=== PATIENT | male | born 1990 | race Caucasian/White ===

== ENCOUNTER 2017-03-05 23:10 | Emergency (ER) | payer BC, MEDICAID ==
[2017-03-05 23:26] VITALS: BP 186/109
== END 2017-03-06 01:08 | disposition left against medical advice (07) ==
LOC: MW.ED 23:10
DX: Z53.20 Procedure and treatment not carried out because of patient's decision for unspecified reasons (principal)
CPT/HCPCS: 93005; 99283-25

== ENCOUNTER 2017-06-23 08:20 | Emergency (ER) | payer MEDICAID ==
[2017-06-23] MEDS ORDERED: Sodium Chloride 0.9% 1,000 ML IV SCH (08:45)
[2017-06-23] MEDS ORDERED: Sodium Chloride 0.9% 2,000 ML IV ONE (08:45)
--- NOTE | 2017-06-23 08:49 | EDM.PDOC ---
ED HPI GENERAL MEDICAL PROBLEM - General Chief Complaint: General Stated Complaint: EXCESSIVE THIRST Time Seen by Provider: 06/23/17 10:57 - History of Present Illness INITIAL COMMENTS - FREE TEXT/NARRATIVE: HISTORY AND PHYSICAL: History of present illness: Patient 27-year-old white male presents with concern of polydipsia polyuria and blood sugar that was high per friends reading along with positive ketones in his urine he states he's had these symptoms for the better part of one week. He denies vomiting diarrhea fever chills chest pain shortness breath or other concern Review of systems: As per history of present illness and below otherwise all systems reviewed and negative. Past medical history: As per history of present illness and as reviewed below otherwise noncontributory. Surgical history: As per history of present illness and as reviewed below otherwise noncontributory. Social history: No reported history of drug or alcohol abuse. Family history: As per history of present illness and as reviewed below otherwise noncontributory. Physical exam: HEENT: Atraumatic, normocephalic, pupils reactive, negative for conjunctival pallor or scleral icterus, mucous membranes dry, throat clear, neck supple, nontender, trachea midline. Lungs: Clear to auscultation, breath sounds equal bilaterally, chest nontender. Heart: S1S2, regular, negative for clicks, rubs, or JVD. Abdomen: Soft, nondistended, nontender. Negative for masses or hepatosplenomegaly. Negative for costovertebral tenderness. Pelvis: Stable nontender. Genitourinary: Deferred. Rectal: Deferred. Extremities: Atraumatic, negative for cords or calf pain. Neurovascular unremarkable. Neuro: Awake, alert, oriented. Cranial nerves II through XII unremarkable. Cerebellum unremarkable. Motor and sensory unremarkable throughout. Exam nonfocal. Diagnostics: CBC CMP EKG chest x-ray ABG UA serum ketones Therapeutics: Normal saline 2 L bolus Impression: #1 new onset diabetes Definitive disposition and diagnosis as appropriate pending reevaluation and review of above. - Related Data Allergies Allergy/AdvReac Type Severity Reaction Status Date / Time No Known Allergies Allergy Verified 06/23/17 08:27 Home Meds: Home Meds . [No Known Home Meds] 03/05/17 [History] Past Medical History - Past Health History Medical/Surgical History: Denies Medical/Surgical History HEENT History: Reports: None Other HEENT History: multiple dental caries Cardiovascular History: Reports: Hypertension Other Cardiovascular History: pt claimed that he has on and off high BP but not on any medication Respiratory History: Reports: None Gastrointestinal History: Reports: None Genitourinary History: Reports: None Musculoskeletal History: Reports: Gout Neurological History: Reports: None Psychiatric History: Reports: Anxiety Endocrine/Metabolic History: Reports: None Hematologic History: Reports: None Oncologic (Cancer) History: Reports: None - Infectious Disease History Infectious Disease History: Reports: Chicken Pox - Past Surgical History HEENT Surgical History: Reports: Tonsillectomy Cardiovascular Surgical History: Reports: None GI Surgical History: Reports: Appendectomy Social & Family History - Family History Family Medical History: Noncontributory - Tobacco Use Smoking Status *Q: Never Smoker Used Tobacco, but Quit: Yes Month Tobacco Last Used: years ago Second Hand Smoke Exposure: No - Caffeine Use Caffeine Use: Reports: Soda Caffeine Use Comment: "every week" - Alcohol Use Days Per Week of Alcohol Use: 0 - Recreational Drug Use Recreational Drug Use: No Drug Use in Last 12 Months: No Recreational Drug Type: Reports: Marijuana/Hashish Recreational Drug Use Frequency: Not Used In Over 1 Year Recreational Drug Last Use: 5 years ago ED ROS GENERAL - Review of Systems Review Of Systems: ROS reveals no pertinent complaints other than HPI. ED EXAM, GENERAL - Physical Exam Exam: See Below (See dictation) Course - Vital Signs Last Recorded V/S: Last Vital Signs Temp 35.8 C 06/23/17 08:22 Pulse 91 06/23/17 10:40 Resp 18 06/23/17 10:40 BP 142/80 H 06/23/17 10:40 Pulse Ox 94 L 06/23/17 10:40 - Orders/Labs/Meds Orders: Active Orders 24 hr Category Date Time Status EKG Documentation Completion [RC] STAT Care 06/23/17 08:45 Active BLOOD GAS ARTERIAL [BG] Stat Lab 06/23/17 08:44 Ordered Sodium Chloride 0.9% [Normal Saline] 1,000 ml Med 06/23/17 08:45 Active IV STAT Medication Orders Sodium Chloride (Normal Saline) 1,000 mls @ 125 mls/hr IV STAT ION Last Admin: 06/23/17 10:45 Dose: 125 mls/hr Labs: Laboratory Tests 06/23/17 06/23/17 06/23/17 Range/Units 08:43 09:25 09:25 WBC 4.47 (4.0-11.0) K/uL RBC 5.59 (4.50-5.90) M/uL Hgb 16.2 (13.0-17.0) g/dL Hct 44.9 (38.0-50.0) % MCV 80.3 (80.0-98.0) fL MCH 29.0 (27.0-32.0) pg MCHC 36.1 (31.0-37.0) g/dL RDW Std Deviation 37.2 (28.0-62.0) fl RDW Coeff of Gato 13 (11.0-15.0) % Plt Count 216 (150-400) K/uL MPV 9.80 (7.40-12.00) fL Neut % (Auto) 49.3 (48.0-80.0) % Lymph % (Auto) 37.8 (16.0-40.0) % [place] % (Auto) 9.8 (0.0-15.0) % Eos % (Auto) 2.7 (0.0-7.0) % Baso % (Auto) 0.4 (0.0-1.5) % Neut # (Auto) 2.2 (1.4-5.7) K/uL Lymph # (Auto) 1.7 (0.6-2.4) K/uL [place] # (Auto) 0.4 (0.0-0.8) K/uL Eos # (Auto) 0.1 (0.0-0.7) K/uL Baso # (Auto) 0.0 (0.0-0.1) K/uL Nucleated RBC % 0.0 /100WBC Nucleated RBCs # 0 K/uL VBG pH (7.31-7.41) VBG pCO2 (35-45) mmHG VBG pO2 (30-40) mmHG VBG HCO3 (22-30) mEq/L VBG Total CO2 (41-51) mmol/L VBG Base Excess (-3.0-3.0) Sodium 138 (136-146) mmol/L Potassium 3.9 (3.5-5.1) mmol/L Chloride 102 (98-110) mmol/L Carbon Dioxide 23 (21-31) mmol/L BUN 12 (6.0-23.0) mg/dL Creatinine 1.1 (0.6-1.5) mg/dL Est Cr Clr Drug Dosing 122.75 mL/min Estimated GFR (MDRD) > 60.0 ml/min Glucose 352 H (60-110) mg/dL POC Glucose 277 H (60-110) mg/dL Calcium 9.6 (8.8-10.8) mg/dL Total Bilirubin 0.7 (0.1-1.5) mg/dL AST 48 H (5-40) IU/L ALT 119 H (8-54) IU/L Alkaline Phosphatase 86 (40-150) Total Protein 7.6 (6.0-8.0) g/dL Albumin 4.5 (3.5-5.0) g/dL Globulin 3.1 (2.0-3.5) g/dL Albumin/Globulin Ratio 1.5 (1.3-2.8) Urine Color Urine Appearance Urine pH (5.0-8.0) Ur Specific [place] (1.001-1.035) Urine Protein (NEGATIVE) mg/dL Urine Glucose (UA) (NEGATIVE) mg/dL Urine Ketones (NEGATIVE) mg/dL Urine Occult Blood (NEGATIVE) Urine Nitrite (NEGATIVE) Urine Bilirubin (NEGATIVE) Urine Ictotest Urine Urobilinogen (<2.0) EU/dL Ur Leukocyte Esterase (NEGATIVE) Urine RBC (0-2/HPF) Urine WBC (0-5/HPF) Ur Epithelial Cells (NONE-FEW) Amorphous Sediment (NEGATIVE) Urine Bacteria (NEGATIVE) Fine Granular Casts (NEGATIVE) Ketones (NEG) 06/23/17 06/23/17 06/23/17 Range/Units 09:25 09:25 10:09 WBC (4.0-11.0) K/uL RBC (4.50-5.90) M/uL Hgb (13.0-17.0) g/dL Hct (38.0-50.0) % MCV (80.0-98.0) fL MCH (27.0-32.0) pg MCHC (31.0-37.0) g/dL RDW Std Deviation (28.0-62.0) fl RDW Coeff of [place]ato (11.0-15.0) % Plt Count (150-400) K/uL MPV (7.40-12.00) fL Neut % (Auto) (48.0-80.0) % Lymph % (Auto) (16.0-40.0) % [place] % (Auto) (0.0-15.0) % Eos % (Auto) (0.0-7.0) % Baso % (Auto) (0.0-1.5) % Neut # (Auto) (1.4-5.7) K/uL Lymph # (Auto) (0.6-2.4) K/uL [place] # (Auto) (0.0-0.8) K/uL Eos # (Auto) (0.0-0.7) K/uL Baso # (Auto) (0.0-0.1) K/uL Nucleated RBC % /100WBC Nucleated RBCs # K/uL VBG pH 7.37 (7.31-7.41) VBG pCO2 41 (35-45) mmHG VBG pO2 31 (30-40) mmHG VBG HCO3 24 (22-30) mEq/L VBG Total CO2 21 L (41-51) mmol/L VBG Base Excess -1.6 (-3.0-3.0) Sodium (136-146) mmol/L Potassium (3.5-5.1) mmol/L Chloride (98-110) mmol/L Carbon Dioxide (21-31) mmol/L BUN (6.0-23.0) mg/dL Creatinine (0.6-1.5) mg/dL Est Cr Clr Drug Dosing mL/min Estimated GFR (MDRD) ml/min Glucose (60-110) mg/dL POC Glucose (60-110) mg/dL Calcium (8.8-10.8) mg/dL Total Bilirubin (0.1-1.5) mg/dL AST (5-40) IU/L ALT (8-54) IU/L Alkaline Phosphatase (40-150) Total Protein (6.0-8.0) g/dL Albumin (3.5-5.0) g/dL Globulin (2.0-3.5) g/dL Albumin/Globulin Ratio (1.3-2.8) Urine Color DARK YELLOW Urine Appearance SLT CLOUDY Urine pH 6.0 (5.0-8.0) Ur Specific [place] >= 1.030 (1.001-1.035) Urine Protein 100 (NEGATIVE) mg/dL Urine Glucose (UA) 500 H (NEGATIVE) mg/dL Urine Ketones 40 H (NEGATIVE) mg/dL Urine Occult Blood NEGATIVE (NEGATIVE) Urine Nitrite NEGATIVE (NEGATIVE) Urine Bilirubin MODERATE H (NEGATIVE) Urine Ictotest NEGATIVE Urine Urobilinogen 0.2 (<2.0) EU/dL Ur Leukocyte Esterase NEGATIVE (NEGATIVE) Urine RBC 0-1 (0-2/HPF) Urine WBC 1-3 (0-5/HPF) Ur Epithelial Cells FEW (NONE-FEW) Amorphous Sediment MODERATE (NEGATIVE) Urine Bacteria FEW (NEGATIVE) Fine Granular Casts FEW (NEGATIVE) Ketones NEGATIVE (NEG) Meds: Medications Generic Name Dose Route Start Last Admin Trade Name Freq PRN Reason Stop Dose Admin Sodium Chloride 1,000 mls @ 125 mls/hr 06/23/17 08:45 06/23/17 10:45 Normal Saline IV 125 mls/hr STAT ION Administration Discontinued Medications Generic Name Dose Route Start Last Admin Trade Name Freq PRN Reason Stop Dose Admin Sodium Chloride 2,000 mls @ 999 mls/hr 06/23/17 08:45 06/23/17 09:29 Normal Saline IV 06/23/17 10:45 999 mls/hr STAT ONE Administration Departure - Departure Time of Disposition: 10:57 Disposition: Home, Self-Care 01 Condition: Good Clinical Impression: Diabetes mellitus, new onset - Discharge Information Referrals: PCP,None [Primary Care Provider] - Forms: ED Department Discharge Additional Instructions: The following information is given to patients seen in the emergency department who are being discharged to home. This information is to outline your options for follow-up care. We provide all patients seen in our emergency department with a follow-up referral. The need for follow-up, as well as the timing and circumstances, are variable depending upon the specifics of your emergency department visit. If you don't have a primary care physician on staff, we will provide you with a referral. We always advise you to contact your personal physician following an emergency department visit to inform them of the circumstance of the visit and for follow-up with them and/or the need for any referrals to a consulting specialist. The emergency department will also refer you to a specialist when appropriate. This referral assures that you have the opportunity for followup care with a specialist. All of these measure are taken in an effort to provide you with optimal care, which includes your followup. Under all circumstances we always encourage you to contact your private physician who remains a resource for coordinating your care. When calling for followup care, please make the office aware that this follow-up is from your recent emergency room visit. If for any reason you are refused follow-up, please contact the [facility] emergency department at and asked to speak to the emergency department charge nurse. Glyburide as prescribed follow-up clinic as discussed/scheduled return as needed as discussed dietary considerations as discussed - My Orders Last 24 Hours: My Active Orders 06/23/17 08:44 BLOOD GAS ARTERIAL [BG] Stat 06/23/17 08:45 EKG Documentation Completion [RC] STAT Sodium Chloride 0.9% [Normal Saline] 1,000 ml IV STAT - Assessment/Plan Last 24 Hours: My Active Orders 06/23/17 08:44 BLOOD GAS ARTERIAL [BG] Stat 06/23/17 08:45 EKG Documentation Completion [RC] STAT Sodium Chloride 0.9% [Normal Saline] 1,000 ml IV STAT
[2017-06-23 09:53] LABS: CHLORIDE,CL 102 mmol/L (98-110); SODIUM,NA 138 mmol/L (136-146)
--- NOTE | 2017-06-23 10:41 | CR ---
EXAMINATION: Two-view chest (PA and Lateral views). HISTORY: Shortness of breath. FINDINGS: The trachea is midline. The cardiomediastinal silhouette is within normal limits. No pulmonary infilt rates, effusions or pneumothorax. Osseous structures appear unremarkable. IMPRESSION: No acute cardiopulmonary process.
[2017-06-23 12:11] VITALS: BP 158/94
== END 2017-06-23 11:25 | disposition home or self-care (01) ==
LOC: MW.ED 08:20
DX: E11.9 Type 2 diabetes mellitus without complications (principal); I10 Essential (primary) hypertension; Z98.890 Other specified postprocedural states; Z90.49 Acquired absence of other specified parts of digestive tract
CPT/HCPCS: 71020; 80053; 81001; 82009; 82803; 82962; 83036; 85025; 93005; 96360; 96361; 99284; J7040

== ENCOUNTER 2018-10-28 13:48 | Inpatient (IN) | payer MEDICAID ==
[2018-10-28] MEDS ORDERED: Ondansetron 4 MG/2 ML SDV IVPUSH ONE ×2 (14:33→16:39)
[2018-10-28] MEDS ORDERED: Morphine 2 MG/ML Syringe IVPUSH ONE (14:33)
[2018-10-28] MEDS ORDERED: Pantoprazole 40 MG Vial IVPUSH ONE (14:33)
[2018-10-28] MEDS ORDERED: Sodium Chloride 0.9% 10 ML Syringe FLUSH PRN (14:33)
[2018-10-28] MEDS ORDERED: Sodium Chloride 0.9% 2.5 ML Syringe FLUSH PRN (14:33)
[2018-10-28] MEDS ORDERED: Sodium Chloride 0.9% 1,000 ML IV ONE (14:33)
--- NOTE | 2018-10-28 14:37 | EDM.PDOC ---
ED HPI GENERAL MEDICAL PROBLEM - General Chief Complaint: Gastrointestinal Problem Stated Complaint: PAIN IN MIDDLE OF CHEST Time Seen by Provider: 10/28/18 14:25 - History of Present Illness INITIAL COMMENTS - FREE TEXT/NARRATIVE: HISTORY AND PHYSICAL: History of present illness: The patient is a 28-year-old male with no significant GI or cardiac history but has a loose diagnosis of acid reflux for which he takes the prescription medication he believes to be Protonix that he was given by Dr. Montoya in clinic , with whom he follows on a regular basis, and presents with complaints of epigastric and mid upper abdominal pain that started yesterday. The patient tells me that he has episodic vomiting pretty much all the time 4-5 times per week over the last 2 years and his provider has been working with him to start evaluation of that. He has never had endoscopy or any other imaging. His only surgical history is of an appendectomy. He says he has not had any cough or upper respiratory symptoms chest pain or shortness of breath but feels a burning -like sensation in his epigastric and mid abdominal area. He's had no diarrhea no urinary complaints and no flank pain. The pain only radiates slightly to his lower mid chest but does not localize right or left. He has no liver or pancreas history that he knows of. She has not tried any [id number] meds and says he has been pushing fluids and can tolerate that but he cannot eat food without vomiting. The reason why he came in today as because he has never had pain with his vomiting symptoms and now he is having that as well. He has vomited since last evening any solids and intermittent liquids. He has had feverish feelings and chills but no documented fever Review of systems: As per history of present illness and below otherwise all systems reviewed and negative. Past medical history: As per history of present illness and as reviewed below otherwise noncontributory. Surgical history: As per history of present illness and as reviewed below otherwise noncontributory. Social history: No reported history of drug or alcohol abuse. Family history: As per history of present illness and as reviewed below otherwise noncontributory. Physical exam: General: Well-developed well-nourished overweight man who is nontoxic and looks somewhat diaphoretic on my evaluation. He is nontoxic though and speaking clearly and easily HEENT: Atraumatic, normocephalic, negative for conjunctival pallor or scleral icterus, mucous membranes moist, throat clear, neck supple, nontender, trachea midline. Lungs: Clear to auscultation, breath sounds equal bilaterally, chest nontender. No work of breathing wheezing or stridor Heart: S1S2, regular rate and rhythm no overt murmurs Abdomen: Soft, nondistended, tender in the epigastrium and extending to just above the umbilicus in the midline but there is no right upper or left upper quadrant tenderness. Negative for masses or hepatosplenomegaly. Hypoactive bowel sounds and there is no rebound or guarding or tympany on percussion Pelvis: Stable nontender. Genitourinary: Deferred. Rectal: Deferred. Extremities: Atraumatic, negative for cords or calf pain. Neurovascular unremarkable. Neuro: Awake, alert, oriented. Cranial nerves II through XII unremarkable. Cerebellum unremarkable. Motor and sensory unremarkable throughout. Exam nonfocal. Diagnostics: EKG CBC CMP amylase lipase H. pylori influenza CT scan of the abdomen and pelvis Therapeutics: IV, IV fluids, Zofran, Protonix, morphine Patient is feeling better in the ED from a pain perspective but did require a second dose of Zofran for nausea. He has not had any vomiting here. I discussed with him and his significant other at bedside all testing results and need for observation admission for pancreatitis. He is agreeable and states understanding. 1718: case is discussed with Dr. Mayes who accepts the patient for observation admission. Impression: Epigastric abdominal pain and vomiting/pancreatitis ; history of episodic vomiting Definitive disposition and diagnosis as appropriate pending reevaluation and review of above. upper abd Pain Score (Numeric/FACES): 9 - Related Data Allergies Allergy/AdvReac Type Severity Reaction Status Date / Time No Known Allergies Allergy Verified 06/23/17 08:27 Home Meds: Home Meds . [No Known Home Meds] 03/05/17 [History] Past Medical History - Past Health History Medical/Surgical History: Denies Medical/Surgical History HEENT History: Reports: None Other HEENT History: multiple dental caries Cardiovascular History: Reports: Hypertension Other Cardiovascular History: pt claimed that he has on and off high BP but not on any medication Respiratory History: Reports: None Gastrointestinal History: Reports: None Genitourinary History: Reports: None Other Genitourinary History: fatty liver disease Musculoskeletal History: Reports: Gout Neurological History: Reports: None Psychiatric History: Reports: Anxiety Endocrine/Metabolic History: Reports: Diabetes, Type II Hematologic History: Reports: None Oncologic (Cancer) History: Reports: None - Infectious Disease History Infectious Disease History: Reports: Chicken Pox - Past Surgical History HEENT Surgical History: Reports: Tonsillectomy Cardiovascular Surgical History: Reports: None GI Surgical History: Reports: Appendectomy Social & Family History - Family History Family Medical History: Noncontributory - Tobacco Use Smoking Status *Q: Never Smoker - Caffeine Use Caffeine Use: Reports: Soda Caffeine Use Comment: "every week" - Recreational Drug Use Recreational Drug Use: No ED ROS GENERAL - Review of Systems Review Of Systems: ROS reveals no pertinent complaints other than HPI. ED EXAM, GENERAL - Physical Exam Exam: See Below (see Dictation) Course - Vital Signs Last Recorded V/S: Last Vital Signs Temp 36.4 C 10/28/18 14:06 Pulse 104 H 10/28/18 16:02 Resp 18 10/28/18 16:02 BP 132/59 L 10/28/18 16:02 Pulse Ox 98 10/28/18 16:02 - Orders/Labs/Meds Orders: Active Orders 24 hr Category Date Time Status Patient Status [ADT] Stat ADT 10/28/18 17:17 Ordered EKG Documentation Completion [RC] STAT Care 10/28/18 14:32 Active Abdomen Pelvis w Cont [CT] Stat Exams 10/28/18 14:32 Taken D5 1/2 NS w/ 20 mEq/L KCl 1,000 ml Med 10/28/18 17:15 Active IV ASDIRECTED Sodium Chloride 0.9% [Saline Flush] Med 10/28/18 14:33 Active 10 ml FLUSH ASDIRECTED PRN Sodium Chloride 0.9% [Saline Flush] Med 10/28/18 14:33 Active 2.5 ml FLUSH ASDIRECTED PRN Saline Lock Insert [OM.PC] Stat Oth 10/28/18 14:32 Ordered Medication Orders Potassium Chloride/Dextrose/Sod Cl (D5 1/2 Ns W/ 20 Meq/L Kcl) 1,000 mls @ 150 mls/hr IV ASDIRECTED ION Sodium Chloride (Saline Flush) 10 ml FLUSH ASDIRECTED PRN PRN Reason: Keep Vein Open Last Admin: 10/28/18 14:46 Dose: 10 ml Sodium Chloride (Saline Flush) 2.5 ml FLUSH ASDIRECTED PRN PRN Reason: Keep Vein Open Last Admin: 10/28/18 14:46 Dose: 2.5 ml Labs: Laboratory Tests 10/28/18 10/28/18 10/28/18 Range/Units 14:43 14:43 14:43 WBC 9.69 (4.0-11.0) K/uL RBC 6.11 H (4.50-5.90) M/uL Hgb 17.0 (13.0-17.0) g/dL Hct 49.4 (38.0-50.0) % MCV 80.9 (80.0-98.0) fL MCH 27.8 (27.0-32.0) pg MCHC 34.4 (31.0-37.0) g/dL RDW Std Deviation 39.2 (28.0-62.0) fl RDW Coeff of Gato 13 (11.0-15.0) % Plt Count 238 (150-400) K/uL MPV 9.50 (7.40-12.00) fL Neut % (Auto) 66.9 (48.0-80.0) % Lymph % (Auto) 19.6 (16.0-40.0) % [place] % (Auto) 10.2 (0.0-15.0) % Eos % (Auto) 3.1 (0.0-7.0) % Baso % (Auto) 0.2 (0.0-1.5) % Neut # (Auto) 6.5 H (1.4-5.7) K/uL Lymph # (Auto) 1.9 (0.6-2.4) K/uL [place] # (Auto) 1.0 H (0.0-0.8) K/uL Eos # (Auto) 0.3 (0.0-0.7) K/uL Baso # (Auto) 0.0 (0.0-0.1) K/uL Nucleated RBC % 0.0 /100WBC Nucleated RBCs # 0 K/uL Sodium 133 L (136-148) mmol/L Potassium 4.4 (3.5-5.1) mmol/L Chloride 99 (98-107) mmol/L Carbon Dioxide 16.4 L (21.0-32.0) mmol/L BUN 12 (7.0-18.0) mg/dL Creatinine 0.9 (0.8-1.3) mg/dL Est Cr Clr Drug Dosing 148.69 mL/min Estimated GFR (MDRD) > 60.0 ml/min Glucose 150 H (74-106) mg/dL Calcium 9.2 (8.5-10.1) mg/dL Total Bilirubin 0.7 (0.2-1.0) mg/dL AST 45 H (15-37) IU/L ALT 190 H (14-63) IU/L Alkaline Phosphatase 81 (46-116) U/L Total Protein 8.6 H (6.4-8.2) g/dL Albumin 4.1 (3.4-5.0) g/dL Globulin 4.5 H (2.6-4.0) g/dL Albumin/Globulin Ratio 0.9 (0.9-1.6) Amylase 112 (25-115) U/L Lipase 2121 H (73-393) U/L H. pylori IgG Antibody NEGATIVE (NEG) Meds: Medications Generic Name Dose Route Start Last Admin Trade Name Freq PRN Reason Stop Dose Admin Potassium Chloride/Dextrose/Sod Cl 1,000 mls @ 150 mls/hr 10/28/18 17:15 D5 1/2 Ns W/ 20 Meq/L Kcl IV ASDIRECTED ION Sodium Chloride 10 ml 10/28/18 14:33 10/28/18 14:46 Saline Flush FLUSH 10 ml ASDIRECTED PRN Administration Keep Vein Open Sodium Chloride 2.5 ml 10/28/18 14:33 10/28/18 14:46 Saline Flush FLUSH 2.5 ml ASDIRECTED PRN Administration Keep Vein Open Discontinued Medications Generic Name Dose Route Start Last Admin Trade Name Freq PRN Reason Stop Dose Admin Sodium Chloride 1,000 mls @ 999 mls/hr 10/28/18 14:33 10/28/18 14:46 Normal Saline IV 10/28/18 15:33 999 mls/hr STAT ONE Administration Iopamidol 100 ml 10/28/18 16:09 10/28/18 16:09 Isovue Multipack-370 (76%) IVPUSH 10/28/18 16:10 100 ml ONETIME STA Administration Morphine Sulfate 4 mg 10/28/18 14:33 10/28/18 14:46 Morphine IVPUSH 10/28/18 14:34 4 mg ONETIME ONE Administration Ondansetron HCl 4 mg 10/28/18 14:33 10/28/18 14:46 Zofran IVPUSH 10/28/18 14:34 4 mg ONETIME ONE Administration Ondansetron HCl 4 mg 10/28/18 16:39 10/28/18 16:45 Zofran IVPUSH 10/28/18 16:40 4 mg ONETIME ONE Administration Pantoprazole Sodium 80 mg 10/28/18 14:33 10/28/18 14:46 Protonix Iv IVPUSH 10/28/18 14:34 80 mg .BOLUS ONE Administration Departure - Departure Time of Disposition: 17:18 Disposition: Refer to Observation Condition: Good Clinical Impression: Pancreatitis - Discharge Information Referrals: Shan Montoya MD [Primary Care Provider] - Forms: ED Department Discharge - My Orders Last 24 Hours: My Active Orders 10/28/18 14:32 EKG Documentation Completion [RC] STAT Abdomen Pelvis w Cont [CT] Stat Saline Lock Insert [OM.PC] Stat 10/28/18 14:33 Sodium Chloride 0.9% [Saline Flush] 10 ml FLUSH ASDIRECTED PRN Sodium Chloride 0.9% [Saline Flush] 2.5 ml FLUSH ASDIRECTED PRN 10/28/18 17:15 D5 1/2 NS w/ 20 mEq/L KCl 1,000 ml IV ASDIRECTED 10/28/18 17:17 Patient Status [ADT] Stat - Assessment/Plan Last 24 Hours: My Active Orders 10/28/18 14:32 EKG Documentation Completion [RC] STAT Abdomen Pelvis w Cont [CT] Stat Saline Lock Insert [OM.PC] Stat 10/28/18 14:33 Sodium Chloride 0.9% [Saline Flush] 10 ml FLUSH ASDIRECTED PRN Sodium Chloride 0.9% [Saline Flush] 2.5 ml FLUSH ASDIRECTED PRN 10/28/18 17:15 D5 1/2 NS w/ 20 mEq/L KCl 1,000 ml IV ASDIRECTED 10/28/18 17:17 Patient Status [ADT] Stat
[2018-10-28 15:28] LABS: CHLORIDE,CL 99 mmol/L (98-107); SODIUM,NA 133 mmol/L (136-148)
[2018-10-28] MEDS ORDERED: Iopamidol 755 MG/ML 500 ML Multipack Bottle IVPUSH STA (16:09)
[2018-10-28] MEDS ORDERED: D5 1/2 NS w/ 20 mEq/L KCl 1,000 ML IV SCH (17:15)
[2018-10-28] MEDS ORDERED: Acetaminophen 325 MG Tab PO PRN (17:35)
--- NOTE | 2018-10-28 17:43 | PCM.HP ---
H&P History of Present Illness - General Date of Service: 10/28/18 Admit Problem/Dx: Admission Diagnosis/Problem Admission Diagnosis/Problem Pancreatitis Source of Information: Patient History Limitations: Reports: No Limitations - History of Present Illness Initial Comments - Free Text/Narative: The patient is a 28-year-old gentleman who presented to the emergency department this afternoon with a complaint of abdominal pain in the epigastrium that had been going on for past 3-4 days. The patient also says that he has had periods of episodic vomiting 4-5 times a week over the past several years as well. The patient has described the pain in the epigastrium as sharp, stabbing and burning type sensation in the lower part of his chest. The patient says that he does not have a history of H. pylori. The patient also has reported episodes of waterbrash waking him up in the middle of the night. The patient has denied alcohol consumption recently. Patient also has had no specific aggravating or relieving factors for his pain. Patient has denied any fevers but has had chills and sweating associated with this episode. The patient only has had an appendectomy recently. He is also being treated for hypertension. Patient is also taking medication for depression as well. The patient has been taking medication for diabetes as well. Onset of Symptoms: Reports: Gradual Duration of Symptoms: Reports: Day(s):, Getting Worse Location: Reports: Abdomen Quality: Reports: Burning, Stabbing Severity: Moderate Improves with: Reports: Rest Worsens with: Reports: Movement Associated Symptoms: Reports: Diaphoresis, Fever/Chills upper abd Pain Score (Numeric/FACES): 9 Epigastric Pain Score (Numeric/FACES): 4 - Related Data Allergies/Adverse Reactions: Allergies Allergy/AdvReac Type Severity Reaction Status Date / Time No Known Allergies Allergy Verified 06/23/17 08:27 Home Medications: Home Meds Empagliflozin [Jardiance] 10 mg PO DAILY 10/28/18 [History] Escitalopram [Lexapro] 10 mg PO DAILY 10/28/18 [History] Liraglutide [Victoza 3-[place]] 1.2 mg SUBCUT DAILY 10/28/18 [History] Lisinopril [Prinivil] 5 mg PO DAILY 10/28/18 [History] Pantoprazole Sodium [Protonix] 40 mg PO DAILY 10/28/18 [History] Rosuvastatin Calcium 20 mg PO BEDTIME 10/28/18 [History] Testosterone Cypionate 100 mg IM WEEKLY 10/28/18 [History] metFORMIN HCl [Glucophage] 1,000 mg PO BIDMEALS 10/28/18 [History] Past Medical History - Past Health History Medical/Surgical History: Denies Medical/Surgical History HEENT History: Reports: None Other HEENT History: multiple dental caries Cardiovascular History: Reports: Hypertension Other Cardiovascular History: pt claimed that he has on and off high BP but not on any medication Respiratory History: Reports: None Gastrointestinal History: Reports: None Genitourinary History: Reports: None Other Genitourinary History: fatty liver disease Musculoskeletal History: Reports: Gout Neurological History: Reports: None Psychiatric History: Reports: Anxiety Endocrine/Metabolic History: Reports: Diabetes, Type II Hematologic History: Reports: None Immunologic History: Reports: None Oncologic (Cancer) History: Reports: None - Infectious Disease History Infectious Disease History: Reports: Chicken Pox - Past Surgical History HEENT Surgical History: Reports: Tonsillectomy Cardiovascular Surgical History: Reports: None GI Surgical History: Reports: Appendectomy Social & Family History - Family History Family Medical History: Noncontributory - Tobacco Use Smoking Status *Q: Never Smoker - Caffeine Use Caffeine Use: Reports: Soda Caffeine Use Comment: "every week" - Recreational Drug Use Recreational Drug Use: No - Living Situation & Occupation Living situation: Reports: Single, with Family Occupation: Unemployed H&P Review of Systems - Review of Systems: Review Of Systems: See Below General: Reports: Malaise, Weakness HEENT: Reports: No Symptoms Pulmonary: Reports: Shortness of Breath Cardiovascular: Reports: No Symptoms Gastrointestinal: Reports: Abdominal Pain. Denies: Black Stool, Hematemesis, Hematochezia Genitourinary: Reports: No Symptoms Musculoskeletal: Reports: Back Pain Skin: Reports: No Symptoms Psychiatric: Reports: No Symptoms Neurological: Reports: Dizziness Hematologic/Lymphatic: Reports: No Symptoms Immunologic: Reports: No Symptoms Exam - Exam Exam: See Below - Vital Signs Vital Signs: Last Vital Signs Temp 36.4 C 10/28/18 14:06 Pulse 106 H 10/28/18 17:33 Resp 16 10/28/18 17:33 BP 122/73 10/28/18 17:33 Pulse Ox 95 10/28/18 17:33 Weight: 181.437 kg - Exam Quality Assessment: No: Supplemental Oxygen General: Alert (Obese), Oriented, Cooperative, Moderate Distress HEENT: Conjunctiva Clear, EACs Clear, EOMI, Nares Patent. No: Mucosa Moist & [place] (Dry) Neck: Supple, Trachea Midline Lungs: Clear to Auscultation, Normal Respiratory Effort Cardiovascular: Regular Rhythm, Tachycardia (Rate is 110 on monitor.) GI/Abdominal Exam: Normal Bowel Sounds, Soft, No Distention, Tender (Epigastrum) , Other (Obese). No: Guarding, Rigid, Rebound (Male) Exam: Deferred Rectal (Males) Exam: Deferred Back Exam: Normal Inspection, Full Range of Motion Extremities: Normal Inspection, No Pedal Edema Skin: Warm, Dry, Intact Neurological: Cranial Nerves Intact, Reflexes Equal Bilateral Neuro Extensive - Mental Status: Alert Psychiatric: Alert, Normal Affect, Normal Mood - Patient Data Lab Results Last 24 hrs: Laboratory Results - last 24 hr 10/28/18 10/28/18 10/28/18 Range/Units 14:43 14:43 14:43 WBC 9.69 (4.0-11.0) K/uL RBC 6.11 H (4.50-5.90) M/uL Hgb 17.0 (13.0-17.0) g/dL Hct 49.4 (38.0-50.0) % MCV 80.9 (80.0-98.0) fL MCH 27.8 (27.0-32.0) pg MCHC 34.4 (31.0-37.0) g/dL RDW Std Deviation 39.2 (28.0-62.0) fl RDW Coeff of Gato 13 (11.0-15.0) % Plt Count 238 (150-400) K/uL MPV 9.50 (7.40-12.00) fL Neut % (Auto) 66.9 (48.0-80.0) % Lymph % (Auto) 19.6 (16.0-40.0) % [place] % (Auto) 10.2 (0.0-15.0) % Eos % (Auto) 3.1 (0.0-7.0) % Baso % (Auto) 0.2 (0.0-1.5) % Neut # (Auto) 6.5 H (1.4-5.7) K/uL Lymph # (Auto) 1.9 (0.6-2.4) K/uL [place] # (Auto) 1.0 H (0.0-0.8) K/uL Eos # (Auto) 0.3 (0.0-0.7) K/uL Baso # (Auto) 0.0 (0.0-0.1) K/uL Nucleated RBC % 0.0 /100WBC Nucleated RBCs # 0 K/uL Sodium 133 L (136-148) mmol/L Potassium 4.4 (3.5-5.1) mmol/L Chloride 99 (98-107) mmol/L Carbon Dioxide 16.4 L (21.0-32.0) mmol/L BUN 12 (7.0-18.0) mg/dL Creatinine 0.9 (0.8-1.3) mg/dL Est Cr Clr Drug Dosing 148.69 mL/min Estimated GFR (MDRD) > 60.0 ml/min Glucose 150 H (74-106) mg/dL Calcium 9.2 (8.5-10.1) mg/dL Total Bilirubin 0.7 (0.2-1.0) mg/dL AST 45 H (15-37) IU/L ALT 190 H (14-63) IU/L Alkaline Phosphatase 81 (46-116) U/L Total Protein 8.6 H (6.4-8.2) g/dL Albumin 4.1 (3.4-5.0) g/dL Globulin 4.5 H (2.6-4.0) g/dL Albumin/Globulin Ratio 0.9 (0.9-1.6) Amylase 112 (25-115) U/L Lipase 2121 H (73-393) U/L H. pylori IgG Antibody NEGATIVE (NEG) Result Diagrams: 10/29/18 05:49 10/29/18 05:49 Tai Results Last 24 hrs: Microbiology 10/28/18 14:05 Influenza Type A Antigen Screen - Final Nasopharyngeal Swab NEGATIVE INFLUENZA A VIRUS AG Influenza Type B Antigen Screen - Final NEGATIVE INFLUENZA B VIRUS AG - Problem List (1) Pancreatitis SNOMED Code(s): 48391123 ICD Code: K85.90 - ACUTE PANCREATITIS WITHOUT NECROSIS OR INFECTION, UNSP Status: Acute Priority: High Current Visit: Yes (2) Hypertension SNOMED Code(s): 20458851 ICD Code: I10 - ESSENTIAL (PRIMARY) HYPERTENSION Status: Chronic Priority : High Current Visit: Yes Qualifiers: Hypertension type: essential hypertension Qualified Code(s): I10 - Essential (primary) hypertension (3) Morbid obesity with BMI of 45.0-49.9, adult SNOMED Code(s): 897804773 ICD Code: E66.01 - MORBID (SEVERE) OBESITY DUE TO EXCESS CALORIES; Z68.42 - BODY MASS INDEX (BMI) 45.0-49.9, ADULT Status: Chronic Priority: High Current Visit: Yes (4) Transaminitis SNOMED Code(s): 946457543, 526569772 ICD Code: R74.0 - NONSPEC ELEV OF LEVELS OF TRANSAMNS & LACTIC ACID DEHYDRGNSE Status: Chronic Priority: High Current Visit: Yes (5) Diabetes mellitus, new onset SNOMED Code(s): 874593488, 002759048 ICD Code: E11.9 - TYPE 2 DIABETES MELLITUS WITHOUT COMPLICATIONS Status: Chronic Priority: High Current Visit: Yes Problem List Initiated/Reviewed/Updated: Yes Orders Last 24hrs: Active Orders 24 hr Category Date Time Status Patient Status [ADT] Stat ADT 10/28/18 17:17 Active Blood Glucose Check, Bedside [RC] QIDACANDBED Care 10/28/18 17:35 Ordered Blood Glucose Check, Bedside [RC] WITHMEALSANDBED Care 10/28/18 17:35 Ordered Diabetes Education [RC] Click to Edit Care 10/28/18 17:37 Ordered EKG Documentation Completion [RC] STAT Care 10/28/18 14:32 Active Oxygen Therapy [RC] PRN Care 10/28/18 17:33 Ordered Oxygen Therapy [RC] PRN Care 10/28/18 17:35 Ordered Up ad Renate [RC] ASDIRECTED Care 10/28/18 17:33 Ordered VTE/DVT Education [RC] PER UNIT ROUTINE Care 10/28/18 17:33 Ordered VTE/DVT Education [RC] PER UNIT ROUTINE Care 10/28/18 17:35 Ordered Vital Signs [RC] Q4H Care 10/28/18 17:33 Ordered Vital Signs [RC] Q4H Care 10/28/18 17:35 Ordered Nothing per Oral Now Diet [DIET] Diet 10/28/18 Breakfast Ordered Abdomen Ltd [US] Routine Exams 10/28/18 17:38 Ordered Abdomen Pelvis w Cont [CT] Stat Exams 10/28/18 14:32 Taken CBC WITH AUTO DIFF [HEME] AM Lab 10/29/18 05:11 Ordered COMPREHENSIVE METABOLIC PN,CMP [CHEM] AM Lab 10/29/18 05:11 Ordered LIPID PANEL [CHEM] Routine Lab 10/29/18 05:11 Ordered Acetaminophen [Tylenol] Med 10/28/18 17:35 Ordered 650 mg PO Q4H PRN D5 1/2 NS w/ 20 mEq/L KCl 1,000 ml Med 10/28/18 17:15 Active IV ASDIRECTED Enoxaparin [Lovenox] Med 10/28/18 17:45 Ordered 30 mg SUBCUT Q24H Insulin Aspart [NovoLOG] Med 10/28/18 21:00 Ordered See Protocol SUBCUT ACBREAKFASTANDBED Morphine Med 10/28/18 17:35 Ordered 2 mg IVPUSH Q2H PRN Ondansetron [Zofran] Med 10/28/18 17:35 Ordered 4 mg IVPUSH Q4H PRN Sodium Chloride 0.9% @ 125 MLS/HR (1000ml) Med 10/28/18 17:45 Ordered Sodium Chloride 0.9% [Normal Saline] 1,000 ml IV ASDIRECTED Sodium Chloride 0.9% [Saline Flush] Med 10/28/18 14:33 Active 10 ml FLUSH ASDIRECTED PRN Sodium Chloride 0.9% [Saline Flush] Med 10/28/18 14:33 Active 2.5 ml FLUSH ASDIRECTED PRN Glucose Management Sub Q Reflex [OM.PC] Click To Edit Oth 10/28/18 17:35 Ordered Saline Lock Insert [OM.PC] Stat Oth 10/28/18 14:32 Ordered Resuscitation Status Routine Resus Stat 10/28/18 17:33 Ordered Medication Orders Potassium Chloride/Dextrose/Sod Cl (D5 1/2 Ns W/ 20 Meq/L Kcl) 1,000 mls @ 150 mls/hr IV ASDIRECTED ION Last Admin: 10/28/18 17:32 Dose: 150 mls/hr Sodium Chloride (Saline Flush) 10 ml FLUSH ASDIRECTED PRN PRN Reason: Keep Vein Open Last Admin: 10/28/18 14:46 Dose: 10 ml Sodium Chloride (Saline Flush) 2.5 ml FLUSH ASDIRECTED PRN PRN Reason: Keep Vein Open Last Admin: 10/28/18 14:46 Dose: 2.5 ml Assessment/Plan Comment:: The patient is a 28-year-old gentleman who had been recently diagnosed with type 2 diabetes, hypertension and now has pancreatitis. The patient's lipase was elevated at 2121 units per liter and ceased CT scan showed stranding consistent with pancreatitis. Patient's physical examination is also consistent with acute pancreatitis. He has denied any alcohol use. I've ordered an ultrasound of his abdomen in order to exclude radiolucent gallstones as a cause of the patient's pancreatitis. I've also ordered a fasting lipid panel. The patient will be admitted to acute hospitalization. He'll be kept nothing by mouth. I've ordered fluids of normal saline at 125 mL per hour. The patient will also have IV narcotics for pain control. The patient should be appropriate for discharge as all laboratory testing is been completed, symptoms have improved and he has been able to tolerate diet. Interestingly the patient had been started on Victoza for his diabetes and pancreatitis has been listed as a severe side effect. Once other causes have been ruled out this can be considered as a likely contributor to the patient's pancreatitis.
[2018-10-28] MEDS: Sodium Chloride 0.9% 1,000 ML IV SCH (19:44)
[2018-10-28] MEDS: Morphine 10 MG/ML Syringe IVPUSH PRN (19:45)
[2018-10-28] MEDS: Enoxaparin 40 MG/0.4 ML Syringe SUBCUT SCH (20:36)
[2018-10-28] MEDS: Ondansetron 4 MG/2 ML SDV IVPUSH PRN (20:37)
[2018-10-28] MEDS ORDERED: Alum Hydrox/Mag Hydrox/Simeth 15 ML, Lidocaine 2% 5 ML PO ONE ×2 (20:47)
[2018-10-28] MEDS ORDERED: Insulin Aspart 100 Units/ML 3 ML Pen SUBCUT SCH (21:00)
[2018-10-28] MEDS ORDERED: Non-Formulary Medication 1 Each (Rosuvastatin Calcium [Rosuvastatin Calcium] 20 MG) PO SCH (21:00)
[2018-10-28] MEDS: Insulin Aspart 100 Units/ML 3 ML Pen SUBCUT SCH (21:01)
[2018-10-29] MEDS: Sodium Chloride 0.9% 1,000 ML IV SCH ×3 (03:46→19:04)
[2018-10-29] MEDS: Insulin Aspart 100 Units/ML 3 ML Pen SUBCUT SCH ×4 (03:52→21:17)
[2018-10-29] MEDS: Ondansetron 4 MG/2 ML SDV IVPUSH PRN ×3 (05:59→23:33)
[2018-10-29 06:35] LABS: CHLORIDE,CL 104 mmol/L (98-107); SODIUM,NA 138 mmol/L (136-148)
[2018-10-29] MEDS: Escitalopram 10 MG Tab PO SCH (08:04)
[2018-10-29] MEDS: Lisinopril 5 MG Tab PO SCH (08:07)
[2018-10-29] MEDS: Morphine 10 MG/ML Syringe IVPUSH PRN (08:07)
[2018-10-29] MEDS ORDERED: Morphine 2 MG/ML Syringe IVPUSH PRN (08:15)
[2018-10-29] MEDS ORDERED: Ibuprofen 600 MG Tab PO PRN (09:52)
[2018-10-29] MEDS ORDERED: traMADol 50 MG Tab PO PRN (09:53)
--- NOTE | 2018-10-29 10:41 | PCM.PN ---
- General Info Date of Service: 10/29/18 Admission Dx/Problem (Free Text): Admission Diagnosis/Problem Admission Diagnosis/Problem Pancreatitis Subjective Update: The patient is a 28-year-old gentleman who had been admitted yesterday secondary to acute pancreatitis. The patient also has new onset diabetes and he says that he was started on Victoza on 13 October. The patient also has a history of chronic nausea and vomiting. Overall, the patient's pain is better controlled. He has no nausea at this time. The patient has not been ambulating as he still has been on fluids. The patient also has been complaining of mild dysuria for the past couple of times he has urinated. Functional Status: Reports: Pain Controlled, Tolerating Diet (Clear liquids) - Review of Systems General: Reports: Weakness HEENT: Reports: No Symptoms Pulmonary: Reports: No Symptoms Cardiovascular: Reports: No Symptoms Gastrointestinal: Reports: No Symptoms Genitourinary: Reports: Dysuria, Burning Musculoskeletal: Reports: No Symptoms Skin: Reports: No Symptoms Neurological: Reports: No Symptoms Psychiatric: Reports: No Symptoms - Patient Data Vitals - Most Recent: Last Vital Signs Temp 36.3 C 10/29/18 08:18 Pulse 104 H 10/29/18 08:18 Resp 16 10/29/18 08:18 BP 115/54 L 10/29/18 08:18 Pulse Ox 94 L 10/29/18 08:18 Weight - Most Recent: 181.437 kg I&O - Last 24 Hours: Intake & Output 10/28/18 10/29/18 10/29/18 22:59 06:59 14:59 Intake Total 262 1072 Output Total 350 Balance 262 722 Lab Results Last 24 Hours: Laboratory Results - last 24 hr 10/28/18 10/28/18 10/28/18 Range/Units 14:43 14:43 14:43 WBC 9.69 (4.0-11.0) K/uL RBC 6.11 H (4.50-5.90) M/uL Hgb 17.0 (13.0-17.0) g/dL Hct 49.4 (38.0-50.0) % MCV 80.9 (80.0-98.0) fL MCH 27.8 (27.0-32.0) pg MCHC 34.4 (31.0-37.0) g/dL RDW Std Deviation 39.2 (28.0-62.0) fl RDW Coeff of Gato 13 (11.0-15.0) % Plt Count 238 (150-400) K/uL MPV 9.50 (7.40-12.00) fL Neut % (Auto) 66.9 (48.0-80.0) % Lymph % (Auto) 19.6 (16.0-40.0) % [place] % (Auto) 10.2 (0.0-15.0) % Eos % (Auto) 3.1 (0.0-7.0) % Baso % (Auto) 0.2 (0.0-1.5) % Neut # (Auto) 6.5 H (1.4-5.7) K/uL Lymph # (Auto) 1.9 (0.6-2.4) K/uL [place] # (Auto) 1.0 H (0.0-0.8) K/uL Eos # (Auto) 0.3 (0.0-0.7) K/uL Baso # (Auto) 0.0 (0.0-0.1) K/uL Nucleated RBC % 0.0 /100WBC Nucleated RBCs # 0 K/uL Sodium 133 L (136-148) mmol/L Potassium 4.4 (3.5-5.1) mmol/L Chloride 99 (98-107) mmol/L Carbon Dioxide 16.4 L (21.0-32.0) mmol/L BUN 12 (7.0-18.0) mg/dL Creatinine 0.9 (0.8-1.3) mg/dL Est Cr Clr Drug Dosing 148.69 mL/min Estimated GFR (MDRD) > 60.0 ml/min Glucose 150 H (74-106) mg/dL POC Glucose (60-110) mg/dL Calcium 9.2 (8.5-10.1) mg/dL Total Bilirubin 0.7 (0.2-1.0) mg/dL AST 45 H (15-37) IU/L ALT 190 H (14-63) IU/L Alkaline Phosphatase 81 (46-116) U/L Total Protein 8.6 H (6.4-8.2) g/dL Albumin 4.1 (3.4-5.0) g/dL Globulin 4.5 H (2.6-4.0) g/dL Albumin/Globulin Ratio 0.9 (0.9-1.6) Triglycerides (0-200) mg/dL Cholesterol (50-200) mg/dL LDL Cholesterol, Calc (60-180) mg/dL VLDL Cholesterol (5-55) mg/dL HDL Cholesterol (40-60) mg/dL Cholesterol/HDL Ratio (3.3-6.0) Amylase 112 (25-115) U/L Lipase 2121 H (73-393) U/L H. pylori IgG Antibody NEGATIVE (NEG) 10/28/18 10/29/18 10/29/18 Range/Units 20:43 03:50 05:49 WBC 7.05 (4.0-11.0) K/uL RBC 5.37 (4.50-5.90) M/uL Hgb 14.7 (13.0-17.0) g/dL Hct 43.9 (38.0-50.0) % MCV 81.8 (80.0-98.0) fL MCH 27.4 (27.0-32.0) pg MCHC 33.5 (31.0-37.0) g/dL RDW Std Deviation 40.1 (28.0-62.0) fl RDW Coeff of Gato 14 (11.0-15.0) % Plt Count 224 (150-400) K/uL MPV 9.40 (7.40-12.00) fL Neut % (Auto) 62.2 (48.0-80.0) % Lymph % (Auto) 24.5 (16.0-40.0) % [place] % (Auto) 9.4 (0.0-15.0) % Eos % (Auto) 3.8 (0.0-7.0) % Baso % (Auto) 0.1 (0.0-1.5) % Neut # (Auto) 4.4 (1.4-5.7) K/uL Lymph # (Auto) 1.7 (0.6-2.4) K/uL [place] # (Auto) 0.7 (0.0-0.8) K/uL Eos # (Auto) 0.3 (0.0-0.7) K/uL Baso # (Auto) 0.0 (0.0-0.1) K/uL Nucleated RBC % 0.0 /100WBC Nucleated RBCs # 0 K/uL Sodium (136-148) mmol/L Potassium (3.5-5.1) mmol/L Chloride (98-107) mmol/L Carbon Dioxide (21.0-32.0) mmol/L BUN (7.0-18.0) mg/dL Creatinine (0.8-1.3) mg/dL Est Cr Clr Drug Dosing mL/min Estimated GFR (MDRD) ml/min Glucose (74-106) mg/dL POC Glucose 117 H 125 H (60-110) mg/dL Calcium (8.5-10.1) mg/dL Total Bilirubin (0.2-1.0) mg/dL AST (15-37) IU/L ALT (14-63) IU/L Alkaline Phosphatase (46-116) U/L Total Protein (6.4-8.2) g/dL Albumin (3.4-5.0) g/dL Globulin (2.6-4.0) g/dL Albumin/Globulin Ratio (0.9-1.6) Triglycerides (0-200) mg/dL Cholesterol (50-200) mg/dL LDL Cholesterol, Calc (60-180) mg/dL VLDL Cholesterol (5-55) mg/dL HDL Cholesterol (40-60) mg/dL Cholesterol/HDL Ratio (3.3-6.0) Amylase (25-115) U/L Lipase (73-393) U/L H. pylori IgG Antibody (NEG) 10/29/18 10/29/18 Range/Units 05:49 08:21 WBC (4.0-11.0) K/uL RBC (4.50-5.90) M/uL Hgb (13.0-17.0) g/dL Hct (38.0-50.0) % MCV (80.0-98.0) fL MCH (27.0-32.0) pg MCHC (31.0-37.0) g/dL RDW Std Deviation (28.0-62.0) fl RDW Coeff of Gato (11.0-15.0) % Plt Count (150-400) K/uL MPV (7.40-12.00) fL Neut % (Auto) (48.0-80.0) % Lymph % (Auto) (16.0-40.0) % [place] % (Auto) (0.0-15.0) % Eos % (Auto) (0.0-7.0) % Baso % (Auto) (0.0-1.5) % Neut # (Auto) (1.4-5.7) K/uL Lymph # (Auto) (0.6-2.4) K/uL [place] # (Auto) (0.0-0.8) K/uL Eos # (Auto) (0.0-0.7) K/uL Baso # (Auto) (0.0-0.1) K/uL Nucleated RBC % /100WBC Nucleated RBCs # K/uL Sodium 138 (136-148) mmol/L Potassium 4.4 (3.5-5.1) mmol/L Chloride 104 (98-107) mmol/L Carbon Dioxide 19.8 L (21.0-32.0) mmol/L BUN 9 (7.0-18.0) mg/dL Creatinine 0.9 (0.8-1.3) mg/dL Est Cr Clr Drug Dosing 148.62 mL/min Estimated GFR (MDRD) > 60.0 ml/min Glucose 139 H (74-106) mg/dL POC Glucose 132 H (60-110) mg/dL Calcium 8.8 (8.5-10.1) mg/dL Total Bilirubin 0.6 (0.2-1.0) mg/dL AST 75 H (15-37) IU/L ALT 184 H (14-63) IU/L Alkaline Phosphatase 65 (46-116) U/L Total Protein 7.3 (6.4-8.2) g/dL Albumin 3.5 (3.4-5.0) g/dL Globulin 3.8 (2.6-4.0) g/dL Albumin/Globulin Ratio 0.9 (0.9-1.6) Triglycerides 186 (0-200) mg/dL Cholesterol 150 (50-200) mg/dL LDL Cholesterol, Calc 86 (60-180) mg/dL VLDL Cholesterol 37 (5-55) mg/dL HDL Cholesterol 27 L (40-60) mg/dL Cholesterol/HDL Ratio 5.6 (3.3-6.0) Amylase (25-115) U/L Lipase (73-393) U/L H. pylori IgG Antibody (NEG) Tai Results Last 24 Hours: Microbiology 10/28/18 14:05 Influenza Type A Antigen Screen - Final Nasopharyngeal Swab NEGATIVE INFLUENZA A VIRUS AG Influenza Type B Antigen Screen - Final NEGATIVE INFLUENZA B VIRUS AG Med Orders - Current: Current Medications Enoxaparin Sodium (Lovenox) 40 mg SUBCUT BEDTIME [facility] Last Admin: 10/28/18 20:36 Dose: 40 mg Escitalopram Oxalate (Lexapro) 10 mg PO DAILY [facility] Last Admin: 10/29/18 08:04 Dose: 10 mg Sodium Chloride (Normal Saline) 1,000 mls @ 125 mls/hr IV ASDIRECTED [facility] Last Admin: 10/29/18 03:46 Dose: 125 mls/hr Ibuprofen (Motrin) 600 mg PO Q6H PRN PRN Reason: Pain Insulin Aspart (Novolog) 0 unit SUBCUT Q6H [facility]; Protocol Last Admin: 10/29/18 08:23 Dose: Not Given Lisinopril (Prinivil) 5 mg PO DAILY [facility] Last Admin: 10/29/18 08:07 Dose: 5 mg Morphine Sulfate (Morphine) 2 mg IVPUSH Q2H PRN PRN Reason: Pain (severe 7-10) Stop: 10/29/18 17:35 Ondansetron HCl (Zofran) 4 mg IVPUSH Q4H PRN PRN Reason: Nausea/Vomiting Last Admin: 10/29/18 05:59 Dose: 4 mg Sodium Chloride (Saline Flush) 10 ml FLUSH ASDIRECTED PRN PRN Reason: Keep Vein Open Last Admin: 10/28/18 14:46 Dose: 10 ml Sodium Chloride (Saline Flush) 2.5 ml FLUSH ASDIRECTED PRN PRN Reason: Keep Vein Open Last Admin: 10/28/18 14:46 Dose: 2.5 ml Tramadol HCl (Ultram) 50 mg PO Q6H PRN PRN Reason: Pain Discontinued Medications Acetaminophen (Tylenol) 650 mg PO Q4H PRN PRN Reason: Pain (Mild 1-3)/fever Al Hydroxide/Mg Hydroxide 15 (ml/ Lidocaine HCl 5 ml) 0 ml PO ONETIME ONE Stop: 10/28/18 20:48 Last Admin: 10/28/18 22:24 Dose: 20 each Sodium Chloride (Normal Saline) 1,000 mls @ 999 mls/hr IV STAT ONE Stop: 10/28/18 15:33 Last Admin: 10/28/18 14:46 Dose: 999 mls/hr Potassium Chloride/Dextrose/Sod Cl (D5 1/2 Ns W/ 20 Meq/L Kcl) 1,000 mls @ 150 mls/hr IV ASDIRECTED [facility] Last Admin: 10/28/18 17:32 Dose: 150 mls/hr Insulin Aspart (Novolog) 0 unit SUBCUT ACBREAKFASTANDBED [facility]; Protocol Iopamidol (Isovue Multipack-370 (76%)) 100 ml IVPUSH ONETIME STA Stop: 10/28/18 16:10 Last Admin: 10/28/18 16:09 Dose: 100 ml Morphine Sulfate (Morphine) 4 mg IVPUSH ONETIME ONE Stop: 10/28/18 14:34 Last Admin: 10/28/18 14:46 Dose: 4 mg Morphine Sulfate (Morphine) 2 mg IVPUSH Q2H PRN PRN Reason: Pain (severe 7-10) Stop: 10/29/18 17:35 Last Admin: 10/29/18 08:07 Dose: 2 mg Non-Formulary Medication (Rosuvastatin Calcium [Rosuvastatin Calcium]) 20 mg PO BEDTIME [facility] Last Admin: 10/29/18 09:58 Dose: Not Given Ondansetron HCl (Zofran) 4 mg IVPUSH ONETIME ONE Stop: 10/28/18 14:34 Last Admin: 10/28/18 14:46 Dose: 4 mg Ondansetron HCl (Zofran) 4 mg IVPUSH ONETIME ONE Stop: 10/28/18 16:40 Last Admin: 10/28/18 16:45 Dose: 4 mg Pantoprazole Sodium (Protonix Iv) 80 mg IVPUSH .BOLUS ONE Stop: 10/28/18 14:34 Last Admin: 10/28/18 14:46 Dose: 80 mg - Exam Quality Assessment: No: Supplemental Oxygen General: Alert, Oriented, Cooperative, No Acute Distress HEENT: Pupils Equal, Pupils Reactive, EOMI. No: Mucous Membr. Moist/Kiefer (dry) Neck: Supple, Trachea Midline Lungs: Clear to Auscultation, Normal Respiratory Effort Cardiovascular: Regular Rate, Regular Rhythm, No Murmurs GI/Abdominal Exam: Normal Bowel Sounds, Soft, No Distention, Tender (Epigastrum) (Male) Exam: Deferred Back Exam: Normal Inspection, Full Range of Motion Extremities: Normal Inspection, No Pedal Edema Skin: Warm, Dry, Intact Neurological: No New Focal Deficit Psy/Mental Status: Alert, Normal Affect, Normal Mood - Problem List & Annotations (1) Pancreatitis SNOMED Code(s): 78422512 Code(s): K85.90 - ACUTE PANCREATITIS WITHOUT NECROSIS OR INFECTION, UNSP Status: Acute Priority: High Current Visit: Yes (2) Hypertension SNOMED Code(s): 02890766 Code(s): I10 - ESSENTIAL (PRIMARY) HYPERTENSION Status: Chronic Priority : High Current Visit: Yes Qualifiers: Hypertension type: essential hypertension Qualified Code(s): I10 - Essential (primary) hypertension (3) Morbid obesity with BMI of 45.0-49.9, adult SNOMED Code(s): 624479136 Code(s): E66.01 - MORBID (SEVERE) OBESITY DUE TO EXCESS CALORIES; Z68.42 - BODY MASS INDEX (BMI) 45.0-49.9, ADULT Status: Chronic Priority: High Current Visit: Yes (4) Transaminitis SNOMED Code(s): 734577754, 522998065 Code(s): R74.0 - NONSPEC ELEV OF LEVELS OF TRANSAMNS & LACTIC ACID DEHYDRGNSE Status: Chronic Priority: High Current Visit: Yes (5) Diabetes mellitus, new onset SNOMED Code(s): 181319401, 528429901 Code(s): E11.9 - TYPE 2 DIABETES MELLITUS WITHOUT COMPLICATIONS Status: Chronic Priority: High Current Visit: Yes - Problem List Review Problem List Initiated/Reviewed/Updated: Yes - My Orders Last 24 Hours: My Active Orders 10/28/18 17:33 Oxygen Therapy [RC] PRN Up ad Renate [RC] ASDIRECTED VTE/DVT Education [RC] PER UNIT ROUTINE Vital Signs [RC] Q4H Resuscitation Status Routine 10/28/18 17:35 Blood Glucose Check, Bedside [RC] Q6H Blood Glucose Check, Bedside [RC] QIDACANDBED Oxygen Therapy [RC] PRN Vital Signs [RC] Q4H Ondansetron [Zofran] 4 mg IVPUSH Q4H PRN Glucose Management Sub Q Reflex [OM.PC] Click To Edit 10/28/18 17:37 Diabetes Education [RC] Click to Edit 10/28/18 17:38 Abdomen Ltd [US] Routine 10/28/18 17:45 Sodium Chloride 0.9% [Normal Saline] 1,000 ml IV ASDIRECTED 10/28/18 21:00 Enoxaparin [Lovenox] 40 mg SUBCUT BEDTIME Insulin Aspart [NovoLOG] See Protocol SUBCUT Q6H 10/29/18 08:15 Morphine 2 mg IVPUSH Q2H PRN 10/29/18 09:00 Escitalopram [Lexapro] 10 mg PO DAILY Lisinopril [Prinivil] 5 mg PO DAILY 10/29/18 09:49 LIPASE [CHEM] Routine 10/29/18 09:50 UA W/MICROSCOPIC [URIN] Routine 10/29/18 09:52 Ibuprofen [Motrin] 600 mg PO Q6H PRN 10/29/18 09:53 traMADol [Ultram] 50 mg PO Q6H PRN 10/29/18 Lunch Clear Liquid Diet [DIET] - Plan Plan:: The patient is a 28-year-old gentleman who had been recently diagnosed with type 2 diabetes, hypertension and now has pancreatitis. The patient's lipase was elevated at 2121 units per liter and ceased CT scan showed stranding consistent with pancreatitis. Patient's physical examination is also consistent with acute pancreatitis. He has denied any alcohol use. I've ordered an ultrasound of his abdomen in order to exclude radiolucent gallstones as a cause of the patient's pancreatitis. I've also ordered a fasting lipid panel. The patient will be admitted to acute hospitalization. He'll be kept nothing by mouth. I've ordered fluids of normal saline at 125 mL per hour. The patient will also have IV narcotics for pain control. The patient should be appropriate for discharge as all laboratory testing is been completed, symptoms have improved and he has been able to tolerate diet. Interestingly the patient had been started on Victoza for his diabetes and pancreatitis has been listed as a severe side effect. Once other causes have been ruled out this can be considered as a likely contributor to the patient's pancreatitis. The patient is a 28-year-old gentleman who today is doing better. His pain is better controlled. The patient had a fasting lipid panel which did not show any evidence of hypertriglyceridemia. Ultrasound of his right upper quadrant for radiolucent stones is still pending. I've ordered repeat laboratory studies. The patient will also have a clear liquid diet for now. I'm concerned that the patient may have a side effect that has been noted with the use of Victoza. As a result of this of had the patient discontinue the use of this. He'll be kept on his other antidiabetic medication for the antrum. The patient's diet will be adjusted to include ADA as tolerated possibly today and he'll be kept on sliding scale insulin as necessary to for glycemic control. The patient also has been encouraged to ambulate. We'll continue with pain control for now. The patient should be appropriate for discharge in 1 day.
[2018-10-29] MEDS ORDERED: Alum Hydrox/Mag Hydrox/Simeth 15 ML, Lidocaine 2% 5 ML PO ONE ×2 (13:52)
[2018-10-29] MEDS: Morphine 2 MG/ML Syringe IVPUSH PRN ×2 (18:59→23:36)
[2018-10-29] MEDS: Pantoprazole 40 MG Tab.CR PO SCH (21:13)
[2018-10-29] MEDS: Enoxaparin 40 MG/0.4 ML Syringe SUBCUT SCH (21:14)
[2018-10-30] MEDS: Sodium Chloride 0.9% 1,000 ML IV SCH ×4 (02:01→20:13)
[2018-10-30] MEDS: Insulin Aspart 100 Units/ML 3 ML Pen SUBCUT SCH ×5 (03:55→20:41)
[2018-10-30 06:33] LABS: CHLORIDE,CL 104 mmol/L (98-107); SODIUM,NA 138 mmol/L (136-148)
[2018-10-30] MEDS: Pantoprazole 40 MG Tab.CR PO SCH (07:28)
[2018-10-30] MEDS: Morphine 2 MG/ML Syringe IVPUSH PRN ×3 (07:33→21:14)
[2018-10-30] MEDS: Lisinopril 5 MG Tab PO SCH (08:40)
[2018-10-30] MEDS: Escitalopram 10 MG Tab PO SCH (08:40)
[2018-10-30] MEDS ORDERED: Pantoprazole 40 MG Vial IVPUSH SCH (09:00)
[2018-10-30] MEDS ORDERED: Testosterone Cypionate 200 MG/ML MDV IM SCH (10:00)
--- NOTE | 2018-10-30 11:14 | PCM.PN ---
<José Streeter - Last Filed: 10/30/18 11:19> - General Info Date of Service: 10/30/18 Subjective Update: No acute events overnight. Afebrile. Pain under control overnight. He did have worsening pain during abdominal U/S. No chest pain, dyspnea. No vomiting. Currently, NPO. - Patient Data Vitals - Most Recent: Last Vital Signs Temp 36.2 C 10/30/18 08:00 Pulse 101 H 10/30/18 08:00 Resp 17 10/30/18 08:00 BP 153/69 H 10/30/18 08:40 Pulse Ox 94 L 10/30/18 08:00 Weight - Most Recent: 176.493 kg I&O - Last 24 Hours: Intake & Output 10/29/18 10/30/18 10/30/18 22:59 06:59 14:59 Intake Total 1655 500 Output Total 1575 Balance 80 500 Lab Results Last 24 Hours: Laboratory Results - last 24 hr 10/29/18 10/29/18 10/29/18 Range/Units 12:40 15:40 16:06 WBC (4.0-11.0) K/uL RBC (4.50-5.90) M/uL Hgb (13.0-17.0) g/dL Hct (38.0-50.0) % MCV (80.0-98.0) fL MCH (27.0-32.0) pg MCHC (31.0-37.0) g/dL RDW Std Deviation (28.0-62.0) fl RDW Coeff of [place]ato (11.0-15.0) % Plt Count (150-400) K/uL MPV (7.40-12.00) fL Neut % (Auto) (48.0-80.0) % Lymph % (Auto) (16.0-40.0) % [place] % (Auto) (0.0-15.0) % Eos % (Auto) (0.0-7.0) % Baso % (Auto) (0.0-1.5) % Neut # (Auto) (1.4-5.7) K/uL Lymph # (Auto) (0.6-2.4) K/uL [place] # (Auto) (0.0-0.8) K/uL Eos # (Auto) (0.0-0.7) K/uL Baso # (Auto) (0.0-0.1) K/uL Nucleated RBC % /100WBC Nucleated RBCs # K/uL Sodium (136-148) mmol/L Potassium (3.5-5.1) mmol/L Chloride (98-107) mmol/L Carbon Dioxide (21.0-32.0) mmol/L BUN (7.0-18.0) mg/dL Creatinine (0.8-1.3) mg/dL Est Cr Clr Drug Dosing mL/min Estimated GFR (MDRD) ml/min Glucose (74-106) mg/dL POC Glucose 134 H 122 H (60-110) mg/dL Calcium (8.5-10.1) mg/dL Total Bilirubin (0.2-1.0) mg/dL AST (15-37) IU/L ALT (14-63) IU/L Alkaline Phosphatase (46-116) U/L Total Protein (6.4-8.2) g/dL Albumin (3.4-5.0) g/dL Globulin (2.6-4.0) g/dL Albumin/Globulin Ratio (0.9-1.6) Lipase (73-393) U/L Urine Color YELLOW Urine Appearance SLT CLOUDY Urine pH 6.0 (5.0-8.0) Ur Specific [place] >= 1.030 (1.001-1.035) Urine Protein TRACE H (NEGATIVE) mg/dL Urine Glucose (UA) NEGATIVE (NEGATIVE) mg/dL Urine Ketones >=80 (NEGATIVE) mg/dL Urine Occult Blood NEGATIVE (NEGATIVE) Urine Nitrite NEGATIVE (NEGATIVE) Urine Bilirubin MODERATE H (NEGATIVE) Urine Urobilinogen 1.0 (<2.0) EU/dL Ur Leukocyte Esterase NEGATIVE (NEGATIVE) Urine RBC 0-2 (0-2/HPF) Urine WBC 1-3 (0-5/HPF) Ur Epithelial Cells OCCASIONAL (NONE-FEW) Urine Bacteria FEW (NEGATIVE) Waxy Casts 1-2 (NEGATIVE) 10/29/18 10/30/18 10/30/18 Range/Units 21:15 03:52 05:26 WBC 6.67 (4.0-11.0) K/uL RBC 5.21 (4.50-5.90) M/uL Hgb 14.6 (13.0-17.0) g/dL Hct 42.5 (38.0-50.0) % MCV 81.6 (80.0-98.0) fL MCH 28.0 (27.0-32.0) pg MCHC 34.4 (31.0-37.0) g/dL RDW Std Deviation 40.5 (28.0-62.0) fl RDW Coeff of [place] 14 (11.0-15.0) % Plt Count 205 (150-400) K/uL MPV 9.60 (7.40-12.00) fL Neut % (Auto) 57.0 (48.0-80.0) % Lymph % (Auto) 27.0 (16.0-40.0) % [place] % (Auto) 10.5 (0.0-15.0) % Eos % (Auto) 5.2 (0.0-7.0) % Baso % (Auto) 0.3 (0.0-1.5) % Neut # (Auto) 3.8 (1.4-5.7) K/uL Lymph # (Auto) 1.8 (0.6-2.4) K/uL [place] # (Auto) 0.7 (0.0-0.8) K/uL Eos # (Auto) 0.4 (0.0-0.7) K/uL Baso # (Auto) 0.0 (0.0-0.1) K/uL Nucleated RBC % 0.0 /100WBC Nucleated RBCs # 0 K/uL Sodium (136-148) mmol/L Potassium (3.5-5.1) mmol/L Chloride (98-107) mmol/L Carbon Dioxide (21.0-32.0) mmol/L BUN (7.0-18.0) mg/dL Creatinine (0.8-1.3) mg/dL Est Cr Clr Drug Dosing mL/min Estimated GFR (MDRD) ml/min Glucose (74-106) mg/dL POC Glucose 129 H 113 H (60-110) mg/dL Calcium (8.5-10.1) mg/dL Total Bilirubin (0.2-1.0) mg/dL AST (15-37) IU/L ALT (14-63) IU/L Alkaline Phosphatase (46-116) U/L Total Protein (6.4-8.2) g/dL Albumin (3.4-5.0) g/dL Globulin (2.6-4.0) g/dL Albumin/Globulin Ratio (0.9-1.6) Lipase (73-393) U/L Urine Color Urine Appearance Urine pH (5.0-8.0) Ur Specific [place] (1.001-1.035) Urine Protein (NEGATIVE) mg/dL Urine Glucose (UA) (NEGATIVE) mg/dL Urine Ketones (NEGATIVE) mg/dL Urine Occult Blood (NEGATIVE) Urine Nitrite (NEGATIVE) Urine Bilirubin (NEGATIVE) Urine Urobilinogen (<2.0) EU/dL Ur Leukocyte Esterase (NEGATIVE) Urine RBC (0-2/HPF) Urine WBC (0-5/HPF) Ur Epithelial Cells (NONE-FEW) Urine Bacteria (NEGATIVE) Waxy Casts (NEGATIVE) 10/30/18 Range/Units 05:26 WBC (4.0-11.0) K/uL RBC (4.50-5.90) M/uL Hgb (13.0-17.0) g/dL Hct (38.0-50.0) % MCV (80.0-98.0) fL MCH (27.0-32.0) pg MCHC (31.0-37.0) g/dL RDW Std Deviation (28.0-62.0) fl RDW Coeff of [place] (11.0-15.0) % Plt Count (150-400) K/uL MPV (7.40-12.00) fL Neut % (Auto) (48.0-80.0) % Lymph % (Auto) (16.0-40.0) % [place] % (Auto) (0.0-15.0) % Eos % (Auto) (0.0-7.0) % Baso % (Auto) (0.0-1.5) % Neut # (Auto) (1.4-5.7) K/uL Lymph # (Auto) (0.6-2.4) K/uL [place] # (Auto) (0.0-0.8) K/uL Eos # (Auto) (0.0-0.7) K/uL Baso # (Auto) (0.0-0.1) K/uL Nucleated RBC % /100WBC Nucleated RBCs # K/uL Sodium 138 (136-148) mmol/L Potassium 4.4 (3.5-5.1) mmol/L Chloride 104 (98-107) mmol/L Carbon Dioxide 19.8 L (21.0-32.0) mmol/L BUN 4 L (7.0-18.0) mg/dL Creatinine 0.7 L (0.8-1.3) mg/dL Est Cr Clr Drug Dosing 191.09 mL/min Estimated GFR (MDRD) > 60.0 ml/min Glucose 134 H (74-106) mg/dL POC Glucose (60-110) mg/dL Calcium 8.7 (8.5-10.1) mg/dL Total Bilirubin 0.6 (0.2-1.0) mg/dL AST 56 H (15-37) IU/L ALT 175 H (14-63) IU/L Alkaline Phosphatase 64 (46-116) U/L Total Protein 7.2 (6.4-8.2) g/dL Albumin 3.3 L (3.4-5.0) g/dL Globulin 3.9 (2.6-4.0) g/dL Albumin/Globulin Ratio 0.9 (0.9-1.6) Lipase 3068 H (73-393) U/L Urine Color Urine Appearance Urine pH (5.0-8.0) Ur Specific [place] (1.001-1.035) Urine Protein (NEGATIVE) mg/dL Urine Glucose (UA) (NEGATIVE) mg/dL Urine Ketones (NEGATIVE) mg/dL Urine Occult Blood (NEGATIVE) Urine Nitrite (NEGATIVE) Urine Bilirubin (NEGATIVE) Urine Urobilinogen (<2.0) EU/dL Ur Leukocyte Esterase (NEGATIVE) Urine RBC (0-2/HPF) Urine WBC (0-5/HPF) Ur Epithelial Cells (NONE-FEW) Urine Bacteria (NEGATIVE) Waxy Casts (NEGATIVE) Med Orders - Current: Current Medications Enoxaparin Sodium (Lovenox) 40 mg SUBCUT BEDTIME [facility] Last Admin: 10/29/18 21:14 Dose: 40 mg Escitalopram Oxalate (Lexapro) 10 mg PO DAILY [facility] Last Admin: 10/30/18 08:40 Dose: 10 mg Sodium Chloride (Normal Saline) 1,000 mls @ 200 mls/hr IV ASDIRECTED [facility] Last Admin: 10/30/18 09:23 Dose: 200 mls/hr Ibuprofen (Motrin) 600 mg PO Q6H PRN PRN Reason: Pain Insulin Aspart (Novolog) 0 unit SUBCUT Q6H [facility]; Protocol Last Admin: 10/30/18 10:00 Dose: Not Given Lisinopril (Prinivil) 5 mg PO DAILY [facility] Last Admin: 10/30/18 08:40 Dose: 5 mg Morphine Sulfate (Morphine) 2 mg IVPUSH Q4H PRN PRN Reason: Pain Last Admin: 10/30/18 07:33 Dose: 2 mg Ondansetron HCl (Zofran) 4 mg IVPUSH Q4H PRN PRN Reason: Nausea/Vomiting Last Admin: 10/29/18 23:33 Dose: 4 mg Pantoprazole Sodium (Protonix) 40 mg PO ACBREAKFAST [facility] Last Admin: 10/30/18 07:28 Dose: 40 mg Pantoprazole Sodium (Protonix Iv) 40 mg IVPUSH DAILY [facility] Last Admin: 10/30/18 09:42 Dose: 40 mg Sodium Chloride (Saline Flush) 10 ml FLUSH ASDIRECTED PRN PRN Reason: Keep Vein Open Last Admin: 10/28/18 14:46 Dose: 10 ml Sodium Chloride (Saline Flush) 2.5 ml FLUSH ASDIRECTED PRN PRN Reason: Keep Vein Open Last Admin: 10/28/18 14:46 Dose: 2.5 ml Testosterone Cypionate (Depo-Testosterone) 100 mg IM Q7D [facility] Last Admin: 10/30/18 10:54 Dose: 100 mg Tramadol HCl (Ultram) 50 mg PO Q6H PRN PRN Reason: Pain Last Admin: 10/29/18 12:37 Dose: 50 mg Discontinued Medications Acetaminophen (Tylenol) 650 mg PO Q4H PRN PRN Reason: Pain (Mild 1-3)/fever Al Hydroxide/Mg Hydroxide 15 (ml/ Lidocaine HCl 5 ml) 0 ml PO ONETIME ONE Stop: 10/28/18 20:48 Last Admin: 10/28/18 22:24 Dose: 20 each Al Hydroxide/Mg Hydroxide 15 (ml/ Lidocaine HCl 5 ml) 0 ml PO ONETIME ONE Stop: 10/29/18 13:53 Last Admin: 10/29/18 14:07 Dose: 1 each Sodium Chloride (Normal Saline) 1,000 mls @ 999 mls/hr IV STAT ONE Stop: 10/28/18 15:33 Last Admin: 10/28/18 14:46 Dose: 999 mls/hr Potassium Chloride/Dextrose/Sod Cl (D5 1/2 Ns W/ 20 Meq/L Kcl) 1,000 mls @ 150 mls/hr IV ASDIRECTED [facility] Last Admin: 10/28/18 17:32 Dose: 150 mls/hr Insulin Aspart (Novolog) 0 unit SUBCUT ACBREAKFASTANDBED [facility]; Protocol Iopamidol (Isovue Multipack-370 (76%)) 100 ml IVPUSH ONETIME STA Stop: 10/28/18 16:10 Last Admin: 10/28/18 16:09 Dose: 100 ml Morphine Sulfate (Morphine) 4 mg IVPUSH ONETIME ONE Stop: 10/28/18 14:34 Last Admin: 10/28/18 14:46 Dose: 4 mg Morphine Sulfate (Morphine) 2 mg IVPUSH Q2H PRN PRN Reason: Pain (severe 7-10) Stop: 10/29/18 17:35 Last Admin: 10/29/18 08:07 Dose: 2 mg Morphine Sulfate (Morphine) 2 mg IVPUSH Q2H PRN PRN Reason: Pain (severe 7-10) Stop: 10/29/18 17:35 Last Admin: 10/29/18 11:33 Dose: 2 mg Non-Formulary Medication (Rosuvastatin Calcium [Rosuvastatin Calcium]) 20 mg PO BEDTIME [facility] Last Admin: 10/29/18 09:58 Dose: Not Given Ondansetron HCl (Zofran) 4 mg IVPUSH ONETIME ONE Stop: 10/28/18 14:34 Last Admin: 10/28/18 14:46 Dose: 4 mg Ondansetron HCl (Zofran) 4 mg IVPUSH ONETIME ONE Stop: 10/28/18 16:40 Last Admin: 10/28/18 16:45 Dose: 4 mg Pantoprazole Sodium (Protonix Iv) 80 mg IVPUSH .BOLUS ONE Stop: 10/28/18 14:34 Last Admin: 10/28/18 14:46 Dose: 80 mg - Exam General: Alert, Oriented, Cooperative, No Acute Distress Lungs: Clear to Auscultation, Normal Respiratory Effort. No: Crackles, Wheezing Cardiovascular: Regular Rate, Regular Rhythm GI/Abdominal Exam: Soft, Other (tender in epigastric area.) Extremities: No Pedal Edema - Problem List Review Problem List Initiated/Reviewed/Updated: Yes - My Orders Last 24 Hours: My Active Orders 10/29/18 18:39 Morphine 2 mg IVPUSH Q4H PRN 10/30/18 09:00 Pantoprazole [ProTONIX IV] 40 mg IVPUSH DAILY 10/30/18 10:00 Testosterone Cypionate [Depo-Testosterone] 100 mg IM Q7D - Plan Plan:: A: 1. Acute pancreatitis 2. Diabetes mellitus type 2 3. Hypertension 4. Obesity P: 1. Acute pancreatitis. Lipase increasing. Continue NPO. Increased IV fluids to 200 ml/hr. Continue pain management. If not improving in 1-2 days, may consider re-ordering another CT to reassess the pancreas. 2. Diabetes mellitus, type 2. NPO for now. Continue ISS. 3. Hypertension. Increased lisinopril to 10 mg PO daily. Dispo: 2-3 days <Gonsalo Mayes - Last Filed: 10/30/18 11:28> - General Info Admission Dx/Problem (Free Text): I have seen and examined the patient independently of certified medical biller. I have discuss the case with him. I agree with the assessment and plan of care as outlined by him. Please see orders. - Patient Data Vitals - Most Recent: Last Vital Signs Temp 36.2 C 10/30/18 08:00 Pulse 101 H 10/30/18 08:00 Resp 17 10/30/18 08:00 BP 153/69 H 10/30/18 08:40 Pulse Ox 94 L 10/30/18 08:00 I&O - Last 24 Hours: Intake & Output 10/29/18 10/30/18 10/30/18 22:59 06:59 14:59 Intake Total 1655 500 Output Total 1575 Balance 80 500 Lab Results Last 24 Hours: Laboratory Results - last 24 hr 10/29/18 10/29/18 10/29/18 Range/Units 12:40 15:40 16:06 WBC (4.0-11.0) K/uL RBC (4.50-5.90) M/uL Hgb (13.0-17.0) g/dL Hct (38.0-50.0) % MCV (80.0-98.0) fL MCH (27.0-32.0) pg MCHC (31.0-37.0) g/dL RDW Std Deviation (28.0-62.0) fl RDW Coeff of [place] (11.0-15.0) % Plt Count (150-400) K/uL MPV (7.40-12.00) fL Neut % (Auto) (48.0-80.0) % Lymph % (Auto) (16.0-40.0) % [place] % (Auto) (0.0-15.0) % Eos % (Auto) (0.0-7.0) % Baso % (Auto) (0.0-1.5) % Neut # (Auto) (1.4-5.7) K/uL Lymph # (Auto) (0.6-2.4) K/uL [place] # (Auto) (0.0-0.8) K/uL Eos # (Auto) (0.0-0.7) K/uL Baso # (Auto) (0.0-0.1) K/uL Nucleated RBC % /100WBC Nucleated RBCs # K/uL Sodium (136-148) mmol/L Potassium (3.5-5.1) mmol/L Chloride (98-107) mmol/L Carbon Dioxide (21.0-32.0) mmol/L BUN (7.0-18.0) mg/dL Creatinine (0.8-1.3) mg/dL Est Cr Clr Drug Dosing mL/min Estimated GFR (MDRD) ml/min Glucose (74-106) mg/dL POC Glucose 134 H 122 H (60-110) mg/dL Calcium (8.5-10.1) mg/dL Total Bilirubin (0.2-1.0) mg/dL AST (15-37) IU/L ALT (14-63) IU/L Alkaline Phosphatase (46-116) U/L Total Protein (6.4-8.2) g/dL Albumin (3.4-5.0) g/dL Globulin (2.6-4.0) g/dL Albumin/Globulin Ratio (0.9-1.6) Lipase (73-393) U/L Urine Color YELLOW Urine Appearance SLT CLOUDY Urine pH 6.0 (5.0-8.0) Ur Specific [place] >= 1.030 (1.001-1.035) Urine Protein TRACE H (NEGATIVE) mg/dL Urine Glucose (UA) NEGATIVE (NEGATIVE) mg/dL Urine Ketones >=80 (NEGATIVE) mg/dL Urine Occult Blood NEGATIVE (NEGATIVE) Urine Nitrite NEGATIVE (NEGATIVE) Urine Bilirubin MODERATE H (NEGATIVE) Urine Urobilinogen 1.0 (<2.0) EU/dL Ur Leukocyte Esterase NEGATIVE (NEGATIVE) Urine RBC 0-2 (0-2/HPF) Urine WBC 1-3 (0-5/HPF) Ur Epithelial Cells OCCASIONAL (NONE-FEW) Urine Bacteria FEW (NEGATIVE) Waxy Casts 1-2 (NEGATIVE) 10/29/18 10/30/18 10/30/18 Range/Units 21:15 03:52 05:26 WBC 6.67 (4.0-11.0) K/uL RBC 5.21 (4.50-5.90) M/uL Hgb 14.6 (13.0-17.0) g/dL Hct 42.5 (38.0-50.0) % MCV 81.6 (80.0-98.0) fL MCH 28.0 (27.0-32.0) pg MCHC 34.4 (31.0-37.0) g/dL RDW Std Deviation 40.5 (28.0-62.0) fl RDW Coeff of [place] 14 (11.0-15.0) % Plt Count 205 (150-400) K/uL MPV 9.60 (7.40-12.00) fL Neut % (Auto) 57.0 (48.0-80.0) % Lymph % (Auto) 27.0 (16.0-40.0) % [place] % (Auto) 10.5 (0.0-15.0) % Eos % (Auto) 5.2 (0.0-7.0) % Baso % (Auto) 0.3 (0.0-1.5) % Neut # (Auto) 3.8 (1.4-5.7) K/uL Lymph # (Auto) 1.8 (0.6-2.4) K/uL [place] # (Auto) 0.7 (0.0-0.8) K/uL Eos # (Auto) 0.4 (0.0-0.7) K/uL Baso # (Auto) 0.0 (0.0-0.1) K/uL Nucleated RBC % 0.0 /100WBC Nucleated RBCs # 0 K/uL Sodium (136-148) mmol/L Potassium (3.5-5.1) mmol/L Chloride (98-107) mmol/L Carbon Dioxide (21.0-32.0) mmol/L BUN (7.0-18.0) mg/dL Creatinine (0.8-1.3) mg/dL Est Cr Clr Drug Dosing mL/min Estimated GFR (MDRD) ml/min Glucose (74-106) mg/dL POC Glucose 129 H 113 H (60-110) mg/dL Calcium (8.5-10.1) mg/dL Total Bilirubin (0.2-1.0) mg/dL AST (15-37) IU/L ALT (14-63) IU/L Alkaline Phosphatase (46-116) U/L Total Protein (6.4-8.2) g/dL Albumin (3.4-5.0) g/dL Globulin (2.6-4.0) g/dL Albumin/Globulin Ratio (0.9-1.6) Lipase (73-393) U/L Urine Color Urine Appearance Urine pH (5.0-8.0) Ur Specific [place] (1.001-1.035) Urine Protein (NEGATIVE) mg/dL Urine Glucose (UA) (NEGATIVE) mg/dL Urine Ketones (NEGATIVE) mg/dL Urine Occult Blood (NEGATIVE) Urine Nitrite (NEGATIVE) Urine Bilirubin (NEGATIVE) Urine Urobilinogen (<2.0) EU/dL Ur Leukocyte Esterase (NEGATIVE) Urine RBC (0-2/HPF) Urine WBC (0-5/HPF) Ur Epithelial Cells (NONE-FEW) Urine Bacteria (NEGATIVE) Waxy Casts (NEGATIVE) 10/30/18 Range/Units 05:26 WBC (4.0-11.0) K/uL RBC (4.50-5.90) M/uL Hgb (13.0-17.0) g/dL Hct (38.0-50.0) % MCV (80.0-98.0) fL MCH (27.0-32.0) pg MCHC (31.0-37.0) g/dL RDW Std Deviation (28.0-62.0) fl RDW Coeff of [place] (11.0-15.0) % Plt Count (150-400) K/uL MPV (7.40-12.00) fL Neut % (Auto) (48.0-80.0) % Lymph % (Auto) (16.0-40.0) % [place] % (Auto) (0.0-15.0) % Eos % (Auto) (0.0-7.0) % Baso % (Auto) (0.0-1.5) % Neut # (Auto) (1.4-5.7) K/uL Lymph # (Auto) (0.6-2.4) K/uL [place] # (Auto) (0.0-0.8) K/uL Eos # (Auto) (0.0-0.7) K/uL Baso # (Auto) (0.0-0.1) K/uL Nucleated RBC % /100WBC Nucleated RBCs # K/uL Sodium 138 (136-148) mmol/L Potassium 4.4 (3.5-5.1) mmol/L Chloride 104 (98-107) mmol/L Carbon Dioxide 19.8 L (21.0-32.0) mmol/L BUN 4 L (7.0-18.0) mg/dL Creatinine 0.7 L (0.8-1.3) mg/dL Est Cr Clr Drug Dosing 191.09 mL/min Estimated GFR (MDRD) > 60.0 ml/min Glucose 134 H (74-106) mg/dL POC Glucose (60-110) mg/dL Calcium 8.7 (8.5-10.1) mg/dL Total Bilirubin 0.6 (0.2-1.0) mg/dL AST 56 H (15-37) IU/L ALT 175 H (14-63) IU/L Alkaline Phosphatase 64 (46-116) U/L Total Protein 7.2 (6.4-8.2) g/dL Albumin 3.3 L (3.4-5.0) g/dL Globulin 3.9 (2.6-4.0) g/dL Albumin/Globulin Ratio 0.9 (0.9-1.6) Lipase 3068 H (73-393) U/L Urine Color Urine Appearance Urine pH (5.0-8.0) Ur Specific [place] (1.001-1.035) Urine Protein (NEGATIVE) mg/dL Urine Glucose (UA) (NEGATIVE) mg/dL Urine Ketones (NEGATIVE) mg/dL Urine Occult Blood (NEGATIVE) Urine Nitrite (NEGATIVE) Urine Bilirubin (NEGATIVE) Urine Urobilinogen (<2.0) EU/dL Ur Leukocyte Esterase (NEGATIVE) Urine RBC (0-2/HPF) Urine WBC (0-5/HPF) Ur Epithelial Cells (NONE-FEW) Urine Bacteria (NEGATIVE) Waxy Casts (NEGATIVE) Med Orders - Current: Current Medications Enoxaparin Sodium (Lovenox) 40 mg SUBCUT BEDTIME [facility] Last Admin: 10/29/18 21:14 Dose: 40 mg Escitalopram Oxalate (Lexapro) 10 mg PO DAILY [facility] Last Admin: 10/30/18 08:40 Dose: 10 mg Sodium Chloride (Normal Saline) 1,000 mls @ 200 mls/hr IV ASDIRECTED [facility] Last Admin: 10/30/18 09:23 Dose: 200 mls/hr Ibuprofen (Motrin) 600 mg PO Q6H PRN PRN Reason: Pain Insulin Aspart (Novolog) 0 unit SUBCUT Q6H [facility]; Protocol Last Admin: 10/30/18 10:00 Dose: Not Given Lisinopril (Prinivil) 10 mg PO DAILY [facility] Morphine Sulfate (Morphine) 2 mg IVPUSH Q4H PRN PRN Reason: Pain Last Admin: 10/30/18 07:33 Dose: 2 mg Ondansetron HCl (Zofran) 4 mg IVPUSH Q4H PRN PRN Reason: Nausea/Vomiting Last Admin: 10/29/18 23:33 Dose: 4 mg Pantoprazole Sodium (Protonix) 40 mg PO ACBREAKFAST [facility] Last Admin: 10/30/18 07:28 Dose: 40 mg Pantoprazole Sodium (Protonix Iv) 40 mg IVPUSH DAILY [facility] Last Admin: 10/30/18 09:42 Dose: 40 mg Sodium Chloride (Saline Flush) 10 ml FLUSH ASDIRECTED PRN PRN Reason: Keep Vein Open Last Admin: 10/28/18 14:46 Dose: 10 ml Sodium Chloride (Saline Flush) 2.5 ml FLUSH ASDIRECTED PRN PRN Reason: Keep Vein Open Last Admin: 10/28/18 14:46 Dose: 2.5 ml Testosterone Cypionate (Depo-Testosterone) 100 mg IM Q7D [facility] Last Admin: 10/30/18 10:54 Dose: 100 mg Tramadol HCl (Ultram) 50 mg PO Q6H PRN PRN Reason: Pain Last Admin: 10/29/18 12:37 Dose: 50 mg Discontinued Medications Acetaminophen (Tylenol) 650 mg PO Q4H PRN PRN Reason: Pain (Mild 1-3)/fever Al Hydroxide/Mg Hydroxide 15 (ml/ Lidocaine HCl 5 ml) 0 ml PO ONETIME ONE Stop: 10/28/18 20:48 Last Admin: 10/28/18 22:24 Dose: 20 each Al Hydroxide/Mg Hydroxide 15 (ml/ Lidocaine HCl 5 ml) 0 ml PO ONETIME ONE Stop: 10/29/18 13:53 Last Admin: 10/29/18 14:07 Dose: 1 each Sodium Chloride (Normal Saline) 1,000 mls @ 999 mls/hr IV STAT ONE Stop: 10/28/18 15:33 Last Admin: 10/28/18 14:46 Dose: 999 mls/hr Potassium Chloride/Dextrose/Sod Cl (D5 1/2 Ns W/ 20 Meq/L Kcl) 1,000 mls @ 150 mls/hr IV ASDIRECTED [facility] Last Admin: 10/28/18 17:32 Dose: 150 mls/hr Insulin Aspart (Novolog) 0 unit SUBCUT ACBREAKFASTANDBED [facility]; Protocol Iopamidol (Isovue Multipack-370 (76%)) 100 ml IVPUSH ONETIME STA Stop: 10/28/18 16:10 Last Admin: 10/28/18 16:09 Dose: 100 ml Lisinopril (Prinivil) 5 mg PO DAILY [facility] Last Admin: 10/30/18 08:40 Dose: 5 mg Morphine Sulfate (Morphine) 4 mg IVPUSH ONETIME ONE Stop: 10/28/18 14:34 Last Admin: 10/28/18 14:46 Dose: 4 mg Morphine Sulfate (Morphine) 2 mg IVPUSH Q2H PRN PRN Reason: Pain (severe 7-10) Stop: 10/29/18 17:35 Last Admin: 10/29/18 08:07 Dose: 2 mg Morphine Sulfate (Morphine) 2 mg IVPUSH Q2H PRN PRN Reason: Pain (severe 7-10) Stop: 10/29/18 17:35 Last Admin: 10/29/18 11:33 Dose: 2 mg Non-Formulary Medication (Rosuvastatin Calcium [Rosuvastatin Calcium]) 20 mg PO BEDTIME ION Last Admin: 10/29/18 09:58 Dose: Not Given Ondansetron HCl (Zofran) 4 mg IVPUSH ONETIME ONE Stop: 10/28/18 14:34 Last Admin: 10/28/18 14:46 Dose: 4 mg Ondansetron HCl (Zofran) 4 mg IVPUSH ONETIME ONE Stop: 10/28/18 16:40 Last Admin: 10/28/18 16:45 Dose: 4 mg Pantoprazole Sodium (Protonix Iv) 80 mg IVPUSH .BOLUS ONE Stop: 10/28/18 14:34 Last Admin: 10/28/18 14:46 Dose: 80 mg - Problem List & Annotations (1) Pancreatitis SNOMED Code(s): 21752037 Code(s): K85.90 - ACUTE PANCREATITIS WITHOUT NECROSIS OR INFECTION, UNSP Status: Acute Priority: High Current Visit: Yes (2) Hypertension SNOMED Code(s): 06504509 Code(s): I10 - ESSENTIAL (PRIMARY) HYPERTENSION Status: Chronic Priority : High Current Visit: Yes Qualifiers: Hypertension type: essential hypertension Qualified Code(s): I10 - Essential (primary) hypertension (3) Morbid obesity with BMI of 45.0-49.9, adult SNOMED Code(s): 940622566 Code(s): E66.01 - MORBID (SEVERE) OBESITY DUE TO EXCESS CALORIES; Z68.42 - BODY MASS INDEX (BMI) 45.0-49.9, ADULT Status: Chronic Priority: High Current Visit: Yes (4) Transaminitis SNOMED Code(s): 468766334, 103114897 Code(s): R74.0 - NONSPEC ELEV OF LEVELS OF TRANSAMNS & LACTIC ACID DEHYDRGNSE Status: Chronic Priority: High Current Visit: Yes (5) Diabetes mellitus, new onset SNOMED Code(s): 243798485, 852265179 Code(s): E11.9 - TYPE 2 DIABETES MELLITUS WITHOUT COMPLICATIONS Status: Chronic Priority: High Current Visit: Yes - My Orders Last 24 Hours: My Active Orders 10/29/18 21:00 Pantoprazole [ProTONIX] 40 mg PO ACBREAKFAST 10/29/18 Dinner NPO [Nothing Per Oral Diet] [DIET] 10/30/18 06:52 Admission Status [Patient Status] [ADT] Routine
[2018-10-30] MEDS: Ondansetron 4 MG/2 ML SDV IVPUSH PRN (12:08)
--- NOTE | 2018-10-30 14:04 | CT ---
EXAM DATE: 10/30/18 PATIENT'S AGE: 28 Patient: PER [facility] Facility: [place], [place] Site . Site : 1990 Study: CT Abdomen/Pelvis [facility] [place] [id number]/5/2019 4:13:39 PM Ordering Physician: Ivy Peace Final Report: INDICATION: Epigastric abdominal pain over last couple days with nausea. Vomiting. Diaphoresis and chills. TECHNIQUE: Multiple axial images were obtained from the diaphragm to the symphysis pubis after administration 100 mL of Isovue-370 intravenously. Sagittal and coronal re -formatted images were obtained. COMPARISON: None. FINDINGS: There is a 0.2 cm pulmonary nodule in the right lower lobe on image #26 of series 201. The visualized lung bases otherwise are clear. The liver is of diffuse decreased attenuation consistent with fatty infiltration of the liver. The spleen measures 17.6 cm in greatest length. There is inflammation seen in the left upper abdomen along the body/tail of pancreas. There is a small amount of fluid adjacent to the tail of pancreas an the left pericolic gutter. There is also inflammation seen adjacent to the head of the pancreas with a trace amount of fluid in the right pararenal space. There is fluid seen in the root of small wall mesentery. There is fluid and stranding of fat inferior to the body of the stomach. The gallbladder and adrenal glands are unremarkable. There is no mass or hydronephrosis seen in the kidneys. There is no evidence of a bowel obstruction. There is no free fluid seen in the pelvis. The abdominal aorta is normal in caliber. There are non pathologic enlarged lymph nodes in retroperitoneal space. IMPRESSION: 1. Mild inflammation around the body and tail there is well as the head of pancreas. Trace amount of fluid fascia adjacent tail of pancreas and in the left pericolic gutter, right pararenal space and in the root of small bowel mesentery. Stranding of the fat and fluid inferior to the body of the stomach. This could be secondary to a pancreatitis. Recommend correlation with the patient`s lipase level. 2. Fatty infiltration of the liver. 3. Enlarged spleen measuring 17.6 cm in greatest length. Dictated by Mauro Erwin MD @ 10/28/2018 4:55:57 PM Please note that all CT scans at this facility use dose modulation, iterative reconstruction, and/or weight-based dosing when appropriate to reduce radiation dose to as low as reasonably achievable. Dictated by: Mauro Erwin MD @ 10/28/2018 16:56:12 (Electronic Signature) Report Signed by Proxy. [facility]
--- NOTE | 2018-10-30 17:56 | US ---
EXAM DATE: 10/30/18 PATIENT'S AGE: 28 Patient: PER CAMPBELL Facility: [place], [place] Site . Site : 1990 Study: US Abdomen [id number]/6/2019 12:26:14 PM Ordering Physician: Sugey Brush Final Report: INDICATION: Pancreatitis. TECHNIQUE: Abdominal limited ultrasound. COMPARISON: CT 10/28/2018. FINDINGS: The liver is prominent in craniocaudad dimension measuring nearly 23 cm. Moderately prominent diffuse increased echogenicity of the liver correlating with the moderately prominent fatty infiltration of the liver seen on recent CT. Exam is compromised by patient body habitus. The pancreas is not well visualized. Gallbladder is moderately distended. Gallbladder wall normal in thickness. No gallstones. Positive sonographic Recio`s sign was noted by the assistant auto center manager. If clinically desired HIDA scan could further evaluate for acalculous cholecystitis. Common bile duct measured up to 6.6 mm which is upper limits of normal. Right kidney measures 13.0 cm and is not well visualized but is negative for hydronephrosis. Remainder negative. IMPRESSION: 1. No gallstones. Gallbladder wall normal in thickness. Positive sonographic Recio`s sign was noted by the assistant auto center manager. If there is concern for acalculous cholecystitis, consider HIDA scan. 2. Common bile duct upper limits of normal. 3. Pancreas was not well visualized due to overlying bowel gas and body habitus. 4. Moderate diffuse fatty infiltration of the liver as seen on recent CT. Other findings as above. Dictated by Nikos Rico MD @ Oct 29 2018 12:50PM (Electronic Signature) Report Signed by Proxy. JT
[2018-10-30] MEDS: Enoxaparin 40 MG/0.4 ML Syringe SUBCUT SCH (20:12)
[2018-10-31] MEDS: Sodium Chloride 0.9% 1,000 ML IV SCH ×4 (02:09→11:48)
[2018-10-31] MEDS: Insulin Aspart 100 Units/ML 3 ML Pen SUBCUT SCH ×2 (03:30→10:15)
[2018-10-31 06:05] LABS: CHLORIDE,CL 106 mmol/L (98-107); SODIUM,NA 139 mmol/L (136-148)
[2018-10-31] MEDS: Morphine 2 MG/ML Syringe IVPUSH PRN (06:05)
[2018-10-31] MEDS: Pantoprazole 40 MG Tab.CR PO SCH ×2 (06:59→08:26)
[2018-10-31] MEDS ORDERED: Magnesium Sulfate/Water 2 GM in Premix Bag 1 BAG IV ONE (07:32)
[2018-10-31] MEDS: Escitalopram 10 MG Tab PO SCH (08:26)
[2018-10-31] MEDS ORDERED: Lisinopril 5 MG Tab PO SCH (09:00)
--- NOTE | 2018-10-31 09:55 | PCM.PN ---
<José Streeter - Last Filed: 10/31/18 09:50> - General Info Date of Service: 10/31/18 Subjective Update: No acute events overnight. Remained afebrile. Abdominal pain improving. No nausea or vomiting. Had a BM last night. - Patient Data Vitals - Most Recent: Last Vital Signs Temp 36 C 10/31/18 08:36 Pulse 94 10/31/18 08:36 Resp 16 10/31/18 08:36 BP 136/86 10/31/18 08:36 Pulse Ox 96 10/31/18 08:36 Weight - Most Recent: 176.493 kg I&O - Last 24 Hours: Intake & Output 10/30/18 10/31/18 10/31/18 22:59 06:59 14:59 Intake Total 1530 2517 Output Total 1200 1325 Balance 330 1192 Lab Results Last 24 Hours: Laboratory Results - last 24 hr 10/30/18 10/30/18 10/30/18 Range/Units 10:16 15:09 20:18 Sodium (136-148) mmol/L Potassium (3.5-5.1) mmol/L Chloride (98-107) mmol/L Carbon Dioxide (21.0-32.0) mmol/L BUN (7.0-18.0) mg/dL Creatinine (0.8-1.3) mg/dL Est Cr Clr Drug Dosing mL/min Estimated GFR (MDRD) ml/min Glucose (74-106) mg/dL POC Glucose 136 H 126 H 108 (60-110) mg/dL Calcium (8.5-10.1) mg/dL Magnesium (1.8-2.4) mg/dL Total Bilirubin (0.2-1.0) mg/dL AST (15-37) IU/L ALT (14-63) IU/L Alkaline Phosphatase (46-116) U/L Total Protein (6.4-8.2) g/dL Albumin (3.4-5.0) g/dL Globulin (2.6-4.0) g/dL Albumin/Globulin Ratio (0.9-1.6) Lipase (73-393) U/L 10/31/18 10/31/18 10/31/18 Range/Units 03:32 05:45 09:09 Sodium 139 (136-148) mmol/L Potassium 4.5 (3.5-5.1) mmol/L Chloride 106 (98-107) mmol/L Carbon Dioxide 18.2 L (21.0-32.0) mmol/L BUN 4 L (7.0-18.0) mg/dL Creatinine 0.8 (0.8-1.3) mg/dL Est Cr Clr Drug Dosing 167.20 mL/min Estimated GFR (MDRD) > 60.0 ml/min Glucose 121 H (74-106) mg/dL POC Glucose 104 130 H (60-110) mg/dL Calcium 9.0 (8.5-10.1) mg/dL Magnesium 1.6 L (1.8-2.4) mg/dL Total Bilirubin 0.6 (0.2-1.0) mg/dL AST 79 H (15-37) IU/L ALT 200 H (14-63) IU/L Alkaline Phosphatase 65 (46-116) U/L Total Protein 7.2 (6.4-8.2) g/dL Albumin 3.3 L (3.4-5.0) g/dL Globulin 3.9 (2.6-4.0) g/dL Albumin/Globulin Ratio 0.9 (0.9-1.6) Lipase 1925 H (73-393) U/L Med Orders - Current: Current Medications Enoxaparin Sodium (Lovenox) 40 mg SUBCUT BEDTIME [facility] Last Admin: 10/30/18 20:12 Dose: 40 mg Escitalopram Oxalate (Lexapro) 10 mg PO DAILY [facility] Last Admin: 10/31/18 08:26 Dose: 10 mg Sodium Chloride (Normal Saline) 1,000 mls @ 250 mls/hr IV ASDIRECTED [facility] Last Admin: 10/31/18 07:14 Dose: 200 mls/hr Ibuprofen (Motrin) 600 mg PO Q6H PRN PRN Reason: Pain Insulin Aspart (Novolog) 0 unit SUBCUT Q6H [facility]; Protocol Last Admin: 10/31/18 03:30 Dose: Not Given Lisinopril (Prinivil) 10 mg PO DAILY [facility] Last Admin: 10/31/18 08:30 Dose: 10 mg Morphine Sulfate (Morphine) 2 mg IVPUSH Q4H PRN PRN Reason: Pain Last Admin: 10/31/18 06:05 Dose: 2 mg Ondansetron HCl (Zofran) 4 mg IVPUSH Q4H PRN PRN Reason: Nausea/Vomiting Last Admin: 10/30/18 12:08 Dose: 4 mg Pantoprazole Sodium (Protonix) 40 mg PO ACBREAKFAST [facility] Last Admin: 10/31/18 08:26 Dose: 40 mg Sodium Chloride (Saline Flush) 10 ml FLUSH ASDIRECTED PRN PRN Reason: Keep Vein Open Last Admin: 10/28/18 14:46 Dose: 10 ml Sodium Chloride (Saline Flush) 2.5 ml FLUSH ASDIRECTED PRN PRN Reason: Keep Vein Open Last Admin: 10/28/18 14:46 Dose: 2.5 ml Testosterone Cypionate (Depo-Testosterone) 100 mg IM Q7D [facility] Last Admin: 10/30/18 10:54 Dose: 100 mg Tramadol HCl (Ultram) 50 mg PO Q6H PRN PRN Reason: Pain Last Admin: 10/29/18 12:37 Dose: 50 mg Discontinued Medications Acetaminophen (Tylenol) 650 mg PO Q4H PRN PRN Reason: Pain (Mild 1-3)/fever Al Hydroxide/Mg Hydroxide 15 (ml/ Lidocaine HCl 5 ml) 0 ml PO ONETIME ONE Stop: 10/28/18 20:48 Last Admin: 10/28/18 22:24 Dose: 20 each Al Hydroxide/Mg Hydroxide 15 (ml/ Lidocaine HCl 5 ml) 0 ml PO ONETIME ONE Stop: 10/29/18 13:53 Last Admin: 10/29/18 14:07 Dose: 1 each Sodium Chloride (Normal Saline) 1,000 mls @ 999 mls/hr IV STAT ONE Stop: 10/28/18 15:33 Last Admin: 10/28/18 14:46 Dose: 999 mls/hr Potassium Chloride/Dextrose/Sod Cl (D5 1/2 Ns W/ 20 Meq/L Kcl) 1,000 mls @ 150 mls/hr IV ASDIRECTED [facility] Last Admin: 10/28/18 17:32 Dose: 150 mls/hr Magnesium Sulfate 2 gm/ Premix 50 mls @ 25 mls/hr IV ONETIME ONE Stop: 10/31/18 09:31 Last Admin: 10/31/18 08:18 Dose: 25 mls/hr Insulin Aspart (Novolog) 0 unit SUBCUT ACBREAKFASTANDBED [facility]; Protocol Iopamidol (Isovue Multipack-370 (76%)) 100 ml IVPUSH ONETIME STA Stop: 10/28/18 16:10 Last Admin: 10/28/18 16:09 Dose: 100 ml Lisinopril (Prinivil) 5 mg PO DAILY [facility] Last Admin: 10/30/18 08:40 Dose: 5 mg Morphine Sulfate (Morphine) 4 mg IVPUSH ONETIME ONE Stop: 10/28/18 14:34 Last Admin: 10/28/18 14:46 Dose: 4 mg Morphine Sulfate (Morphine) 2 mg IVPUSH Q2H PRN PRN Reason: Pain (severe 7-10) Stop: 10/29/18 17:35 Last Admin: 10/29/18 08:07 Dose: 2 mg Morphine Sulfate (Morphine) 2 mg IVPUSH Q2H PRN PRN Reason: Pain (severe 7-10) Stop: 10/29/18 17:35 Last Admin: 10/29/18 11:33 Dose: 2 mg Non-Formulary Medication (Rosuvastatin Calcium [Rosuvastatin Calcium]) 20 mg PO BEDTIME [facility] Last Admin: 10/29/18 09:58 Dose: Not Given Ondansetron HCl (Zofran) 4 mg IVPUSH ONETIME ONE Stop: 10/28/18 14:34 Last Admin: 10/28/18 14:46 Dose: 4 mg Ondansetron HCl (Zofran) 4 mg IVPUSH ONETIME ONE Stop: 10/28/18 16:40 Last Admin: 10/28/18 16:45 Dose: 4 mg Pantoprazole Sodium (Protonix Iv) 80 mg IVPUSH .BOLUS ONE Stop: 10/28/18 14:34 Last Admin: 10/28/18 14:46 Dose: 80 mg Pantoprazole Sodium (Protonix Iv) 40 mg IVPUSH DAILY [facility] Last Admin: 10/30/18 09:42 Dose: 40 mg - Exam General: Alert, Oriented, Cooperative, No Acute Distress Lungs: Clear to Auscultation, Normal Respiratory Effort Cardiovascular: Regular Rate, Regular Rhythm GI/Abdominal Exam: Other (soft, low pitch bowel sounds. No rebound. Epigastric tenderness but much improved.) Skin: Warm, Dry Neurological: No New Focal Deficit - Problem List Review Problem List Initiated/Reviewed/Updated: Yes - My Orders Last 24 Hours: My Active Orders 10/30/18 10:00 Testosterone Cypionate [Depo-Testosterone] 100 mg IM Q7D 10/31/18 09:00 Lisinopril [Prinivil] 10 mg PO DAILY 10/31/18 Breakfast Clear Liquid Diet [DIET] 10/31/18 Lunch Clear Liquid Diet [DIET] - Plan Plan:: A: 1. Acute pancreatitis, improving 2. Hypomagnesemia, replaced 3. Diabetes mellitus type 2 4. Hypertension 5. Obesity P: 1. Acute pancreatitis, improving. Will advance diet to clear liquids and advance as tolerated. Continue pain management. 2. Hypomagnesemia. Replaced with MgS 2 g IV once. 3. Diabetes mellitus, type 2. Continue ISS. Dispo: plan to dc tomorrow if tolerating PO. <Gonsalo Mayes - Last Filed: 10/31/18 11:22> - General Info Admission Dx/Problem (Free Text): I have seen and examined the patient independently of neuropsychology medical consultant. I have discussed the case with the resident. I agree with the assessment and plan of care as outlined for this patient. Please see orders. Can be discharged today with instructions to follow-up with PCP. Stop Spike. - Patient Data Vitals - Most Recent: Last Vital Signs Temp 36 C 10/31/18 08:36 Pulse 94 10/31/18 08:36 Resp 16 10/31/18 08:36 BP 136/86 10/31/18 08:36 Pulse Ox 96 10/31/18 08:36 I&O - Last 24 Hours: Intake & Output 10/30/18 10/31/18 10/31/18 22:59 06:59 14:59 Intake Total 1530 2517 Output Total 1200 1325 Balance 330 1192 Lab Results Last 24 Hours: Laboratory Results - last 24 hr 10/30/18 10/30/18 10/30/18 Range/Units 10:16 15:09 20:18 Sodium (136-148) mmol/L Potassium (3.5-5.1) mmol/L Chloride (98-107) mmol/L Carbon Dioxide (21.0-32.0) mmol/L BUN (7.0-18.0) mg/dL Creatinine (0.8-1.3) mg/dL Est Cr Clr Drug Dosing mL/min Estimated GFR (MDRD) ml/min Glucose (74-106) mg/dL POC Glucose 136 H 126 H 108 (60-110) mg/dL Calcium (8.5-10.1) mg/dL Magnesium (1.8-2.4) mg/dL Total Bilirubin (0.2-1.0) mg/dL AST (15-37) IU/L ALT (14-63) IU/L Alkaline Phosphatase (46-116) U/L Total Protein (6.4-8.2) g/dL Albumin (3.4-5.0) g/dL Globulin (2.6-4.0) g/dL Albumin/Globulin Ratio (0.9-1.6) Lipase (73-393) U/L 10/31/18 10/31/18 10/31/18 Range/Units 03:32 05:45 09:09 Sodium 139 (136-148) mmol/L Potassium 4.5 (3.5-5.1) mmol/L Chloride 106 (98-107) mmol/L Carbon Dioxide 18.2 L (21.0-32.0) mmol/L BUN 4 L (7.0-18.0) mg/dL Creatinine 0.8 (0.8-1.3) mg/dL Est Cr Clr Drug Dosing 167.20 mL/min Estimated GFR (MDRD) > 60.0 ml/min Glucose 121 H (74-106) mg/dL POC Glucose 104 130 H (60-110) mg/dL Calcium 9.0 (8.5-10.1) mg/dL Magnesium 1.6 L (1.8-2.4) mg/dL Total Bilirubin 0.6 (0.2-1.0) mg/dL AST 79 H (15-37) IU/L ALT 200 H (14-63) IU/L Alkaline Phosphatase 65 (46-116) U/L Total Protein 7.2 (6.4-8.2) g/dL Albumin 3.3 L (3.4-5.0) g/dL Globulin 3.9 (2.6-4.0) g/dL Albumin/Globulin Ratio 0.9 (0.9-1.6) Lipase 1925 H (73-393) U/L Med Orders - Current: Current Medications Enoxaparin Sodium (Lovenox) 40 mg SUBCUT BEDTIME [facility] Last Admin: 10/30/18 20:12 Dose: 40 mg Escitalopram Oxalate (Lexapro) 10 mg PO DAILY [facility] Last Admin: 10/31/18 08:26 Dose: 10 mg Sodium Chloride (Normal Saline) 1,000 mls @ 250 mls/hr IV ASDIRECTED [facility] Last Admin: 10/31/18 07:14 Dose: 200 mls/hr Ibuprofen (Motrin) 600 mg PO Q6H PRN PRN Reason: Pain Insulin Aspart (Novolog) 0 unit SUBCUT ACBREAKFASTANDBED [facility]; Protocol Lisinopril (Prinivil) 10 mg PO DAILY [facility] Last Admin: 10/31/18 08:30 Dose: 10 mg Morphine Sulfate (Morphine) 2 mg IVPUSH Q4H PRN PRN Reason: Pain Last Admin: 10/31/18 06:05 Dose: 2 mg Ondansetron HCl (Zofran) 4 mg IVPUSH Q4H PRN PRN Reason: Nausea/Vomiting Last Admin: 10/30/18 12:08 Dose: 4 mg Pantoprazole Sodium (Protonix) 40 mg PO ACBREAKFAST [facility] Last Admin: 10/31/18 08:26 Dose: 40 mg Sodium Chloride (Saline Flush) 10 ml FLUSH ASDIRECTED PRN PRN Reason: Keep Vein Open Last Admin: 10/28/18 14:46 Dose: 10 ml Sodium Chloride (Saline Flush) 2.5 ml FLUSH ASDIRECTED PRN PRN Reason: Keep Vein Open Last Admin: 10/28/18 14:46 Dose: 2.5 ml Testosterone Cypionate (Depo-Testosterone) 100 mg IM Q7D [facility] Last Admin: 10/30/18 10:54 Dose: 100 mg Tramadol HCl (Ultram) 50 mg PO Q6H PRN PRN Reason: Pain Last Admin: 10/29/18 12:37 Dose: 50 mg Discontinued Medications Acetaminophen (Tylenol) 650 mg PO Q4H PRN PRN Reason: Pain (Mild 1-3)/fever Al Hydroxide/Mg Hydroxide 15 (ml/ Lidocaine HCl 5 ml) 0 ml PO ONETIME ONE Stop: 10/28/18 20:48 Last Admin: 10/28/18 22:24 Dose: 20 each Al Hydroxide/Mg Hydroxide 15 (ml/ Lidocaine HCl 5 ml) 0 ml PO ONETIME ONE Stop: 10/29/18 13:53 Last Admin: 10/29/18 14:07 Dose: 1 each Sodium Chloride (Normal Saline) 1,000 mls @ 999 mls/hr IV STAT ONE Stop: 10/28/18 15:33 Last Admin: 10/28/18 14:46 Dose: 999 mls/hr Potassium Chloride/Dextrose/Sod Cl (D5 1/2 Ns W/ 20 Meq/L Kcl) 1,000 mls @ 150 mls/hr IV ASDIRECTED [facility] Last Admin: 10/28/18 17:32 Dose: 150 mls/hr Magnesium Sulfate 2 gm/ Premix 50 mls @ 25 mls/hr IV ONETIME ONE Stop: 10/31/18 09:31 Last Admin: 10/31/18 08:18 Dose: 25 mls/hr Insulin Aspart (Novolog) 0 unit SUBCUT ACBREAKFASTANDBED [facility]; Protocol Insulin Aspart (Novolog) 0 unit SUBCUT Q6H [facility]; Protocol Last Admin: 10/31/18 10:15 Dose: Not Given Iopamidol (Isovue Multipack-370 (76%)) 100 ml IVPUSH ONETIME STA Stop: 10/28/18 16:10 Last Admin: 10/28/18 16:09 Dose: 100 ml Lisinopril (Prinivil) 5 mg PO DAILY [facility] Last Admin: 10/30/18 08:40 Dose: 5 mg Morphine Sulfate (Morphine) 4 mg IVPUSH ONETIME ONE Stop: 10/28/18 14:34 Last Admin: 10/28/18 14:46 Dose: 4 mg Morphine Sulfate (Morphine) 2 mg IVPUSH Q2H PRN PRN Reason: Pain (severe 7-10) Stop: 10/29/18 17:35 Last Admin: 10/29/18 08:07 Dose: 2 mg Morphine Sulfate (Morphine) 2 mg IVPUSH Q2H PRN PRN Reason: Pain (severe 7-10) Stop: 10/29/18 17:35 Last Admin: 10/29/18 11:33 Dose: 2 mg Non-Formulary Medication (Rosuvastatin Calcium [Rosuvastatin Calcium]) 20 mg PO BEDTIME [facility] Last Admin: 10/29/18 09:58 Dose: Not Given Ondansetron HCl (Zofran) 4 mg IVPUSH ONETIME ONE Stop: 10/28/18 14:34 Last Admin: 10/28/18 14:46 Dose: 4 mg Ondansetron HCl (Zofran) 4 mg IVPUSH ONETIME ONE Stop: 10/28/18 16:40 Last Admin: 10/28/18 16:45 Dose: 4 mg Pantoprazole Sodium (Protonix Iv) 80 mg IVPUSH .BOLUS ONE Stop: 10/28/18 14:34 Last Admin: 10/28/18 14:46 Dose: 80 mg Pantoprazole Sodium (Protonix Iv) 40 mg IVPUSH DAILY [facility] Last Admin: 10/30/18 09:42 Dose: 40 mg - Problem List & Annotations (1) Pancreatitis SNOMED Code(s): 93905410 Code(s): K85.90 - ACUTE PANCREATITIS WITHOUT NECROSIS OR INFECTION, UNSP Status: Acute Priority: High Current Visit: Yes (2) Hypertension SNOMED Code(s): 02676247 Code(s): I10 - ESSENTIAL (PRIMARY) HYPERTENSION Status: Chronic Priority : High Current Visit: Yes Qualifiers: Hypertension type: essential hypertension Qualified Code(s): I10 - Essential (primary) hypertension (3) Morbid obesity with BMI of 45.0-49.9, adult SNOMED Code(s): 754415829 Code(s): E66.01 - MORBID (SEVERE) OBESITY DUE TO EXCESS CALORIES; Z68.42 - BODY MASS INDEX (BMI) 45.0-49.9, ADULT Status: Chronic Priority: High Current Visit: Yes (4) Transaminitis SNOMED Code(s): 354919207, 116643098 Code(s): R74.0 - NONSPEC ELEV OF LEVELS OF TRANSAMNS & LACTIC ACID DEHYDRGNSE Status: Chronic Priority: High Current Visit: Yes (5) Diabetes mellitus, new onset SNOMED Code(s): 358863620, 294006039 Code(s): E11.9 - TYPE 2 DIABETES MELLITUS WITHOUT COMPLICATIONS Status: Chronic Priority: High Current Visit: Yes - My Orders Last 24 Hours: My Active Orders 10/31/18 11:30 Blood Glucose Check, Bedside [RC] QIDACANDBED Insulin Aspart [NovoLOG] See Protocol SUBCUT ACBREAKFASTANDBED
[2018-10-31] MEDS ORDERED: Insulin Aspart 100 Units/ML 3 ML Pen SUBCUT SCH (11:30)
[2018-10-31 12:42] VITALS: BP 138/86
--- NOTE | 2018-10-31 17:44 | PCM.DCSUM1 ---
<Charity MarilynJosé - Last Filed: 10/31/18 17:45> Discharge Summary - Hospital Course Free Text/Narrative:: Admission date: 10/28/18 Discharge date: 10/31/18 Admission diagnosis: 1. Acute pancreatitis 2. Diabetes mellitus,type 2 3. Hypertension 4. Transaminitis 5. Morbid obesity Discharge diagnosis: 1. Acute pancreatitis, improved 2. Diabetes mellitus, type 2 3. Hypertension, stable 4. Transiminitis 5. Morbid obesity Hospital course: Michael Deleon is a 28 y/o male with history of Diabetes mellitus type 2 who presented to the ED complaining of nausea and worsening abdominal pain. A CT abdomen/pelvis was peformed which showed mild inflammation at the body and tail of the pancreas. In addition, lipase level was elevated at approximately 2100. He was admitted for acute pancreatitis and pain control. It was noted that the patient recently started taking Victoza. His acute pancreatitis was thought to be due to Victoza. He was aggressively hydrated and pain was controlled. At time of discharge, he was able to tolerate PO intake. No nausea or vomiting and his pain was much improved. He was advised to stop taking Victoza and follow-up with his primary care provider for follow-up and management of his diabetes. Follow-up: 1. Primary care provider - Discharge Data Discharge Date: 10/31/18 Discharge Disposition: Home, Self-Care 01 Condition: Good - Patient Instructions Diet: Regular Diet as Tolerated, Drink 8-10+ Glasses/Day Activity: As Tolerated Notify Provider of: Fever, Increased Pain, Swelling and Redness, Nausea and/or Vomiting - Discharge Plan *PRESCRIPTION DRUG MONITORING PROGRAM REVIEWED*: Not Applicable *COPY OF PRESCRIPTION DRUG MONITORING REPORT IN PATIENT CHRISTI: Not Applicable Home Medications: Home Meds Empagliflozin [Jardiance] 10 mg PO DAILY 10/28/18 [History] Escitalopram [Lexapro] 10 mg PO DAILY 10/28/18 [History] Lisinopril [Prinivil] 5 mg PO DAILY 10/28/18 [History] Pantoprazole Sodium [Protonix] 40 mg PO DAILY 10/28/18 [History] Rosuvastatin Calcium 20 mg PO BEDTIME 10/28/18 [History] Testosterone Cypionate 100 mg IM WEEKLY 10/28/18 [History] metFORMIN HCl [Glucophage] 1,000 mg PO BIDMEALS 10/28/18 [History] traMADol [Ultram] 50 mg PO BID PRN 10/29/18 [History] Patient Handouts: Acute Pancreatitis Referrals: Shan Montoya MD [Primary Care Provider] - 11/09/18 9:30 am - Discharge Summary/Plan Comment DC Time >30 min.: No - Patient Data Vitals - Most Recent: Last Vital Signs Temp 35.6 C 10/31/18 12:00 Pulse 104 H 10/31/18 12:00 Resp 22 H 10/31/18 12:00 BP 138/86 10/31/18 12:00 Pulse Ox 95 10/31/18 12:00 Weight - Most Recent: 176.493 kg I&O - Last 24 hours: Intake & Output 10/31/18 10/31/18 10/31/18 06:59 14:59 22:59 Intake Total 2517 Output Total 1325 Balance 1192 Lab Results - Last 24 hrs: Laboratory Results - last 24 hr 10/30/18 10/30/18 10/30/18 Range/Units 10:16 15:09 20:18 Sodium (136-148) mmol/L Potassium (3.5-5.1) mmol/L Chloride (98-107) mmol/L Carbon Dioxide (21.0-32.0) mmol/L BUN (7.0-18.0) mg/dL Creatinine (0.8-1.3) mg/dL Est Cr Clr Drug Dosing mL/min Estimated GFR (MDRD) ml/min Glucose (74-106) mg/dL POC Glucose 136 H 126 H 108 (60-110) mg/dL Calcium (8.5-10.1) mg/dL Magnesium (1.8-2.4) mg/dL Total Bilirubin (0.2-1.0) mg/dL AST (15-37) IU/L ALT (14-63) IU/L Alkaline Phosphatase (46-116) U/L Total Protein (6.4-8.2) g/dL Albumin (3.4-5.0) g/dL Globulin (2.6-4.0) g/dL Albumin/Globulin Ratio (0.9-1.6) Lipase (73-393) U/L 10/31/18 10/31/18 10/31/18 Range/Units 03:32 05:45 09:09 Sodium 139 (136-148) mmol/L Potassium 4.5 (3.5-5.1) mmol/L Chloride 106 (98-107) mmol/L Carbon Dioxide 18.2 L (21.0-32.0) mmol/L BUN 4 L (7.0-18.0) mg/dL Creatinine 0.8 (0.8-1.3) mg/dL Est Cr Clr Drug Dosing 167.20 mL/min Estimated GFR (MDRD) > 60.0 ml/min Glucose 121 H (74-106) mg/dL POC Glucose 104 130 H (60-110) mg/dL Calcium 9.0 (8.5-10.1) mg/dL Magnesium 1.6 L (1.8-2.4) mg/dL Total Bilirubin 0.6 (0.2-1.0) mg/dL AST 79 H (15-37) IU/L ALT 200 H (14-63) IU/L Alkaline Phosphatase 65 (46-116) U/L Total Protein 7.2 (6.4-8.2) g/dL Albumin 3.3 L (3.4-5.0) g/dL Globulin 3.9 (2.6-4.0) g/dL Albumin/Globulin Ratio 0.9 (0.9-1.6) Lipase 1925 H (73-393) U/L 10/31/18 10/31/18 Range/Units 11:52 14:10 Sodium (136-148) mmol/L Potassium (3.5-5.1) mmol/L Chloride (98-107) mmol/L Carbon Dioxide (21.0-32.0) mmol/L BUN (7.0-18.0) mg/dL Creatinine (0.8-1.3) mg/dL Est Cr Clr Drug Dosing mL/min Estimated GFR (MDRD) ml/min Glucose (74-106) mg/dL POC Glucose 135 H 188 H (60-110) mg/dL Calcium (8.5-10.1) mg/dL Magnesium (1.8-2.4) mg/dL Total Bilirubin (0.2-1.0) mg/dL AST (15-37) IU/L ALT (14-63) IU/L Alkaline Phosphatase (46-116) U/L Total Protein (6.4-8.2) g/dL Albumin (3.4-5.0) g/dL Globulin (2.6-4.0) g/dL Albumin/Globulin Ratio (0.9-1.6) Lipase (73-393) U/L Med Orders - Current: Current Medications Discontinued Medications Acetaminophen (Tylenol) 650 mg PO Q4H PRN PRN Reason: Pain (Mild 1-3)/fever Al Hydroxide/Mg Hydroxide 15 (ml/ Lidocaine HCl 5 ml) 0 ml PO ONETIME ONE Stop: 10/28/18 20:48 Last Admin: 10/28/18 22:24 Dose: 20 each Al Hydroxide/Mg Hydroxide 15 (ml/ Lidocaine HCl 5 ml) 0 ml PO ONETIME ONE Stop: 10/29/18 13:53 Last Admin: 10/29/18 14:07 Dose: 1 each Enoxaparin Sodium (Lovenox) 40 mg SUBCUT BEDTIME [facility] Last Admin: 10/30/18 20:12 Dose: 40 mg Escitalopram Oxalate (Lexapro) 10 mg PO DAILY [facility] Last Admin: 10/31/18 08:26 Dose: 10 mg Sodium Chloride (Normal Saline) 1,000 mls @ 999 mls/hr IV STAT ONE Stop: 10/28/18 15:33 Last Admin: 10/28/18 14:46 Dose: 999 mls/hr Potassium Chloride/Dextrose/Sod Cl (D5 1/2 Ns W/ 20 Meq/L Kcl) 1,000 mls @ 150 mls/hr IV ASDIRECTED [facility] Last Admin: 10/28/18 17:32 Dose: 150 mls/hr Sodium Chloride (Normal Saline) 1,000 mls @ 250 mls/hr IV ASDIRECTED [facility] Last Admin: 10/31/18 11:48 Dose: 250 mls/hr Magnesium Sulfate 2 gm/ Premix 50 mls @ 25 mls/hr IV ONETIME ONE Stop: 10/31/18 09:31 Last Admin: 10/31/18 08:18 Dose: 25 mls/hr Ibuprofen (Motrin) 600 mg PO Q6H PRN PRN Reason: Pain Insulin Aspart (Novolog) 0 unit SUBCUT ACBREAKFASTANDBED ION; Protocol Insulin Aspart (Novolog) 0 unit SUBCUT Q6H ION; Protocol Last Admin: 10/31/18 10:15 Dose: Not Given Insulin Aspart (Novolog) 0 unit SUBCUT ACBREAKFASTANDBED [facility]; Protocol Last Admin: 10/31/18 14:35 Dose: Not Given Iopamidol (Isovue Multipack-370 (76%)) 100 ml IVPUSH ONETIME STA Stop: 10/28/18 16:10 Last Admin: 10/28/18 16:09 Dose: 100 ml Lisinopril (Prinivil) 5 mg PO DAILY [facility] Last Admin: 10/30/18 08:40 Dose: 5 mg Lisinopril (Prinivil) 10 mg PO DAILY [facility] Last Admin: 10/31/18 08:30 Dose: 10 mg Morphine Sulfate (Morphine) 4 mg IVPUSH ONETIME ONE Stop: 10/28/18 14:34 Last Admin: 10/28/18 14:46 Dose: 4 mg Morphine Sulfate (Morphine) 2 mg IVPUSH Q2H PRN PRN Reason: Pain (severe 7-10) Stop: 10/29/18 17:35 Last Admin: 10/29/18 08:07 Dose: 2 mg Morphine Sulfate (Morphine) 2 mg IVPUSH Q2H PRN PRN Reason: Pain (severe 7-10) Stop: 10/29/18 17:35 Last Admin: 10/29/18 11:33 Dose: 2 mg Morphine Sulfate (Morphine) 2 mg IVPUSH Q4H PRN PRN Reason: Pain Last Admin: 10/31/18 06:05 Dose: 2 mg Non-Formulary Medication (Rosuvastatin Calcium [Rosuvastatin Calcium]) 20 mg PO BEDTIME [facility] Last Admin: 10/29/18 09:58 Dose: Not Given Ondansetron HCl (Zofran) 4 mg IVPUSH ONETIME ONE Stop: 10/28/18 14:34 Last Admin: 10/28/18 14:46 Dose: 4 mg Ondansetron HCl (Zofran) 4 mg IVPUSH ONETIME ONE Stop: 10/28/18 16:40 Last Admin: 10/28/18 16:45 Dose: 4 mg Ondansetron HCl (Zofran) 4 mg IVPUSH Q4H PRN PRN Reason: Nausea/Vomiting Last Admin: 10/30/18 12:08 Dose: 4 mg Pantoprazole Sodium (Protonix Iv) 80 mg IVPUSH .BOLUS ONE Stop: 10/28/18 14:34 Last Admin: 10/28/18 14:46 Dose: 80 mg Pantoprazole Sodium (Protonix) 40 mg PO ACBREAKFAST [facility] Last Admin: 10/31/18 08:26 Dose: 40 mg Pantoprazole Sodium (Protonix Iv) 40 mg IVPUSH DAILY [facility] Last Admin: 10/30/18 09:42 Dose: 40 mg Sodium Chloride (Saline Flush) 10 ml FLUSH ASDIRECTED PRN PRN Reason: Keep Vein Open Last Admin: 10/28/18 14:46 Dose: 10 ml Sodium Chloride (Saline Flush) 2.5 ml FLUSH ASDIRECTED PRN PRN Reason: Keep Vein Open Last Admin: 10/28/18 14:46 Dose: 2.5 ml Testosterone Cypionate (Depo-Testosterone) 100 mg IM Q7D [facility] Last Admin: 10/30/18 10:54 Dose: 100 mg Tramadol HCl (Ultram) 50 mg PO Q6H PRN PRN Reason: Pain Last Admin: 10/29/18 12:37 Dose: 50 mg <Gonsalo Mayes - Last Filed: 11/01/18 07:22> Discharge Summary - Hospital Course Free Text/Narrative:: I have seen and examined the patient independently of medical care evaluation specialist. I have discussed the case with the resident. I agree with the assessment and plan of care outlined for this patient. Please see orders. Patient was physically active , no distress and walking. Able to tolerate diet and pain free. to follow-up with his PCP. Adverse drug reaction filed. - Discharge Diagnosis/Problem(s) (1) Pancreatitis SNOMED Code(s): 48039405 ICD Code: K85.90 - ACUTE PANCREATITIS WITHOUT NECROSIS OR INFECTION, UNSP Status: Acute Priority: High (2) Hypertension SNOMED Code(s): 91522600 ICD Code: I10 - ESSENTIAL (PRIMARY) HYPERTENSION Status: Chronic Priority : High Qualifiers: Hypertension type: essential hypertension Qualified Code(s): I10 - Essential (primary) hypertension (3) Morbid obesity with BMI of 45.0-49.9, adult SNOMED Code(s): 083499908 ICD Code: E66.01 - MORBID (SEVERE) OBESITY DUE TO EXCESS CALORIES; Z68.42 - BODY MASS INDEX (BMI) 45.0-49.9, ADULT Status: Chronic Priority: High (4) Transaminitis SNOMED Code(s): 528013678, 625368531 ICD Code: R74.0 - NONSPEC ELEV OF LEVELS OF TRANSAMNS & LACTIC ACID DEHYDRGNSE Status: Chronic Priority: High (5) Diabetes mellitus, new onset SNOMED Code(s): 154753586, 198680309 ICD Code: E11.9 - TYPE 2 DIABETES MELLITUS WITHOUT COMPLICATIONS Status: Chronic Priority: High - Patient Data Vitals - Most Recent: Last Vital Signs Temp 35.6 C 10/31/18 12:00 Pulse 104 H 10/31/18 12:00 Resp 22 H 10/31/18 12:00 BP 138/86 10/31/18 12:00 Pulse Ox 95 10/31/18 12:00 Lab Results - Last 24 hrs: Laboratory Results - last 24 hr 10/31/18 10/31/18 10/31/18 Range/Units 09:09 11:52 14:10 POC Glucose 130 H 135 H 188 H (60-110) mg/dL Med Orders - Current: Current Medications Discontinued Medications Acetaminophen (Tylenol) 650 mg PO Q4H PRN PRN Reason: Pain (Mild 1-3)/fever Al Hydroxide/Mg Hydroxide 15 (ml/ Lidocaine HCl 5 ml) 0 ml PO ONETIME ONE Stop: 10/28/18 20:48 Last Admin: 10/28/18 22:24 Dose: 20 each Al Hydroxide/Mg Hydroxide 15 (ml/ Lidocaine HCl 5 ml) 0 ml PO ONETIME ONE Stop: 10/29/18 13:53 Last Admin: 10/29/18 14:07 Dose: 1 each Enoxaparin Sodium (Lovenox) 40 mg SUBCUT BEDTIME [facility] Last Admin: 10/30/18 20:12 Dose: 40 mg Escitalopram Oxalate (Lexapro) 10 mg PO DAILY [facility] Last Admin: 10/31/18 08:26 Dose: 10 mg Sodium Chloride (Normal Saline) 1,000 mls @ 999 mls/hr IV STAT ONE Stop: 10/28/18 15:33 Last Admin: 10/28/18 14:46 Dose: 999 mls/hr Potassium Chloride/Dextrose/Sod Cl (D5 1/2 Ns W/ 20 Meq/L Kcl) 1,000 mls @ 150 mls/hr IV ASDIRECTED [facility] Last Admin: 10/28/18 17:32 Dose: 150 mls/hr Sodium Chloride (Normal Saline) 1,000 mls @ 250 mls/hr IV ASDIRECTED [facility] Last Admin: 10/31/18 11:48 Dose: 250 mls/hr Magnesium Sulfate 2 gm/ Premix 50 mls @ 25 mls/hr IV ONETIME ONE Stop: 10/31/18 09:31 Last Admin: 10/31/18 08:18 Dose: 25 mls/hr Ibuprofen (Motrin) 600 mg PO Q6H PRN PRN Reason: Pain Insulin Aspart (Novolog) 0 unit SUBCUT ACBREAKFASTANDBED [facility]; Protocol Insulin Aspart (Novolog) 0 unit SUBCUT Q6H ION; Protocol Last Admin: 10/31/18 10:15 Dose: Not Given Insulin Aspart (Novolog) 0 unit SUBCUT ACBREAKFASTANDBED [facility]; Protocol Last Admin: 10/31/18 14:35 Dose: Not Given Iopamidol (Isovue Multipack-370 (76%)) 100 ml IVPUSH ONETIME STA Stop: 10/28/18 16:10 Last Admin: 10/28/18 16:09 Dose: 100 ml Lisinopril (Prinivil) 5 mg PO DAILY [facility] Last Admin: 10/30/18 08:40 Dose: 5 mg Lisinopril (Prinivil) 10 mg PO DAILY [facility] Last Admin: 10/31/18 08:30 Dose: 10 mg Morphine Sulfate (Morphine) 4 mg IVPUSH ONETIME ONE Stop: 10/28/18 14:34 Last Admin: 10/28/18 14:46 Dose: 4 mg Morphine Sulfate (Morphine) 2 mg IVPUSH Q2H PRN PRN Reason: Pain (severe 7-10) Stop: 10/29/18 17:35 Last Admin: 10/29/18 08:07 Dose: 2 mg Morphine Sulfate (Morphine) 2 mg IVPUSH Q2H PRN PRN Reason: Pain (severe 7-10) Stop: 10/29/18 17:35 Last Admin: 10/29/18 11:33 Dose: 2 mg Morphine Sulfate (Morphine) 2 mg IVPUSH Q4H PRN PRN Reason: Pain Last Admin: 10/31/18 06:05 Dose: 2 mg Non-Formulary Medication (Rosuvastatin Calcium [Rosuvastatin Calcium]) 20 mg PO BEDTIME [facility] Last Admin: 10/29/18 09:58 Dose: Not Given Ondansetron HCl (Zofran) 4 mg IVPUSH ONETIME ONE Stop: 10/28/18 14:34 Last Admin: 10/28/18 14:46 Dose: 4 mg Ondansetron HCl (Zofran) 4 mg IVPUSH ONETIME ONE Stop: 10/28/18 16:40 Last Admin: 10/28/18 16:45 Dose: 4 mg Ondansetron HCl (Zofran) 4 mg IVPUSH Q4H PRN PRN Reason: Nausea/Vomiting Last Admin: 10/30/18 12:08 Dose: 4 mg Pantoprazole Sodium (Protonix Iv) 80 mg IVPUSH .BOLUS ONE Stop: 10/28/18 14:34 Last Admin: 10/28/18 14:46 Dose: 80 mg Pantoprazole Sodium (Protonix) 40 mg PO ACBREAKFAST [facility] Last Admin: 10/31/18 08:26 Dose: 40 mg Pantoprazole Sodium (Protonix Iv) 40 mg IVPUSH DAILY [facility] Last Admin: 10/30/18 09:42 Dose: 40 mg Sodium Chloride (Saline Flush) 10 ml FLUSH ASDIRECTED PRN PRN Reason: Keep Vein Open Last Admin: 10/28/18 14:46 Dose: 10 ml Sodium Chloride (Saline Flush) 2.5 ml FLUSH ASDIRECTED PRN PRN Reason: Keep Vein Open Last Admin: 10/28/18 14:46 Dose: 2.5 ml Testosterone Cypionate (Depo-Testosterone) 100 mg IM Q7D [facility] Last Admin: 10/30/18 10:54 Dose: 100 mg Tramadol HCl (Ultram) 50 mg PO Q6H PRN PRN Reason: Pain Last Admin: 10/29/18 12:37 Dose: 50 mg
== END 2018-10-31 15:25 | disposition home or self-care (01) | DRG 439 ==
LOC: MW.ED 13:48 → MW.ICU 17:31 → OBSVTOIN 10-30 06:52 → MW.MS 10-31 04:36
PROVIDERS: ADMIT Internal Medicine; ATTEND Internal Medicine
DX: K85.90 Acute pancreatitis without necrosis or infection, unspecified (principal); K21.9 Gastro-esophageal reflux disease without esophagitis; K85.30 Drug induced acute pancreatitis without necrosis or infection; Z68.42 Body mass index [BMI] 45.0-49.9, adult; M10.9 Gout, unspecified; F41.9 Anxiety disorder, unspecified; T50.995A Adverse effect of other drugs, medicaments and biological substances, initial encounter; Y92.019 Unspecified place in single-family (private) house as the place of occurrence of the external cause; E11.9 Type 2 diabetes mellitus without complications; I10 Essential (primary) hypertension; R74.0 Nonspecific elevation of levels of transaminase and lactic acid dehydrogenase [LDH]; K76.0 Fatty (change of) liver, not elsewhere classified; E83.42 Hypomagnesemia; E66.01 Morbid (severe) obesity due to excess calories; F32.9 Major depressive disorder, single episode, unspecified; Z79.899 Other long term (current) drug therapy; Z79.84 Long term (current) use of oral hypoglycemic drugs
CPT/HCPCS: 36415 ×2; 74177; 76705; 80053 ×3; 80061; 81001; 82150; 82962 ×7; 83690 ×3; 85025 ×3; 86677; 87804 ×2; 93005; 96361; 96374; 96375; 96376; 99285; A9270 ×8; C9113; J1650 ×2; J1815; J2270 ×6; J2405 ×6; J3480; J7040 ×6; Q9967; 83735; 96372; G0378; J1071; J3475

== ENCOUNTER 2019-07-06 22:21 | Emergency (ER) | payer MEDICAID ==
[2019-07-06] MEDS ORDERED: Sodium Chloride 0.9% 1,000 ML IV ONE (22:38)
[2019-07-06] MEDS ORDERED: Sodium Chloride 0.9% 10 ML Syringe FLUSH PRN (22:38)
[2019-07-06] MEDS ORDERED: Sodium Chloride 0.9% 2.5 ML Syringe FLUSH PRN (22:38)
--- NOTE | 2019-07-06 22:38 | EDM.PDOC ---
ED HPI GENERAL MEDICAL PROBLEM - General Chief Complaint: Diabetic Complaint Stated Complaint: PT HAS HIGH SUGAR LEVEL Time Seen by Provider: 07/06/19 22:38 Source of Information: Reports: Patient History Limitations: Reports: No Limitations - History of Present Illness INITIAL COMMENTS - FREE TEXT/NARRATIVE: HISTORY AND PHYSICAL: History of present illness: Patient is a 29-year-old male type 2 diabetic presents to the ED with complaint of elevated blood sugar. He states his blood glucose was >600. He take 10mg insulin at bedtime as well as 2,000mg metformin daily. He states he recently stopped doing the keto diet which he believes is the cause of his elevated blood sugars. He denies fevers, chills, chest pain, cough, nausea, vomiting, abdominal pain, urinary or bowel symptoms. Review of systems: As per history of present illness and below otherwise all systems reviewed and negative. Past medical history: As per history of present illness and as reviewed below otherwise noncontributory. Surgical history: As per history of present illness and as reviewed below otherwise noncontributory. Social history: No reported history of drug or alcohol abuse. Family history: As per history of present illness and as reviewed below otherwise noncontributory. Physical exam: General: Patient sitting comfortably in no acute distress and nontoxic appearing HEENT: Atraumatic, normocephalic, pupils reactive, negative for conjunctival pallor or scleral icterus, mucous membranes moist, throat clear, neck supple, nontender, trachea midline. No meningeal signs. Lungs: Clear to auscultation, breath sounds equal bilaterally, chest nontender. Heart: S1S2, regular, negative for clicks, rubs, or overt murmur. Abdomen: Soft, nondistended, nontender. Negative for masses or hepatosplenomegaly. Negative for costovertebral tenderness. No rigidity, rebound , guarding. Pelvis: Stable nontender. Genitourinary: Deferred. Rectal: Deferred. Extremities: Atraumatic, negative for cords or calf pain. Neurovascular unremarkable. Neuro: Awake, alert, oriented. Cranial nerves II through XII unremarkable. Cerebellum unremarkable. Motor and sensory unremarkable throughout. Exam nonfocal. Notes: Respiratory therapy unable to get ABG after 3 attempts. Discussed with patient admitting for fluids and glucose control. He does not want to be admitted at this time and understands my concerns and risks of this. Diagnostics: CBC, CMP, UA, ABG Therapeutics: 1L NS IV 10 unit insulin IV x 2 Prescriptions: Impression: Hyperglycemia Plan: Drink plenty of fluids and take home medications as prescribed Follow up with primary care provider Return to ED as needed as discussed Definitive disposition and diagnosis as appropriate pending reevaluation and review of above. low back Pain Score (Numeric/FACES): 7 - Related Data Allergies Allergy/AdvReac Type Severity Reaction Status Date / Time No Known Allergies Allergy Verified 07/06/19 22:29 Home Meds: Home Meds Lisinopril [Prinivil] 5 mg PO DAILY 10/28/18 [History] Pantoprazole Sodium [Protonix] 40 mg PO DAILY 10/28/18 [History] Rosuvastatin Calcium 20 mg PO BEDTIME 10/28/18 [History] metFORMIN HCl [Glucophage] 1,000 mg PO BIDMEALS 10/28/18 [History] Insulin Glarg,Human.Rec.Analog [Lantus] 10 units SQ BEDTIME 07/06/19 [History] Past Medical History - Past Health History Medical/Surgical History: Denies Medical/Surgical History HEENT History: Reports: None Other HEENT History: multiple dental caries Cardiovascular History: Reports: Hypertension Other Cardiovascular History: pt claimed that he has on and off high BP but not on any medication Respiratory History: Reports: None Gastrointestinal History: Reports: None Other Gastrointestinal History: on and off nausea and vomiting for past 2 years Genitourinary History: Reports: None Other Genitourinary History: fatty liver disease Musculoskeletal History: Reports: Gout Neurological History: Reports: None Psychiatric History: Reports: Anxiety Endocrine/Metabolic History: Reports: Diabetes, Type II Hematologic History: Reports: None Immunologic History: Reports: None Oncologic (Cancer) History: Reports: None - Infectious Disease History Infectious Disease History: Reports: Chicken Pox - Past Surgical History HEENT Surgical History: Reports: Tonsillectomy Cardiovascular Surgical History: Reports: None GI Surgical History: Reports: Appendectomy Social & Family History - Family History Family Medical History: Noncontributory - Caffeine Use Caffeine Use: Reports: Soda Caffeine Use Comment: "every week" - Living Situation & Occupation Living situation: Reports: Single, with Family Occupation: Unemployed ED ROS GENERAL - Review of Systems Review Of Systems: ROS reveals no pertinent complaints other than HPI. ED EXAM GENERAL NO PERIP PULSE - Physical Exam Exam: See Below (see dictation) Course - Vital Signs Last Recorded V/S: Last Vital Signs Temp 96.3 F 07/06/19 22:28 Pulse 115 H 07/06/19 22:28 Resp 18 07/06/19 22:28 BP 148/97 H 07/06/19 22:28 Pulse Ox 96 07/06/19 22:28 - Orders/Labs/Meds Orders: Active Orders 24 hr Category Date Time Status Blood Glucose Check, Bedside [RC] ONETIME Care 07/06/19 22:37 Active BLOOD GAS ARTERIAL [BG] Stat Lab 07/06/19 22:49 Ordered UA RFX BHAVESH AND CULT IF INDIC [URIN] Stat Lab 07/06/19 23:57 Ordered Insulin Regular, Human [NovoLIN R] Med 07/06/19 23:59 Once 10 unit IVPUSH ONETIME ONE Sodium Chloride 0.9% [Saline Flush] Med 07/06/19 22:38 Active 10 ml FLUSH ASDIRECTED PRN Sodium Chloride 0.9% [Saline Flush] Med 07/06/19 22:38 Active 2.5 ml FLUSH ASDIRECTED PRN Saline Lock Insert [OM.PC] Stat Oth 07/06/19 22:37 Ordered Medication Orders Sodium Chloride (Saline Flush) 10 ml FLUSH ASDIRECTED PRN PRN Reason: Keep Vein Open Sodium Chloride (Saline Flush) 2.5 ml FLUSH ASDIRECTED PRN PRN Reason: Keep Vein Open Labs: Laboratory Tests 07/06/19 07/06/19 07/06/19 Range/Units 22:42 22:55 22:55 WBC 7.02 (4.0-11.0) K/uL RBC 5.70 (4.50-5.90) M/uL Hgb 15.9 (13.0-17.0) g/dL Hct 45.2 (38.0-50.0) % MCV 79.3 L (80.0-98.0) fL MCH 27.9 (27.0-32.0) pg MCHC 35.2 (31.0-37.0) g/dL RDW Std Deviation 37.7 (28.0-62.0) fl RDW Coeff of Gato 13 (11.0-15.0) % Plt Count 251 (150-400) K/uL MPV 10.30 (7.40-12.00) fL Neut % (Auto) 60.5 (48.0-80.0) % Lymph % (Auto) 30.6 (16.0-40.0) % Nolan % (Auto) 6.6 (0.0-15.0) % Eos % (Auto) 1.9 (0.0-7.0) % Baso % (Auto) 0.4 (0.0-1.5) % Neut # (Auto) 4.3 (1.4-5.7) K/uL Lymph # (Auto) 2.2 (0.6-2.4) K/uL Nolan # (Auto) 0.5 (0.0-0.8) K/uL Eos # (Auto) 0.1 (0.0-0.7) K/uL Baso # (Auto) 0.0 (0.0-0.1) K/uL Nucleated RBC % 0.0 /100WBC Nucleated RBCs # 0 K/uL Sodium 133 L (136-148) mmol/L Potassium 4.3 (3.5-5.1) mmol/L Chloride 93 L (98-107) mmol/L Carbon Dioxide 22.9 (21.0-32.0) mmol/L BUN 15 (7.0-18.0) mg/dL Creatinine 1.3 (0.8-1.3) mg/dL Est Cr Clr Drug Dosing 104.71 mL/min Estimated GFR (MDRD) > 60.0 ml/min Glucose 607 H* (74-106) mg/dL POC Glucose > 500 H (60-110) mg/dL Calcium 10.2 H (8.5-10.1) mg/dL Total Bilirubin 0.3 (0.2-1.0) mg/dL AST 36 (15-37) IU/L ALT 157 H (14-63) IU/L Alkaline Phosphatase 82 (46-116) U/L Total Protein 8.3 H (6.4-8.2) g/dL Albumin 4.3 (3.4-5.0) g/dL Globulin 4.0 (2.6-4.0) g/dL Albumin/Globulin Ratio 1.1 (0.9-1.6) Ketones (NEG) 07/06/19 07/06/19 Range/Units 22:55 23:46 WBC (4.0-11.0) K/uL RBC (4.50-5.90) M/uL Hgb (13.0-17.0) g/dL Hct (38.0-50.0) % MCV (80.0-98.0) fL MCH (27.0-32.0) pg MCHC (31.0-37.0) g/dL RDW Std Deviation (28.0-62.0) fl RDW Coeff of Gato (11.0-15.0) % Plt Count (150-400) K/uL MPV (7.40-12.00) fL Neut % (Auto) (48.0-80.0) % Lymph % (Auto) (16.0-40.0) % Nolan % (Auto) (0.0-15.0) % Eos % (Auto) (0.0-7.0) % Baso % (Auto) (0.0-1.5) % Neut # (Auto) (1.4-5.7) K/uL Lymph # (Auto) (0.6-2.4) K/uL Nolan # (Auto) (0.0-0.8) K/uL Eos # (Auto) (0.0-0.7) K/uL Baso # (Auto) (0.0-0.1) K/uL Nucleated RBC % /100WBC Nucleated RBCs # K/uL Sodium (136-148) mmol/L Potassium (3.5-5.1) mmol/L Chloride (98-107) mmol/L Carbon Dioxide (21.0-32.0) mmol/L BUN (7.0-18.0) mg/dL Creatinine (0.8-1.3) mg/dL Est Cr Clr Drug Dosing mL/min Estimated GFR (MDRD) ml/min Glucose (74-106) mg/dL POC Glucose 450 H (60-110) mg/dL Calcium (8.5-10.1) mg/dL Total Bilirubin (0.2-1.0) mg/dL AST (15-37) IU/L ALT (14-63) IU/L Alkaline Phosphatase (46-116) U/L Total Protein (6.4-8.2) g/dL Albumin (3.4-5.0) g/dL Globulin (2.6-4.0) g/dL Albumin/Globulin Ratio (0.9-1.6) Ketones NEGATIVE (NEG) Meds: Medications Generic Name Dose Route Start Last Admin Trade Name Freq PRN Reason Stop Dose Admin Sodium Chloride 10 ml 07/06/19 22:38 Saline Flush FLUSH ASDIRECTED PRN Keep Vein Open Sodium Chloride 2.5 ml 07/06/19 22:38 Saline Flush FLUSH ASDIRECTED PRN Keep Vein Open Discontinued Medications Generic Name Dose Route Start Last Admin Trade Name Freq PRN Reason Stop Dose Admin Sodium Chloride 1,000 mls @ 999 mls/hr 07/06/19 22:38 07/06/19 23:04 Normal Saline IV 07/06/19 23:38 999 mls/hr STAT ONE Administration Insulin Human Regular 10 unit 07/06/19 22:49 07/06/19 23:03 Novolin R IVPUSH 07/06/19 22:50 10 unit ONETIME ONE Administration Protocol Departure - Departure Time of Disposition: 00:03 Disposition: Home, Self-Care 01 Condition: Good Clinical Impression: Hyperglycemia - Discharge Information Referrals: PCP,None [Primary Care Provider] - Forms: ED Department Discharge Additional Instructions: The following information is given to patients seen in the emergency department who are being discharged to home. This information is to outline your options for follow-up care. We provide all patients seen in our emergency department with a follow-up referral. The need for follow-up, as well as the timing and circumstances, are variable depending upon the specifics of your emergency department visit. If you don't have a primary care physician on staff, we will provide you with a referral. We always advise you to contact your personal physician following an emergency department visit to inform them of the circumstance of the visit and for follow-up with them and/or the need for any referrals to a consulting specialist. The emergency department will also refer you to a specialist when appropriate. This referral assures that you have the opportunity for follow-up care with a specialist. All of these measure are taken in an effort to provide you with optimal care, which includes your follow-up. Under all circumstances we always encourage you to contact your private physician who remains a resource for coordinating your care. When calling for follow-up care, please make the office aware that this follow-up is from your recent emergency room visit. If for any reason you are refused follow-up, please contact the [facility] Emergency Department at and asked to speak to the emergency department charge nurse. [facility] [address] [place] [address] [facility] [address] [place] [id number] Drink plenty of fluids and take home medications as prescribed Follow up with primary care provider Return to ED as needed as discussed - My Orders Last 24 Hours: My Active Orders 07/06/19 22:37 Blood Glucose Check, Bedside [RC] ONETIME Saline Lock Insert [OM.PC] Stat 07/06/19 22:38 Sodium Chloride 0.9% [Saline Flush] 10 ml FLUSH ASDIRECTED PRN Sodium Chloride 0.9% [Saline Flush] 2.5 ml FLUSH ASDIRECTED PRN 07/06/19 22:49 BLOOD GAS ARTERIAL [BG] Stat 07/06/19 23:57 UA RFX BHAVESH AND CULT IF INDIC [URIN] Stat 07/06/19 23:59 Insulin Regular, Human [NovoLIN R] 10 unit IVPUSH ONETIME ONE - Assessment/Plan Last 24 Hours: My Active Orders 07/06/19 22:37 Blood Glucose Check, Bedside [RC] ONETIME Saline Lock Insert [OM.PC] Stat 07/06/19 22:38 Sodium Chloride 0.9% [Saline Flush] 10 ml FLUSH ASDIRECTED PRN Sodium Chloride 0.9% [Saline Flush] 2.5 ml FLUSH ASDIRECTED PRN 07/06/19 22:49 BLOOD GAS ARTERIAL [BG] Stat 07/06/19 23:57 UA RFX BHAVESH AND CULT IF INDIC [URIN] Stat 07/06/19 23:59 Insulin Regular, Human [NovoLIN R] 10 unit IVPUSH ONETIME ONE
[2019-07-06] MEDS ORDERED: Insulin Regular, Human 100 Units/ML 10 ML Vial IVPUSH ONE ×2 (22:49→23:59)
[2019-07-06 23:38] LABS: BLOOD UREA NITROGEN,BUN 15 mg/dL (7.0-18.0); CARBON DIOXIDE,CO2 22.9 mmol/L (21.0-32.0); CHLORIDE,CL 93 mmol/L (98-107); POTASSIUM,K 4.3 mmol/L (3.5-5.1); SODIUM,NA 133 mmol/L (136-148)
[2019-07-06 23:39] LABS: GLUCOSE RANDOM 607 mg/dL (74-106)
[2019-07-07 01:00] VITALS: BP 138/79; PULSE 108
== END 2019-07-07 00:50 | disposition home or self-care (01) ==
LOC: MW.ED 22:21
DX: E11.65 Type 2 diabetes mellitus with hyperglycemia (principal); F41.9 Anxiety disorder, unspecified; I10 Essential (primary) hypertension; Z79.4 Long term (current) use of insulin; Z79.899 Other long term (current) drug therapy
CPT/HCPCS: 36415; 80053; 81001; 82009; 82962; 85025; 96360; 99283; J7040; J1815-GY

== ENCOUNTER 2020-04-14 06:38 | Emergency (ER) | payer MEDICAID ==
[2020-04-14] MEDS ORDERED: Sodium Chloride 0.9% 1,000 ML IV ONE ×2 (06:49→10:18)
[2020-04-14] MEDS ORDERED: Sodium Chloride 0.9% 2.5 ML Syringe FLUSH PRN (07:24)
[2020-04-14] MEDS ORDERED: Sodium Chloride 0.9% 10 ML Syringe FLUSH PRN (07:24)
[2020-04-14] MEDS ORDERED: fentaNYL 50 MCG/ML SDV IVPUSH ONE (07:26)
--- NOTE | 2020-04-14 07:34 | EDM.PDOC ---
ED HPI GENERAL MEDICAL PROBLEM - General Chief Complaint: Neuro Symptoms/Deficits Stated Complaint: NERVE PAIN Time Seen by Provider: 04/14/20 06:59 Source of Information: Reports: Patient History Limitations: Reports: No Limitations - History of Present Illness INITIAL COMMENTS - FREE TEXT/NARRATIVE: This patient is a 30-year-old male with past medical history of morbid obesity, type 2 diabetes mellitus, hypertension, medication associated pancreatitis, hyperlipidemia presenting with back pain. Patient reports a one-week history of midline low back pain. This has limited his ability to get out of bed and care for himself. 4 days ago, the patient was struggling to get out of the bathtub when he felt a pop in his lower back and worsening of his low back pain. Since then he is essentially been bedbound, unable to get out of bed to walk or care for himself. He has not had a bowel movement for 4 days. He can tell that he needs to void urine but is unable to do so. He complains of numbness to the sole of his left foot and pain rating down the right lower extremity. He denies any recent blunt trauma to the back, lower extremity weakness, perineal anesthesia, autoimmune disease, fever, history of recent corticosteroid use, history of malignancy, prior spinal surgery. Right Leg Pain Score (Numeric/FACES): 10 - Related Data Allergies Allergy/AdvReac Type Severity Reaction Status Date / Time No Known Allergies Allergy Verified 04/14/20 06:49 Home Meds: Home Meds Pantoprazole Sodium [Protonix] 40 mg PO DAILY 10/28/18 [History] Rosuvastatin Calcium 20 mg PO BEDTIME 10/28/18 [History] lisinopriL [Prinivil] 5 mg PO DAILY 10/28/18 [History] metFORMIN HCl [Glucophage] 1,000 mg PO BIDMEALS 10/28/18 [History] Insulin Glarg,Human.Rec.Analog [Lantus] 15 units SQ BEDTIME 07/06/19 [History] Empagliflozin [Jardiance] 10 mg PO DAILY 04/14/20 [History] Past Medical History - Past Health History Medical/Surgical History: Denies Medical/Surgical History HEENT History: Reports: None Other HEENT History: multiple dental caries Cardiovascular History: Reports: Hypertension Other Cardiovascular History: pt claimed that he has on and off high BP but not on any medication Respiratory History: Reports: None Gastrointestinal History: Reports: None Other Gastrointestinal History: on and off nausea and vomiting for past 2 years Genitourinary History: Reports: None Other Genitourinary History: fatty liver disease Musculoskeletal History: Reports: Gout Neurological History: Reports: None Psychiatric History: Reports: Anxiety Endocrine/Metabolic History: Reports: Diabetes, Type II Hematologic History: Reports: None Immunologic History: Reports: None Oncologic (Cancer) History: Reports: None - Infectious Disease History Infectious Disease History: Reports: Chicken Pox - Past Surgical History HEENT Surgical History: Reports: Tonsillectomy Cardiovascular Surgical History: Reports: None GI Surgical History: Reports: Appendectomy Social & Family History - Family History Family Medical History: Noncontributory - Tobacco Use Smoking Status *Q: Never Smoker Second Hand Smoke Exposure: No - Caffeine Use Caffeine Use: Reports: None Caffeine Use Comment: "every week" - Recreational Drug Use Recreational Drug Use: No - Living Situation & Occupation Living situation: Reports: Single, with Family Occupation: Unemployed ED ROS GENERAL - Review of Systems Review Of Systems: See Below Constitutional: Denies: Fever HEENT: Reports: No Symptoms Respiratory: Denies: Shortness of Breath Cardiovascular: Denies: Chest Pain GI/Abdominal: Reports: Constipation. Denies: Abdominal Pain, Nausea, Vomiting : Reports: Urinary Retention Musculoskeletal: Reports: Back Pain Skin: Denies: Rash, Lesions Neurological: Reports: Numbness, Paresthesia. Denies: Headache Psychiatric: Reports: No Symptoms Hematologic/Lymphatic: Reports: No Symptoms Immunologic: Reports: No Symptoms ED EXAM,LOWER BACK PAIN/INJURY - Physical Exam Exam: See Below Text/Narrative:: Vital signs reviewed. Nursing notes reviewed. Constitutional: Awake, alert, appears very uncomfortable Head: Normocephalic, atraumatic. Eyes: EOMI, conjunctiva normal, no discharge, no scleral icterus. Ears, Nose, Throat: External ears and nose normal, moist oral mucosa. Cardiovascular: Tachycardic, 2+ radial pulse, capillary refill less than 2 seconds. Pulmonary: normal work of breathing, no accessory muscle use. Abdomen/GI: Soft, nontender, nondistended, no guarding or rigidity, no masses. Morbidly obese abdomen. : Intact rectal tone, soft stool in the rectal vault (chaperoned exam with RN) Musculoskeletal: No deformities. No skin changes, incisions, or wounds overlying the spine. Mild tenderness to palpation of the lowermost portion of the lumbar spine. Integumentary: Appropriate color for ethnicity, warm, diaphoretic, no pallor or jaundice, no rash. Neurologic: Alert, answering questions appropriately, normal speech, no facial droop, moving all extremities well. 4/5 strength with right thigh flexion and extension and knee flexion and extension. 5/5 strength to right elbow dorsi and plantar flexion, and all left lower extremity muscle groups. Intact perineal sensation. Unable to elicit reflexes in the lower extremities, complicate by patient positioning (would only tolerate being supine) and habitus. Psychiatric: Appropriate mood and affect, normal thought process. Course - Vital Signs Text/Narrative:: 30-year-old male with severe low back pain with lower extremity numbness and urinary retention. Patient afebrile but tachycardic, well-appearing, looks nontoxic. Differential diagnosis includes but is not limited to: Cauda equina syndrome, conus medullaris syndrome, sciatica, spinal epidural abscess, spinal epidural hematoma, etc. At 7:25 AM, I spoke with the gas plant technician who states that they currently have a sedated pediatric patient undergoing a scan. She estimates that the MRI will be free for our emergent studies at 9 AM. I asked her to reserve this time slot for our emergent studies. Bladder scan showed 999+ mL of urine (maximum reading possible). 8:29 AM: Neuro exam is concerning for weakness in the right lower extremity. Miller catheter is being placed. Immediately noted 1500 mL of urine out. We are awaiting MRI readiness. Labs show a leukocytosis, erythrocytosis. Normal lactate. Mildly low CO2. Elevated glucose at 196. Normal renal function. Mildly elevated ALT and AST. CRP is 1.50 but ESR is normal. Awaiting CT reads of the thoracic spine, lumbar spine, abdomen/pelvis. 0844: CT imaging of the spine demonstrated a circumferential disc bulge at L3-4 with moderate central canal stenosis. L4-5 shows mild circumferential disc bulge, posterior disc shows a focal protrusion or herniation to the midline. This is indenting the anterior thecal sac and causes moderate central canal stenosis. CT imaging of the thoracic spine shows mild degenerative changes but no acute findings. CT abdomen pelvis showed a mildly dilated bladder otherwise no acute findings. Urinalysis shows trace lysed blood and trace protein but no evidence of infection. 0930: Antibiotics have been empirically ordered. MRI crew is here to take the patient for MRI imaging. MRI studies of the thoracic and lumbar spine demonstrated disc herniation at L3- 4 in the midline with moderate canal stenosis, small disc retrusion at L4-5 causing mild central canal stenosis, right-sided neural foraminal stenosis L4-5 causing compromise of the exiting right L5 nerve root, but this appeared stable from prior exams. Given IV hydromorphone for pain and a second liter of fluid. He remained persistently tachycardic throughout his ED stay although he did not develop a fever and there is no radiographic evidence of infection. His urine does not appear infected. No evidence of intra-abdominal infection on CT imaging. No complaints of pain besides the lower back. No evidence of spinal epidural abscess on CT or MR imaging. Normal ESR with a mildly elevated CRP makes epidural abscess less likely as well. Given urinary retention and right lower extremity motor weakness, I think the patient needs to be evaluated by a neurosurgical engagement quality consultant, I am concerned that the right L5 nerve root compression is now becoming symptomatic. He will be t ransferred to [facility] in [place]. I spoke with Dr. Amaro in the ED who agrees to admit. Transfer to the ground EMS crew. Last Recorded V/S: Last Vital Signs Temp 36.1 C 04/14/20 06:42 Pulse 143 H 04/14/20 12:03 Resp 22 H 04/14/20 12:03 BP 127/78 04/14/20 12:03 Pulse Ox 95 04/14/20 12:03 - Orders/Labs/Meds Orders: Active Orders 24 hr Category Date Time Status Cardiac Monitoring [RC] CONTINUOUS Care 04/14/20 07:25 Active Insert Miller Catheter [Insert Urinary Catheter] [OM.PC] Care 04/14/20 07:30 Ordered Q24H Overnight Pulse Oximetry [RC] Click to Edit Care 04/14/20 07:25 Active Urinary Catheter Assessment [RC] ASDIRECTED Care 04/14/20 07:27 Active CULTURE BLOOD [BC] Stat Lab 04/14/20 07:41 Received CULTURE BLOOD [BC] Stat Lab 04/14/20 07:50 Received Sodium Chloride 0.9% [Saline Flush] Med 04/14/20 07:24 Active 10 ml FLUSH ASDIRECTED PRN Sodium Chloride 0.9% [Saline Flush] Med 04/14/20 07:24 Active 2.5 ml FLUSH ASDIRECTED PRN Vancomycin 4 gm Med 04/14/20 11:30 Active Sodium Chloride 0.9% [Normal Saline] 1,000 ml IV ONETIME Blood Culture x2 Reflex Set [OM.PC] Stat Ot 04/14/20 07:25 Ordered Pulse Oximetry Continuous Monitoring [OM.PC] Routine Ot 04/14/20 07:24 Ordered Saline Lock Insert [OM.PC] Stat Ot 04/14/20 07:25 Ordered Medication Orders Vancomycin HCl 4 gm/ Sodium (Chloride) 1,000 mls @ 125 mls/hr IV ONETIME ONE Stop: 04/14/20 19:29 Last Admin: 04/14/20 11:40 Dose: 125 mls/hr Documented by: ENA Sodium Chloride (Saline Flush) 10 ml FLUSH ASDIRECTED PRN PRN Reason: Keep Vein Open Sodium Chloride (Saline Flush) 2.5 ml FLUSH ASDIRECTED PRN PRN Reason: Keep Vein Open Labs: Laboratory Tests 04/14/20 04/14/20 04/14/20 Range/Units 06:42 06:42 06:42 WBC 12.17 H (4.0-11.0) K/uL RBC 6.88 H (4.50-5.90) M/uL Hgb 19.2 H (13.0-17.0) g/dL Hct 54.7 H (38.0-50.0) % MCV 79.5 L (80.0-98.0) fL MCH 27.9 (27.0-32.0) pg MCHC 35.1 (31.0-37.0) g/dL RDW Std Deviation 37.2 (28.0-62.0) fl RDW Coeff of Gato 13 (11.0-15.0) % Plt Count 272 (150-400) K/uL MPV 10.30 (7.40-12.00) fL Neut % (Auto) 68.6 (48.0-80.0) % Lymph % (Auto) 20.9 (16.0-40.0) % Hubbard % (Auto) 9.4 (0.0-15.0) % Eos % (Auto) 0.9 (0.0-7.0) % Baso % (Auto) 0.2 (0.0-1.5) % Neut # (Auto) 8.3 H (1.4-5.7) K/uL Lymph # (Auto) 2.5 H (0.6-2.4) K/uL Hubbard # (Auto) 1.2 H (0.0-0.8) K/uL Eos # (Auto) 0.1 (0.0-0.7) K/uL Baso # (Auto) 0.0 (0.0-0.1) K/uL Nucleated RBC % 0.0 /100WBC Nucleated RBCs # 0 K/uL ESR (0-14) mm/hr Lactate (0.20-2.00) mmol/L Sodium 134 L (136-148) mmol/L Potassium 4.2 (3.5-5.1) mmol/L Chloride 96 L (98-107) mmol/L Carbon Dioxide 19.2 L (21.0-32.0) mmol/L BUN 16 (7.0-18.0) mg/dL Creatinine 1.0 (0.8-1.3) mg/dL Est Cr Clr Drug Dosing 131.41 mL/min Estimated GFR (MDRD) > 60.0 ml/min Glucose 196 H (74-106) mg/dL Calcium 10.0 (8.5-10.1) mg/dL Total Bilirubin 0.8 (0.2-1.0) mg/dL AST 43 H (15-37) IU/L ALT 121 H (14-63) IU/L Alkaline Phosphatase 89 (46-116) U/L Creatine Kinase 139 (26-308) U/L C-Reactive Protein 1.50 H (0.00-0.90) mg/dL Total Protein 8.8 H (6.4-8.2) g/dL Albumin 4.9 (3.4-5.0) g/dL Globulin 3.9 (2.6-4.0) g/dL Albumin/Globulin Ratio 1.3 (0.9-1.6) Urine Color Urine Appearance Urine pH (5.0-8.0) Ur Specific Plummer (1.001-1.035) Urine Protein (NEGATIVE) mg/dL Urine Glucose (UA) (NEGATIVE) mg/dL Urine Ketones (NEGATIVE) mg/dL Urine Occult Blood (NEGATIVE) Urine Nitrite (NEGATIVE) Urine Bilirubin (NEGATIVE) Urine Ictotest Urine Urobilinogen (<2.0) EU/dL Ur Leukocyte Esterase (NEGATIVE) U Hyaline Cast (Auto) (0-2/LPF) Urine RBC (0-2/HPF) Urine WBC (0-5/HPF) Ur Epithelial Cells (NONE-FEW) Urine Bacteria (NEGATIVE) WBC Casts (NEGATIVE) 04/14/20 04/14/20 04/14/20 Range/Units 06:42 07:41 08:36 WBC (4.0-11.0) K/uL RBC (4.50-5.90) M/uL Hgb (13.0-17.0) g/dL Hct (38.0-50.0) % MCV (80.0-98.0) fL MCH (27.0-32.0) pg MCHC (31.0-37.0) g/dL RDW Std Deviation (28.0-62.0) fl RDW Coeff of Gato (11.0-15.0) % Plt Count (150-400) K/uL MPV (7.40-12.00) fL Neut % (Auto) (48.0-80.0) % Lymph % (Auto) (16.0-40.0) % Hubbard % (Auto) (0.0-15.0) % Eos % (Auto) (0.0-7.0) % Baso % (Auto) (0.0-1.5) % Neut # (Auto) (1.4-5.7) K/uL Lymph # (Auto) (0.6-2.4) K/uL Hubbard # (Auto) (0.0-0.8) K/uL Eos # (Auto) (0.0-0.7) K/uL Baso # (Auto) (0.0-0.1) K/uL Nucleated RBC % /100WBC Nucleated RBCs # K/uL ESR 1 (0-14) mm/hr Lactate 2.0 (0.20-2.00) mmol/L Sodium (136-148) mmol/L Potassium (3.5-5.1) mmol/L Chloride (98-107) mmol/L Carbon Dioxide (21.0-32.0) mmol/L BUN (7.0-18.0) mg/dL Creatinine (0.8-1.3) mg/dL Est Cr Clr Drug Dosing mL/min Estimated GFR (MDRD) ml/min Glucose (74-106) mg/dL Calcium (8.5-10.1) mg/dL Total Bilirubin (0.2-1.0) mg/dL AST (15-37) IU/L ALT (14-63) IU/L Alkaline Phosphatase (46-116) U/L Creatine Kinase (26-308) U/L C-Reactive Protein (0.00-0.90) mg/dL Total Protein (6.4-8.2) g/dL Albumin (3.4-5.0) g/dL Globulin (2.6-4.0) g/dL Albumin/Globulin Ratio (0.9-1.6) Urine Color YELLOW Urine Appearance CLEAR Urine pH 5.5 (5.0-8.0) Ur Specific Plummer 1.025 (1.001-1.035) Urine Protein TRACE H (NEGATIVE) mg/dL Urine Glucose (UA) >=1000 (NEGATIVE) mg/dL Urine Ketones >=80 (NEGATIVE) mg/dL Urine Occult Blood TRACE-LYSED H (NEGATIVE) Urine Nitrite NEGATIVE (NEGATIVE) Urine Bilirubin SMALL H (NEGATIVE) Urine Ictotest NEGATIVE Urine Urobilinogen 0.2 (<2.0) EU/dL Ur Leukocyte Esterase NEGATIVE (NEGATIVE) U Hyaline Cast (Auto) 2-4 (0-2/LPF) Urine RBC 0-2 (0-2/HPF) Urine WBC 3-5 (0-5/HPF) Ur Epithelial Cells RARE (NONE-FEW) Urine Bacteria NOT SEEN (NEGATIVE) WBC Casts 0-1 (NEGATIVE) Meds: Medications Generic Name Dose Route Start Last Admin Trade Name Freq PRN Reason Stop Dose Admin Vancomycin HCl 4 gm/ Sodium 1,000 mls @ 125 mls/hr 04/14/20 11:30 04/14/20 11:40 Chloride IV 04/14/20 19:29 125 mls/hr ONETIME ONE Administration Sodium Chloride 10 ml 04/14/20 07:24 Saline Flush FLUSH ASDIRECTED PRN Keep Vein Open Sodium Chloride 2.5 ml 04/14/20 07:24 Saline Flush FLUSH ASDIRECTED PRN Keep Vein Open Discontinued Medications Generic Name Dose Route Start Last Admin Trade Name Leslye PRN Reason Stop Dose Admin Acetaminophen 1,000 mg 04/14/20 07:47 04/14/20 07:51 Tylenol Extra Strength PO 04/14/20 07:48 1,000 mg ONETIME ONE Administration Fentanyl 150 mcg 04/14/20 07:26 04/14/20 07:35 Fentanyl IVPUSH 04/14/20 07:27 150 mcg ONETIME ONE Administration Hydromorphone HCl 1 mg 04/14/20 08:30 04/14/20 08:39 Dilaudid IVPUSH 04/14/20 08:31 1 mg ONETIME ONE Administration Hydromorphone HCl 1 mg 04/14/20 12:07 04/14/20 12:45 Dilaudid IVPUSH 04/14/20 12:08 1 mg ONETIME ONE Administration Sodium Chloride 1,000 mls @ 999 mls/hr 04/14/20 06:49 04/14/20 06:51 Normal Saline IV 04/14/20 07:49 999 mls/hr .Bolus ONE Administration Cefepime HCl 2 gm/ Premix 50 mls @ 100 mls/hr 04/14/20 09:27 04/14/20 09:37 IV 04/14/20 09:56 100 mls/hr ONETIME ONE Administration Vancomycin HCl 4 gm/ Sodium 500 mls @ 333 mls/hr 04/14/20 09:30 04/14/20 11:39 Chloride IV 04/14/20 11:00 Not Given ONETIME ONE Sodium Chloride 1,000 mls @ 999 mls/hr 04/14/20 10:18 04/14/20 10:18 Normal Saline IV 04/14/20 11:18 999 mls/hr .Bolus ONE Administration Ibuprofen 400 mg 04/14/20 07:47 04/14/20 07:51 Motrin PO 04/14/20 07:48 400 mg ONETIME ONE Administration Iopamidol 100 ml 04/14/20 08:10 04/14/20 08:17 Isovue Multipack-370 (76%) IVPUSH 04/14/20 08:11 100 ml ONETIME STA Administration Lidocaine 700 mg 04/14/20 07:47 04/14/20 07:57 Lidoderm 5% TOP 04/14/20 07:48 Not Given ONETIME ONE Departure - Departure Time of Disposition: 11:00 Disposition: DC/Tfer to Acute Hospital 02 Condition: Good Clinical Impression: Severe low back pain - Discharge Information Referrals: Dominick Lang MD [Primary Care Provider] - Forms: ED Department Discharge Sepsis Event Note (ED) - Evaluation Sepsis Screening Result: No Definite Risk - Focused Exam Vital Signs: Vital Signs Temp Pulse Resp BP Pulse Ox 04/14/20 12:03 143 H 22 H 127/78 95 04/14/20 10:58 142 H 17 114/70 91 L 04/14/20 09:04 126 H 20 132/87 91 L 04/14/20 08:39 124 H 16 141/90 H 93 L 04/14/20 07:34 129 H 27 H 150/103 H 92 L 04/14/20 07:04 134 H 18 121/91 H 92 L 04/14/20 06:52 139 H 26 H 122/98 H 94 L 04/14/20 06:42 36.1 C 146 H 20 143/105 H 94 L - My Orders Last 24 Hours: My Active Orders 04/14/20 07:24 Sodium Chloride 0.9% [Saline Flush] 10 ml FLUSH ASDIRECTED PRN Sodium Chloride 0.9% [Saline Flush] 2.5 ml FLUSH ASDIRECTED PRN Pulse Oximetry Continuous Monitoring [OM.PC] Routine 04/14/20 07:25 Cardiac Monitoring [RC] CONTINUOUS Overnight Pulse Oximetry [RC] Click to Edit Blood Culture x2 Reflex Set [OM.PC] Stat Saline Lock Insert [OM.PC] Stat 04/14/20 07:27 Urinary Catheter Assessment [RC] ASDIRECTED 04/14/20 07:30 Insert Miller Catheter [Insert Urinary Catheter] [OM.PC] Q24H 04/14/20 07:41 CULTURE BLOOD [BC] Stat 04/14/20 07:50 CULTURE BLOOD [BC] Stat 04/14/20 11:30 Vancomycin 4 gm Sodium Chloride 0.9% [Normal Saline] 1,000 ml IV ONETIME - Assessment/Plan Last 24 Hours: My Active Orders 04/14/20 07:24 Sodium Chloride 0.9% [Saline Flush] 10 ml FLUSH ASDIRECTED PRN Sodium Chloride 0.9% [Saline Flush] 2.5 ml FLUSH ASDIRECTED PRN Pulse Oximetry Continuous Monitoring [OM.PC] Routine 04/14/20 07:25 Cardiac Monitoring [RC] CONTINUOUS Overnight Pulse Oximetry [RC] Click to Edit Blood Culture x2 Reflex Set [OM.PC] Stat Saline Lock Insert [OM.PC] Stat 04/14/20 07:27 Urinary Catheter Assessment [RC] ASDIRECTED 04/14/20 07:30 Insert Miller Catheter [Insert Urinary Catheter] [OM.PC] Q24H 04/14/20 07:41 CULTURE BLOOD [BC] Stat 04/14/20 07:50 CULTURE BLOOD [BC] Stat 04/14/20 11:30 Vancomycin 4 gm Sodium Chloride 0.9% [Normal Saline] 1,000 ml IV ONETIME
[2020-04-14 07:46] LABS: BLOOD UREA NITROGEN,BUN 16 mg/dL (7.0-18.0); CARBON DIOXIDE,CO2 19.2 mmol/L (21.0-32.0); CHLORIDE,CL 96 mmol/L (98-107); GLUCOSE RANDOM 196 mg/dL (74-106); POTASSIUM,K 4.2 mmol/L (3.5-5.1); SODIUM,NA 134 mmol/L (136-148)
[2020-04-14] MEDS ORDERED: Lidocaine 5% 700 MG Patch TOP ONE (07:47)
[2020-04-14] MEDS ORDERED: Ibuprofen 400 MG Tab PO ONE (07:47)
[2020-04-14] MEDS ORDERED: Acetaminophen 500 MG Tab PO ONE (07:47)
[2020-04-14] MEDS ORDERED: Iopamidol 755 MG/ML 500 ML Multipack Bottle IVPUSH STA (08:10)
[2020-04-14] MEDS ORDERED: HYDROmorphone 1 MG/ML Syringe IVPUSH ONE ×2 (08:30→12:07)
--- NOTE | 2020-04-14 08:38 | CT ---
CT lumbar spine Technique: Multiple axial sections were obtained through the lumbar spine from the top of T10 inferiorly through the L5-S1 disc. Reconstructed coronal and sagittal images were obtained. Findings: T10-11: Mild posterior disc space narrowing noted. Anterior osteophytes are seen. Posterior disc between the concave margin. No central canal stenosis or neural foraminal stenosis is seen. Mild Schmorl node deformities are seen. T11-12: Posterior disc show slight narrowing. Minimal Schmorl node deformities are seen. Anterior osteophytes are noted. Posterior disc maintains a concave margin. No central canal stenosis or neural foraminal stenosis is seen. Minimal degenerative apophyseal change is seen. T12-L1: Mild posterior disc space narrowing is seen. Mild degenerative apophyseal change is noted. Posterior disc height in the concave margin. No central canal stenosis or neural foraminal stenosis is seen. L1-2: Posterior disc height in the concave margin. Minimal degenerative apophyseal change is seen. No central canal stenosis or neural foraminal stenosis is seen. L2-3: Posterior disc is maintained. Mild degenerative apophyseal change is noted. Posterior disc height is concave margin. No central canal stenosis or neural foraminal stenosis is seen. L3-4: Mild degenerative apophyseal change is noted. Circumferential disc bulge is seen. Calcification is noted within the posterior annulus. Findings cause moderate central canal stenosis. Neural foramina are patent were the nerve roots exit. L4-5: Mild circumferential disc bulge is seen. Posterior disc shows a focal disc protrusion or herniation to the midline. This indents the anterior thecal sac and causes moderate central canal stenosis. Neural foramina are patent within the nerve roots exit. L5-S1: Mild diffuse posterior disc bulge is seen with calcification within posterior annulus. No central canal stenosis is seen. Right-sided neural foraminal stenosis is seen. Bladder shows mild dilatation. No fracture is seen. Impression: 1. Diffuse degenerative change as noted above. Most prominent finding is central canal stenosis at L3-4 and L4-5. 2. Mildly dilated urine filled bladder. Diagnostic code #3 This report was dictated in MDT
--- NOTE | 2020-04-14 08:41 | CT ---
CT abdomen and pelvis Technique: Multiple axial sections were obtained from above the dome of the diaphragm inferiorly through the pubic symphysis. Intravenous contrast was utilized. No oral contrast has been given. Comparison: No prior abdominal imaging is available. Findings: Several small calcified granulomas are noted within the right lung base. Fatty infiltration is noted within the liver. Liver shows no focal parenchymal abnormality. Spleen appears normal. Adrenal glands show no nodule. Pancreas shows no abnormality. Gallbladder contains no calcified gallstones. Kidneys show symmetric contrast enhancement without hydronephrosis or mass. Aorta shows no aneurysm. No retroperitoneal adenopathy or mesenteric abnormalities are seen. No pelvic mass or adenopathy is seen. No free fluid or inflammatory change is appreciated. Appendix not visualized with certainty. Bladder mildly dilated with urine. Bone window settings were reviewed which shows mild degenerative change scattered throughout the spine. No acute osseous finding is appreciated. Impression: 1. Mildly dilated bladder. 2. Nothing acute is appreciated on CT study of the abdomen and pelvis. Diagnostic code #2 This report was dictated in MDT
--- NOTE | 2020-04-14 08:47 | CT ---
CT thoracic spine Technique: Multiple axial sections were obtained through the thoracic spine. Reconstructed coronal and sagittal images were obtained. Comparison: No prior thoracic spine imaging. Findings: Schmorl's node deformities, disc space narrowing and anterior endplate osteophytes are noted within the mid and lower thoracic spine. No acute compression deformities are seen. No acute fracture is identified. Mild degenerative change is scattered within the apophyseal joints. No bony central or neural foraminal stenosis is seen. Impression: 1. Mild degenerative changes small no deformities. 2. Nothing acute is appreciated. No bony central or bony neural foraminal stenosis is seen. Diagnostic code #2 This report was dictated in MDT
[2020-04-14] MEDS ORDERED: Cefepime 2 GM in Premix Bag 1 BAG IV ONE (09:27)
[2020-04-14] MEDS ORDERED: SODIUM CHLORIDE 0.9% IV ONE ×2 (09:30→11:30)
[2020-04-14] MEDS ORDERED: VANCOMYCIN IV ONE ×2 (09:30→11:30)
--- NOTE | 2020-04-14 11:18 | MR ---
MRI lumbar spine Technique: T1 and T2-weighted axial images were obtained from above the T12-L1 disc inferiorly through the L5-S1 disc. T1, T2 and fat suppressed inversion recovery sagittal images were obtained. Comparison: Previous CT lumbar spine study performed earlier on the same day as well as previous MRI lumbar spine study performed on 02/08/19. Findings: Motion artifact is seen mostly on the T2 axial sections. T12-L1: Posterior disc space narrowing is noted. No central canal stenosis or neural foraminal stenosis is seen. L1-2: Posterior disc is preserved. No central canal stenosis or neural foraminal stenosis is seen. L2-3: Posterior disc is preserved. No central canal stenosis or neural foraminal stenosis is seen. L3-4: Mild disc space narrowing is seen. Disc herniation is seen posteriorly to the midline. Findings are fairly stable from previous exam. Minimal circumferential disc bulge is also noted. Moderate central canal stenosis is seen. Mild degenerative apophyseal change is noted with slight thickening of the ligamentum flavum. Neural foramina appear patent where the nerve roots exit. L5-S1: Circumferential disc bulge is seen. Asymmetric disc protrusion is seen posterior. Minimal central canal stenosis is noted. Neural foramina are patent where the nerve roots exit. Findings are fairly stable from prior exam. L5-S1: Mild diffuse posterior disc bulge is seen. No central canal stenosis is noted. Right-sided neural foraminal stenosis is seen causing compromise upon the exiting right L5 nerve root. Left L5 nerve root exits without compromise. This finding is felt to be fairly stable from previous exam. Conus medullaris and cauda equina shows no abnormal signal or mass. Mild degenerative dehydration change is noted within the L3-4 through L5-S1 disks. Impression: 1. Disc herniation to the midline with circumferential disc bulge at L3-4 causing moderate central canal stenosis. Findings are fairly similar to previous exam. 2. Small disc protrusion at L4-5 causing mild central canal stenosis which is also stable. 3. Right-sided neural foraminal stenosis at L4-5 causing compromise upon the exiting right L5 nerve root which also is stable from prior exam. Note: No significant change from previous MRI is seen. Diagnostic code #3 This report was dictated in MDT
--- NOTE | 2020-04-14 11:20 | MR ---
MRI thoracic spine Technique: T2-weighted axial images were obtained through the thoracic spine. T1, T2 and fat suppressed inversion recovery sagittal images were obtained. Comparison: Prior thoracic spine CT exam performed earlier on the same day, no prior thoracic spine MRI is available. Findings: Disc space narrowing and Schmorl's node deformities are seen within the mid to lower thoracic spine. Posterior discs are preserved. No significant disc bulge or disc herniation is appreciated. No central canal stenosis is seen. Neural foramina are patent where the nerve roots exit. Thoracic cord shows no abnormal signal or mass. No bone marrow edema is identified. Impression: 1. Disc space narrowing and Schmorl's deformities. 2. No significant disc bulge or disc herniation is seen posteriorly. No central canal stenosis or neural foraminal stenosis is seen. 3. Thoracic cord shows no abnormal signal. Diagnostic code #2 This report was dictated in MDT
[2020-04-14 12:27] VITALS: BP 127/78; PULSE 143
== END 2020-04-14 12:55 ==
LOC: MW.ED 06:38
DX: M54.5 Low back pain (principal); I10 Essential (primary) hypertension; E11.9 Type 2 diabetes mellitus without complications; M10.9 Gout, unspecified; E66.01 Morbid (severe) obesity due to excess calories; Z68.41 Body mass index [BMI] 40.0-44.9, adult; E78.5 Hyperlipidemia, unspecified; R00.0 Tachycardia, unspecified; Z79.4 Long term (current) use of insulin; Z79.899 Other long term (current) drug therapy
CPT/HCPCS: 36415; 51702; 72128; 72131; 72146; 72148; 74177; 80053; 81001; 82550; 83605; 85025; 85652; 86140; 87040; 96361; 96365; 96367; 96375; 96376; 99285; A9270; J0692; J1170; J3010; J3370; J7030; Q9967; 99284

== ENCOUNTER 2020-08-21 04:55 | Emergency (ER) | payer MEDICAID ==
--- NOTE | 2020-08-21 05:08 | EDM.PDOC ---
<Vitaliy Mims - Last Filed: 08/21/20 06:52> ED HPI GENERAL MEDICAL PROBLEM - General Chief Complaint: Respiratory Problem Stated Complaint: COVID POSSIBLE, TROUBLE BREATHING Time Seen by Provider: 08/21/20 05:08 - History of Present Illness INITIAL COMMENTS - FREE TEXT/NARRATIVE: History of present illness: Tonight the patient is short of breath and feels like he has a fever. He has a cough. Is felt weak, had loss of appetite, had cough and soreness in his chest since 15 August 2020. There is of his family are sick as well. They have all been tested for influenza and strep admits negative. Their Covid tests are pending. Is a diabetic but otherwise has enjoyed reasonably good health. Patient has no appetite and has not eaten anything different for the last 4 days. He is fatigued weak and short of breath. [] Review of systems: As per history of present illness and below otherwise all systems reviewed and negative. Past medical history: As per history of present illness and as reviewed below otherwise noncontributory. Surgical history: As per history of present illness and as reviewed below otherwise noncontributory. Social history: No reported history of drug or alcohol abuse. Family history: As per history of present illness and as reviewed below otherwise noncontributory. Physical exam: Constitutional - well developed, well-nourished and in no acute distress HEENT - normocephalic, no evidence of trauma - external nose and mouth normal - no mass in neck and no JVD - mucosae moist EYES - full EOM, PERRL, no icterus - no evidence of inflammation, injection, or drainage Respiratory -tender sternal borders reproduces his chest pain no respiratory distress, equal bilateral expansion, lungs really diminished to auscultation and otherwise no abnormal lung sounds Cardiovascular - Regular Rhythm with S1 and S2 appreciated and no murmur, gallop or rub. GI - abdomen soft without distension or organomegaly - normal bowel sounds - no guard or rebound Musculoskeletal no gross deformity of long bones or joints - no tenderness, swelling or edema Neurologic - Alert and oriented times four - CN II-XII grossly intact - motor sensory and coordination symmetrically normal Psychiatric - appropriate mood and affect with normal thought content Hematologic - No petechiae or purpura - mucosa appropriate color and sclera not pale - normal nail bed color and refill Integument - no rash or evidence of trauma - normal turgor Diagnostics: [] Therapeutics: [] Impression: [] Plan: [] Definitive disposition and diagnosis as appropriate pending reevaluation and review of above. - Related Data Allergies Allergy/AdvReac Type Severity Reaction Status Date / Time No Known Allergies Allergy Verified 04/14/20 06:49 Home Meds: Home Meds Pantoprazole Sodium [Protonix] 40 mg PO DAILY 10/28/18 [History] Rosuvastatin Calcium 20 mg PO BEDTIME 10/28/18 [History] lisinopriL [Prinivil] 5 mg PO DAILY 10/28/18 [History] metFORMIN HCl [Glucophage] 1,000 mg PO BIDMEALS 10/28/18 [History] Insulin Glarg,Human.Rec.Analog [Lantus] 15 units SQ BEDTIME 07/06/19 [History] Empagliflozin [Jardiance] 10 mg PO DAILY 04/14/20 [History] Past Medical History - Past Health History Medical/Surgical History: Denies Medical/Surgical History HEENT History: Reports: None Other HEENT History: multiple dental caries Cardiovascular History: Reports: Hypertension Other Cardiovascular History: pt claimed that he has on and off high BP but not on any medication Respiratory History: Reports: None Gastrointestinal History: Reports: None Other Gastrointestinal History: on and off nausea and vomiting for past 2 years Genitourinary History: Reports: None Other Genitourinary History: fatty liver disease Musculoskeletal History: Reports: Gout Neurological History: Reports: None Psychiatric History: Reports: Anxiety Endocrine/Metabolic History: Reports: Diabetes, Type II Hematologic History: Reports: None Immunologic History: Reports: None Oncologic (Cancer) History: Reports: None - Infectious Disease History Infectious Disease History: Reports: Chicken Pox - Past Surgical History HEENT Surgical History: Reports: Tonsillectomy Cardiovascular Surgical History: Reports: None GI Surgical History: Reports: Appendectomy Social & Family History - Family History Family Medical History: Noncontributory - Caffeine Use Caffeine Use: Reports: None Caffeine Use Comment: "every week" - Living Situation & Occupation Living situation: Reports: Single, with Family Occupation: Unemployed ED ROS GENERAL - Review of Systems Review Of Systems: Comprehensive ROS is negative, except as noted in HPI. ED EXAM, GENERAL - Physical Exam Exam: See Below Free Text/Narrative:: My physical exam is in the HPI #1 Interpretation EKG Interpretation Comments: EKG was done 1029 at 6:01 AM and read at 613 109. [place] interval of 166. QT 491. [place] 87. Nonspecific intraventricular conduction delay nonspecific T wave abnormalities. Impression no obvious acute injury. 09/01/2017 slight increase0 QRS duration otherwise no change Course - Vital Signs Text/Narrative:: At the end of my shift we had not successfully gotten the patient off oxygen. But the x-ray looks like bilateral pneumonia consistent with COVID-19 and the confirmatory lab test is pending. I turned the patient over to my partner to see if we could wean him off oxygen, get him home with bronchodilators, and whether he needed to be admitted or transferred. Departure - Departure Disposition: DC/Tfer to Other 70 Clinical Impression: COVID-19 Bilateral pneumonia Qualifiers: Pneumonia type: due to unspecified organism Lung location: unspecified part of lung Qualified Code(s): J18.9 - Pneumonia, unspecified organism - Discharge Information Referrals: Dominick Lang MD [Primary Care Provider] - Forms: ED Department Discharge <Thang Clarke - Last Filed: 08/21/20 07:59> Course - Vital Signs Last Recorded V/S: Last Vital Signs Temp 99.6 F 08/21/20 04:58 Pulse 114 H 08/21/20 07:37 Resp 19 08/21/20 07:37 BP 83/35 L 08/21/20 07:37 Pulse Ox 92 L 08/21/20 07:37 - Orders/Labs/Meds Orders: Active Orders 24 hr Category Date Time Status Cardiac Monitoring [RC] . DIRECTED Care 08/21/20 05:12 Active EKG Documentation Completion [RC] AM Care 08/21/20 05:12 Active Pulse Oximetry [RC] ASDIRECTED Care 08/21/20 05:12 Active RT Post Treatment Assessment [RC] Click to Edit Care 08/21/20 05:32 Active RT Pre-Treatment Assessment [RC] Click to Edit Care 08/21/20 05:32 Active CULTURE BLOOD [BC] Stat Lab 08/21/20 05:43 Received CULTURE BLOOD [BC] Stat Lab 08/21/20 05:43 Received PROCALCITONIN [REF] Stat Lab 08/21/20 05:12 Received UA W/BHAVESH RFLX IF INDICATED [URIN] Stat Lab 08/21/20 05:13 Ordered Sodium Chloride 0.9% [Normal Saline] 1,000 ml Med 08/21/20 07:49 Active IV .Bolus Sodium Chloride 0.9% [Saline Flush] Med 08/21/20 05:12 Active 10 ml FLUSH ASDIRECTED PRN Sodium Chloride 0.9% [Saline Flush] Med 08/21/20 05:12 Active 2.5 ml FLUSH ASDIRECTED PRN Blood Culture x2 Reflex Set [OM.PC] Stat Oth 08/21/20 05:13 Ordered Saline Lock Insert [OM.PC] Stat Oth 08/21/20 05:12 Ordered Medication Orders Sodium Chloride (Normal Saline) 1,000 mls @ 999 mls/hr IV .Bolus ONE Stop: 08/21/20 08:49 Sodium Chloride (Saline Flush) 10 ml FLUSH ASDIRECTED PRN PRN Reason: Keep Vein Open Sodium Chloride (Saline Flush) 2.5 ml FLUSH ASDIRECTED PRN PRN Reason: Keep Vein Open Labs: Laboratory Tests 08/21/20 08/21/20 08/21/20 Range/Units 05:08 05:12 05:12 WBC 3.19 L (4.0-11.0) K/uL RBC 5.24 (4.50-5.90) M/uL Hgb 14.4 (13.0-17.0) g/dL Hct 41.0 (38.0-50.0) % MCV 78.2 L (80.0-98.0) fL MCH 27.5 (27.0-32.0) pg MCHC 35.1 (31.0-37.0) g/dL RDW Std Deviation 36.2 (28.0-62.0) fl RDW Coeff of Gato 13 (11.0-15.0) % Plt Count 103 L (150-400) K/uL MPV 9.90 (7.40-12.00) fL Neut % (Auto) 76.5 (48.0-80.0) % Lymph % (Auto) 16.3 (16.0-40.0) % Sully % (Auto) 6.9 (0.0-15.0) % Eos % (Auto) 0.0 (0.0-7.0) % Baso % (Auto) 0.3 (0.0-1.5) % Neut # (Auto) 2.4 (1.4-5.7) K/uL Lymph # (Auto) 0.5 L (0.6-2.4) K/uL Sully # (Auto) 0.2 (0.0-0.8) K/uL Eos # (Auto) 0.0 (0.0-0.7) K/uL Baso # (Auto) 0.0 (0.0-0.1) K/uL Nucleated RBC % 0.0 /100WBC Nucleated RBCs # 0 K/uL Lactate 1.2 (0.20-2.00) mmol/L Sodium (136-148) mmol/L Potassium (3.5-5.1) mmol/L Chloride (98-107) mmol/L Carbon Dioxide (21.0-32.0) mmol/L BUN (7.0-18.0) mg/dL Creatinine (0.8-1.3) mg/dL Est Cr Clr Drug Dosing mL/min Estimated GFR (MDRD) ml/min Glucose (74-106) mg/dL POC Glucose 163 H (60-110) mg/dL Calcium (8.5-10.1) mg/dL Total Bilirubin (0.2-1.0) mg/dL AST (15-37) IU/L ALT (14-63) IU/L Alkaline Phosphatase (46-116) U/L Troponin I (0.000-0.056) ng/mL Total Protein (6.4-8.2) g/dL Albumin (3.4-5.0) g/dL Globulin (2.6-4.0) g/dL Albumin/Globulin Ratio (0.9-1.6) Lipase (73-393) U/L SARS-CoV-2 RNA ([facility]) (NEGATIVE) 08/21/20 08/21/20 Range/Units 05:12 05:51 WBC (4.0-11.0) K/uL RBC (4.50-5.90) M/uL Hgb (13.0-17.0) g/dL Hct (38.0-50.0) % MCV (80.0-98.0) fL MCH (27.0-32.0) pg MCHC (31.0-37.0) g/dL RDW Std Deviation (28.0-62.0) fl RDW Coeff of Gato (11.0-15.0) % Plt Count (150-400) K/uL MPV (7.40-12.00) fL Neut % (Auto) (48.0-80.0) % Lymph % (Auto) (16.0-40.0) % Sully % (Auto) (0.0-15.0) % Eos % (Auto) (0.0-7.0) % Baso % (Auto) (0.0-1.5) % Neut # (Auto) (1.4-5.7) K/uL Lymph # (Auto) (0.6-2.4) K/uL Sully # (Auto) (0.0-0.8) K/uL Eos # (Auto) (0.0-0.7) K/uL Baso # (Auto) (0.0-0.1) K/uL Nucleated RBC % /100WBC Nucleated RBCs # K/uL Lactate (0.20-2.00) mmol/L Sodium 129 L (136-148) mmol/L Potassium 3.6 (3.5-5.1) mmol/L Chloride 93 L (98-107) mmol/L Carbon Dioxide 19.6 L (21.0-32.0) mmol/L BUN 10 (7.0-18.0) mg/dL Creatinine 1.0 (0.8-1.3) mg/dL Est Cr Clr Drug Dosing 131.41 mL/min Estimated GFR (MDRD) > 60.0 ml/min Glucose 152 H (74-106) mg/dL POC Glucose (60-110) mg/dL Calcium 8.0 L (8.5-10.1) mg/dL Total Bilirubin 0.6 (0.2-1.0) mg/dL AST 91 H (15-37) IU/L ALT 102 H (14-63) IU/L Alkaline Phosphatase 68 (46-116) U/L Troponin I < 0.050 (0.000-0.056) ng/mL Total Protein 7.2 (6.4-8.2) g/dL Albumin 3.3 L (3.4-5.0) g/dL Globulin 3.9 (2.6-4.0) g/dL Albumin/Globulin Ratio 0.9 (0.9-1.6) Lipase 143 (73-393) U/L SARS-CoV-2 RNA ([place]) POSITIVE H (NEGATIVE) Meds: Medications Generic Name Dose Route Start Last Admin Trade Name Leslye PRN Reason Stop Dose Admin Sodium Chloride 1,000 mls @ 999 mls/hr 08/21/20 07:49 Normal Saline IV 08/21/20 08:49 .Bolus ONE Sodium Chloride 10 ml 08/21/20 05:12 Saline Flush FLUSH ASDIRECTED PRN Keep Vein Open Sodium Chloride 2.5 ml 08/21/20 05:12 Saline Flush FLUSH ASDIRECTED PRN Keep Vein Open Discontinued Medications Generic Name Dose Route Start Last Admin Trade Name Leslye PRN Reason Stop Dose Admin Albuterol 8 gm 08/21/20 05:32 08/21/20 05:52 Ventolin Hfa INH 08/21/20 05:33 2 puff STAT STA Administration Dexamethasone 10 mg 08/21/20 06:39 08/21/20 06:52 Dexamethasone IVPUSH 08/21/20 06:40 10 mg ONETIME ONE Administration Dexamethasone Confirm 08/21/20 06:48 08/21/20 06:52 Dexamethasone Administered 08/21/20 06:49 Not Given Dose 10 mg .ROUTE .STK-MED ONE Sodium Chloride 1,000 mls @ 999 mls/hr 08/21/20 05:14 08/21/20 05:15 Normal Saline IV 08/21/20 06:14 999 mls/hr .BOLUS ONE Administration Sodium Chloride 1,000 mls @ 999 mls/hr 08/21/20 06:19 08/21/20 06:32 Normal Saline IV 08/21/20 07:19 999 mls/hr .Bolus ONE Administration Ketorolac Tromethamine 15 mg 08/21/20 06:20 08/21/20 06:32 Toradol IVPUSH 08/21/20 06:21 15 mg ONETIME ONE Administration - Re-Assessments/Exams Free Text/Narrative Re-Assessment/Exam: 08/21/20 07:58 Patient's O2 saturations remain low. Still with low BP; additional 1-L IVFB ordered. Patient has been accepted for transfer at [facility] by Dr. Palomo. Departure - Departure Time of Disposition: 07:58 Sepsis Event Note (ED) - Focused Exam Vital Signs: Vital Signs Temp Pulse Resp BP Pulse Ox 08/21/20 07:37 114 H 19 83/35 L 92 L 08/21/20 07:31 113 H 18 84/29 L 90 L 08/21/20 07:07 115 H 19 82/25 L 92 L 08/21/20 06:57 91 L 08/21/20 06:35 115 H 30 H 99/53 L 93 L 08/21/20 05:54 106 H 26 H 100/49 L 94 L 08/21/20 04:58 99.6 F 120 H 26 H 96/61 88 L - My Orders Last 24 Hours: My Active Orders 08/21/20 07:49 Sodium Chloride 0.9% [Normal Saline] 1,000 ml IV .Bolus - Assessment/Plan Last 24 Hours: My Active Orders 08/21/20 07:49 Sodium Chloride 0.9% [Normal Saline] 1,000 ml IV .Bolus
[2020-08-21] MEDS ORDERED: Sodium Chloride 0.9% 10 ML Syringe FLUSH PRN (05:12)
[2020-08-21] MEDS ORDERED: Sodium Chloride 0.9% 2.5 ML Syringe FLUSH PRN (05:12)
[2020-08-21] MEDS ORDERED: Sodium Chloride 0.9% 1,000 ML IV ONE ×3 (05:14→07:49)
[2020-08-21] MEDS ORDERED: Albuterol HFA 18 Gm Inhaler INH STA (05:32)
--- NOTE | 2020-08-21 05:53 | CR ---
INDICATION: Fever and shortness of breath TECHNIQUE: Chest radiograph 1 view COMPARISON: 06/23/2017 FINDINGS: Mediastinum: The mediastinum is normal in appearance. The heart silhouette is normal in size and morphology. Lung: Small lung volumes are present with patchy peribronchial and subpleural consolidation seen bilaterally, suspicious for COVID-19 infection. No sign of pleural effusion seen. No pneumothorax is identified. Bone and Soft tissue: Unremarkable for age. IMPRESSION: 1. Small lung volumes are present with patchy peribronchial and subpleural consolidation seen bilaterally, suspicious for COVID-19 infection. Dictated by Pop Astudillo MD @ 08/21/2020 5:52:02 AM Dictated by: Pop Astudillo MD @ 08/21/2020 05:52:08 (Electronically Signed)
[2020-08-21 05:59] LABS: BLOOD UREA NITROGEN,BUN 10 mg/dL (7.0-18.0); CARBON DIOXIDE,CO2 19.6 mmol/L (21.0-32.0); CHLORIDE,CL 93 mmol/L (98-107); GLUCOSE RANDOM 152 mg/dL (74-106); LIPASE 143 U/L (73-393); POTASSIUM,K 3.6 mmol/L (3.5-5.1); SODIUM,NA 129 mmol/L (136-148)
[2020-08-21] MEDS ORDERED: Ketorolac 15 MG/ML SDV IVPUSH ONE (06:20)
[2020-08-21] MEDS ORDERED: Dexamethasone 10 MG/ML SDV IVPUSH ONE (06:39)
[2020-08-21] MEDS ORDERED: Dexamethasone 10 MG/ML SDV ONE (06:48)
[2020-08-21 08:41] VITALS: PULSE 105
[2020-08-21 09:14] VITALS: BP 102/36
[2020-08-21] MEDS ORDERED: Acetaminophen/oxyCODONE 325-5 MG Tab PO ONE (09:22)
== END 2020-08-21 10:51 | disposition other institution (70) ==
LOC: MW.ED 04:55
DX: U07.1 COVID-19 (principal); J12.89 Other viral pneumonia; I10 Essential (primary) hypertension; E11.9 Type 2 diabetes mellitus without complications; Z79.4 Long term (current) use of insulin; Z79.899 Other long term (current) drug therapy
CPT/HCPCS: 36415; 71045; 80053; 82962; 83605; 83690; 84145; 84484; 85025; 87040; 87635; 93005; 96374; 96375; 99285; A9270; J1100; J1885; J7030; J3535-GY; U0002

== ENCOUNTER 2025-05-14 03:56 | Emergency (ER) | payer BC ==
[2025-05-14 04:12] VITALS: BP 137/98; PULSE 99
== END 2025-05-14 04:14 | disposition home or self-care (01) ==
LOC: MW.ED 03:56
DX: L60.0 Ingrowing nail (principal); I10 Essential (primary) hypertension; E11.9 Type 2 diabetes mellitus without complications; Z79.899 Other long term (current) drug therapy; Z79.4 Long term (current) use of insulin; Z86.16 Personal history of COVID-19; Z90.49 Acquired absence of other specified parts of digestive tract
CPT/HCPCS: 99283